=== PATIENT | female | born 1950 | race African-American/Black ===

== ENCOUNTER 2022-11-28 07:10 | Outpatient (REF) | payer OTHER, SELFPAY ==
--- NOTE | ~2022-11-28 | CT_ITS ---
EXAMINATION: CT HEAD WITHOUT CONTRAST CLINICAL INFORMATION: Headache. Tension-type headache. COMPARISON: None. TECHNIQUE: Contiguous axial imaging was performed from the skull base to vertex without intravenous contrast. This CT examination was performed using dose optimization techniques as appropriate, variously including the following: * Automated exposure control * Adjustment of mA and/or kV according to patient size (this includes techniques or standardized protocols for targeted exams where dose is matched to indication/reason for exam; i.e. extremities or head) Use of iterative reconstruction technique DLP: 756 mGy-cm. FINDINGS: There is no evidence of acute intracranial hemorrhage or territorial infarction. No abnormal mass effect or midline shift is seen. Maharaj to white matter differentiation is well preserved. No extra-axial fluid collections are identified. No hydrocephalus. No significant volume loss. There is no abnormal attenuation within the brain parenchyma. The osseous structures and soft tissues are normal. The mastoid air cells and visualized portions of the paranasal sinuses are well aerated. CT/CT head/brain wo IV con IMPRESSION: No acute intracranial pathology.
== END 2022-11-28 07:11 | disposition home or self-care (01) ==
LOC: HO.CT 07:10
PROVIDERS: PCP Hospitalist; Visit Provider Hospitalist
DX: G44.209 Tension-type headache, unspecified, not intractable (principal)
CPT/HCPCS: 70450

== ENCOUNTER 2022-11-30 10:36 | Outpatient (REF) | payer OTHER, SELFPAY ==
--- NOTE | ~2022-11-30 | XR_ITS ---
EXAMINATION: XR CHEST 2 VIEWS CLINICAL INFORMATION: Nonspecific reaction to tuberculosis skin test. COMPARISON: None. TECHNIQUE: Frontal and lateral views of the chest were obtained. FINDINGS: The heart, great vessels, pulmonary vasculature and mediastinum are normal. The lungs show no focal infiltrate, effusion or pneumothorax. No nodule, mass or thoracic adenopathy is seen. There is no acute osseous abnormality. XR/XR chest 2V IMPRESSION: No active cardiopulmonary disease.
--- NOTE | ~2022-11-30 | XR_ITS ---
EXAMINATION: XR PELVIS CLINICAL INFORMATION: Osteoarthritis COMPARISON: None TECHNIQUE: Single frontal view of the pelvis obtained. FINDINGS: There is no radiographic evidence of acute fracture or dislocation. No osteolytic or osteoblastic lesions. Mild degenerative osteoarthritis of both hip joints, and symphysis pubis.. Adjacent pubic rami are intact. Surrounding soft tissue is unremarkable. There is a small bone growth protruding from the cortex of the lesser trochanter toward the joint left femur measures 2 cm with well-defined sclerotic borders, most likely osteochondroma. XR/XR pelvis 1-2V IMPRESSION: * No radiographic evidence of acute fracture. * Mild degenerative osteoarthritis. * 2 cm bone growth protruding from the cortex of the lesser trochanter toward the left hip, most likely osteochondroma.
== END 2022-11-30 10:37 | disposition home or self-care (01) ==
LOC: HO.XRAY 10:36
PROVIDERS: PCP Hospitalist; Visit Provider Nurse Practitioner Adult Health
DX: M19.90 Unspecified osteoarthritis, unspecified site (principal); R76.11 Nonspecific reaction to tuberculin skin test without active tuberculosis
CPT/HCPCS: 71046; 72170

== ENCOUNTER 2022-12-20 10:51 | Outpatient (REF) | payer OTHER, SELFPAY ==
--- NOTE | ~2022-12-20 | MM_ITS ---
EXAMINATION: BONE DENSITOMETRY CLINICAL INDICATION: Screening. COMPARISON: None (current study represents initial baseline exam). TECHNIQUE: Using a [employer] DXA System (software version: 13.1) manufactured by [employer], dual-energy x-ray absorptiometry was performed of the lumbar spine and left hip. The images are of good technical quality. Summary results are attached. FINDINGS: AP SPINE L1-L4: BMD 1.132 g/cm2, Z-score 0.2, T-score -0.4, normal. LEFT FEMUR, NECK: BMD 0.825 g/cm2, Z-score -0.9, T-score -1.5, osteopenia. LEFT FEMUR, TOTAL: BMD 0.869 g/cm2, Z-score -0.8, T-score -1.1, osteopenia. IDENTIFIED RISK FACTORS: Menopause, height loss, history of fracture (adult), low calcium intake, rheumatoid arthritis, thiazide. HISTORY OF FRACTURE: Elbow. MEDICATIONS: Calcium, vitamin D. MM/XR DEXA axial skeleton IMPRESSION: 1. DIAGNOSIS: Osteopenia based on the lowest T-score value of -1.5 in the femoral neck applying World Health Organization criteria. 2. 10-YEAR FRACTURE RISK PREDICTION, FRAX: Major osteoporotic fracture (clinical spine, forearm, hip or shoulder) 9.5%. Hip fracture 1.6%. 3. Treatment Recommendations: NOF guidelines recommend consideration for treatment in postmenopausal women and men age 50 and older presenting with the following: -A hip or vertebral (clinical or morphometric) fracture. -T-score less than or equal to -2.5 at the femoral neck or spine after appropriate evaluation to exclude secondary causes. -Low bone mass at the hip or spine and a 10-year fracture probability by FRAX of greater than or equal to 3% for hip fracture or greater than or equal to 20% for major osteoporotic fracture based on the [place] adapted WHO algorithm. 4. Other Recommendations: All treatment decisions require clinical judgment and consideration of individual patient factors, including patient preferences, comorbidities, previous drug use, risk factors not captured in the FRAX model (e.g. frailty, falls, vitamin D deficiency, increased bone turnover, interval significant decline in bone density) and possible under or overestimation of fracture risk by FRAX. Additional medical evaluation for secondary cause of low bone mineral density may be appropriate. FUTURE SCAN RECOMMENDATION: People with diagnosed cases of osteoporosis or at high risk for fracture should have regular bone mineral density tests. For patients eligible for Medicare, routine testing is allowed once every 2 years. The testing frequency can be increased to one year for patients who have rapidly progressing disease, those who are receiving or discontinuing medical therapy to restore bone mass, or have additional risk factors.
--- NOTE | ~2022-12-20 | US_ITS ---
EXAMINATION: US ABDOMEN COMPLETE CLINICAL INFORMATION: Abdominal pain. COMPARISON: None TECHNIQUE: Real-time imaging of the abdominal viscera. FINDINGS: PANCREAS: Normal. ABDOMINAL AORTA: The proximal, mid, and distal segments are normal in caliber. INFERIOR VENA CAVA: Visualized portions are normal. LIVER: The liver is normal in size. The liver contour is normal. There is diffuse increased liver parenchymal echogenicity, consistent with infiltrative hepatocellular disease. No focal hepatic lesion. There is no intrahepatic biliary duct dilatation seen. GALLBLADDER: Normal. The gallbladder is physiologically distended without evidence of stones, sludge, polyps, wall thickening or pericholecystic fluid. COMMON BILE DUCT: Normal in caliber measuring 0.4 cm in diameter. RIGHT KIDNEY: A 0.8 cm benign-appearing renal cyst, no follow-up imaging recommended. No hydronephrosis or renal calculi. The kidney measures 10.8 cm in maximum dimension. LEFT KIDNEY: Normal. No hydronephrosis. No renal calculi or focal parenchymal lesions. The kidney measures 9.9 cm in maximum dimension. SPLEEN: Normal. The spleen measures 6.4 cm in maximum dimension. FREE FLUID: None. US/US abdomen complete IMPRESSION: Increased hepatic echogenicity which can be seen in the setting of hepatic steatosis or underlying liver disease.
--- NOTE | ~2022-12-20 | MM_ITS ---
EXAMINATION: MM SCREENING DIGITAL BREAST TOMOSYNTHESIS, BILATERAL CLINICAL INFORMATION: Screening. Asymptomatic. The lifetime risk of breast cancer based on the Tyrer-Cuzick Model is 8.8%. COMPARISON: Mammography: February 06, 2022 and studies dating back to November 25, 2019 TECHNIQUE: Digital breast tomosynthesis is performed in both the craniocaudal and mediolateral oblique views along with computer-aided detection (CAD). Synthesized 2D images are generated from the tomosynthesis. FINDINGS: The breasts are heterogeneously dense, which may obscure small masses (ACR BI-RADS breast composition Category c). There are no significant masses, abnormal calcifications, or other abnormalities. MM/MM tomosynthesis screening BI IMPRESSION: No significant changes from prior exam. ASSESSMENT: BI-RADS 1: Negative RECOMMENDATION: Routine annual mammography screening. This patient's information was entered into a reminder system with a target due date for their next mammogram.
== END 2022-12-20 10:52 | disposition home or self-care (01) ==
LOC: HO.US 10:51
PROVIDERS: Visit Provider Nurse Practitioner Adult Health
DX: Z12.31 Encounter for screening mammogram for malignant neoplasm of breast (principal); Z13.820 Encounter for screening for osteoporosis; R10.9 Unspecified abdominal pain; Z78.0 Asymptomatic menopausal state
CPT/HCPCS: 76700; 77063; 77067; 77080

== ENCOUNTER 2025-06-02 14:44 | Outpatient (AMB) | payer MEDICARE, SELFPAY ==
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
--- NOTE | 2025-06-02 14:46 | A.OFFVIS_ITS ---
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 State she has a cyst that has been there for about 6 moths and is causing pain, burning and limited ROM in small finger when making a fist. States no injury she can recall. Denies numbness, tingling or locking of any finger. Hx of left elbow fracture in 2002. Surgery was done at [facility]. STates last A1C was 7 and was done 2 moths ago. 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 She complains of a painful mass on her small finger for ~6 months-1 year now. This causes a burning sensation and limited ROM of her finger. She says this has been very tender for ~4 months. She denies any numbness or tingling. She denies any locking or catching [facility] Medical History (Updated 06/02/25 @ 15:02 by Ben Dominguez) Left elbow fracture Appendicitis Social History (Updated 06/02/25 @ 14:56 by Amisha Wills [facility]) Current occupational status: retired Current occupation: rt hand Review of Systems Const All systems reviewed & are unremarkable except as noted in HPI and below Physical Exam Vital Signs: BMI result Body Mass Index 29.5 Const General: cooperative, healthy appearing and no acute distress Orientation/consciousness: patient oriented x3 HEENT Head: Yes normocephalic and Yes atraumatic Eyes EOM: EOMs intact bilaterally Resp Effort & Inspection: normal respiratory effort and able to speak in complete sentences Cardio Jugular venous distension: no JVD Skin General skin exam: turgor normal Rashes: no rashes Neuro General: patient oriented x3 Extrem Other: Evaluation of Left Upper Extremity: The patient is alert, oriented, and in no acute distress Neuro: Median, Ulnar, Radial nerves motor and sensory intact and sensation is normal to the tips of all digits Vascular: Cap refill brisk ROM: She can make a fist and extend all her digits, with encouragement No locking or catching Skin: No lacerations or abrasions. General: No Ecchymosis. No Erythema or evidence of infection. There is a mass on the ulnar pad of the small finger. Measures ~5-6mm in diameter. Soft tissue mass, deep to the skin, rather TTP with a small amount of swelling around it. no erythema Psych Appearance: grossly normal Affect: normal affect Attitude: cooperative Assessment & Plan Assessment & Plan (1) Mass of finger of left hand: Code(s): R22.32 - Localized swelling, mass and lump, left upper limb Category: Medical (2) Diabetes mellitus: Code(s): E11.9 - Type 2 diabetes mellitus without complications Category: Medical Plan Assessment & Plan: 1. Left small finger painful mass Measures ~5-6 in diameter I educated her about this condition I discussed operative and non-operative treatment options The patient would like to proceed with surgery The risks and benefits of operative treatment were discussed with the patient and the patient wishes to proceed with surgery. These risks include, but are not limited to risk of damage to blood vessels, nerves, tendons, infection, recurrence, incomplete relief of preoperative symptoms, persistent pain, possible need for further surgery and the risks associated with regional blocks and anesthesia. The plan is to take the patient to the operating room sometime in the next few weeks for the following procedures: 1. Left small finger mass excisional biopsy, under local All of the preoperative paperwork including the consent was reviewed today. All the patient's questions were answered. The patient understands that they will be contacted by our supervisor belt and link assembly soon to schedule this procedure She denies blood thinners, asthma, heart, lung, kidney issues She is a Diabetic, her most recent HgA1c was ~7.1%. They will need an updated HgA1c that is <8.1% in order to proceed with surgery, and they expressed understanding Scribed for Alix Murphy MD by Ben Dominguez, manager medical device, on 06/02/25 at 3:00 PM, EST. Coding Level of Care Code New Pt Level 4 (15684) Diagnoses Mass of finger of left hand R22.32 Diabetes mellitus E11.9
[2025-06-02 14:47] VITALS: BMI 29.5
== END 2025-06-02 15:10 | disposition home or self-care (01) ==
PROVIDERS: PCP Hospitalist; Visit Provider Orthopaedic Surgery
DX: R22.32 Localized swelling, mass and lump, left upper limb (principal); E11.9 Type 2 diabetes mellitus without complications
CPT/HCPCS: 99204

== ENCOUNTER → 2025-06-02 14:44 | Outpatient (BNVA) | payer MEDICARE, SELFPAY | PROVIDERS: PCP Hospitalist; Visit Provider Orthopaedic Surgery | DX: R22.32 Localized swelling, mass and lump, left upper limb (principal); E11.9 Type 2 diabetes mellitus without complications | CPT/HCPCS: 99202 ==

== ENCOUNTER 2025-06-07 08:15 | Day surgery (SDC) | payer MEDICARE, SELFPAY ==
--- OUTSIDE RECORDS SUMMARY | 2025-06-03 10:03 | XMS_ITS | Patient Health Record ---
Author Organization [facility] Address [address] [place] [address] Care Team Providers Care Senior Visual Designer Name Role Phone ERICH REYES Primary Care Provider Vaughn Stiles Unavailable [phone] Allergies Allergen (clinical drug ingredient) Drug/Non Drug Allergy documented on EMR Reaction Allergy Type Onset Date Status lisinopril Lisinopril swelling of lips Drug Allergy Active Results Component Value Reference Range Notes Albumin/Creatinine Ratio,Uri ne-[id number] Reviewed date:01/14/2025 07:48:49 AM Interpretation: Performing Lab:[facility], [address] [facility], Phone - [phone], Director - MDJodry Notes/Report: Creatinine, Urine 90.9 Not Estab. mg/dL Albumin, Urine <3.0 Not Estab. ug/mL Alb/Creat Ratio <3 0-29 mg/g creat Normal: 0 - 29 Moderately increased: 30 - 300 Severely increased: >300 Lipid Panel-[id number] Reviewed date:01/14/2025 07:48:52 AM Interpretation: Performing Lab:[facility], [address] [facility], Phone - [phone], Director - MDJodry Notes/Report: Cholesterol, Total 183 100-199 mg/dL Triglycerides 135 0-149 mg/dL HDL Cholesterol 52 >39 mg/dL VLDL Cholesterol Lui 24 5-40 mg/dL LDL Chol Calc ([facility]) 107 0-99 mg/dL Comp. Metabolic Panel (14)-3 Reviewed date:01/14/2025 07:48:56 AM Interpretation: Performing Lab:[facility], [address] [facility], Phone - [phone], Director - MDJodry Notes/Report: Glucose 96 70-99 mg/dL BUN 12 8-27 mg/dL Creatinine 0.82 0.57-1.00 mg/dL eGFR 75 >59 mL/min/1.73 BUN/Creatinine Ratio 15 12-28 Sodium 144 134-144 mmol/L Potassium 4.4 3.5-5.2 mmol/L Chloride 103 96-106 mmol/L Carbon Dioxide, Total 27 20-29 mmol/L Calcium 9.8 8.7-10.3 mg/dL Protein, Total 6.9 6.0-8.5 g/dL Albumin 4.3 3.8-4.8 g/dL Globulin, Total 2.6 1.5-4.5 g/dL Bilirubin, Total 0.2 0.0-1.2 mg/dL Alkaline Phosphatase 98 44-121 IU/L AST (SGOT) 24 0-40 IU/L ALT (SGPT) 14 0-32 IU/L Hemoglobin [id number] Reviewed date:01/14/2025 07:48:59 AM Interpretation: Performing Lab:Alexis Obando, [address] [facility], Phone - [phone], Director - Chucho Notes/Report: Hemoglobin A1c 7.0 4.8-5.6 % . Prediabetes: 5.7 - 6.4 Diabetes: >6.4 Glycemic control for adults with diabetes: <7.0 Lipid Panel-[id number] Reviewed date:05/25/2025 12:04:40 PM Interpretation: Performing Lab:Alexis Obando, [address] [facility], Phone - [phone], Director - Chucho Notes/Report: Cholesterol, Total 158 100-199 mg/dL Triglycerides 208 0-149 mg/dL HDL Cholesterol 39 >39 mg/dL VLDL Cholesterol Lui 35 5-40 mg/dL LDL Chol Calc (NIH) 84 0-99 mg/dL Urine Culture, Routine-01000 7 Reviewed date:05/25/2025 10:57:28 AM Interpretation: Performing Lab:Neftaly Ornelas, [address], [place], Phone - [phone], Director - Rich Notes/Report: Clinical Information:SRC: URINE Clinical Information:SRC: URINE Urine Culture, Routine Final report Result 1 Culture shows less than 10,000 colony forming units of bacteria per milliliter of urine. This colony count is not generally considered to be clinically significant. Hemoglobin [id number] Reviewed date:05/25/2025 10:51:33 AM Interpretation: Performing Lab:[facility] [place], [address], [place], Phone - [phone], Director - Chucho Notes/Report: Hemoglobin A1c 7.7 4.8-5.6 % . Prediabetes: 5.7 - 6.4 Diabetes: >6.4 Glycemic control for adults with diabetes: <7.0 H. pylori Stool Ag, [id number] Reviewed date:12/22/2024 08:08:32 AM Interpretation: Performing Lab:[facility] [place], [address], [place], Phone - [phone], Director - Chucho Notes/Report: Clinical Information:SRC:ST H. pylori Stool Ag, EIA Negative Negative TISSUE EXAM Reviewed date:05/19/2025 05:47:31 PM Interpretation: Performing Lab: Notes/Report: Labeled random ga gastric bod . Received in formalin are five soft, guardado-pink to red tissue fragments ranging from 0.15 cm to 0.25 cm in greatest diameter, which are wrapped in paper and submitted in toto in one cassette, five pieces, multiple levels. B. Esophagus, ge junction biopsy: Unless otherwise specified, all tissue is 10% NB formalin fixed and paraffin embedded. Labeled GE Juncti esophagus . Received in formalin are two soft, red-white tissue fragments measuring approximately 0.25 cm in greatest diameter, which are wrapped in paper and submitted in toto in one cassette, two pieces, multiple levels. C. Gastric, Antrum, polyp: Labeled polyp gastric ant . Received in formalin is a soft, guardado, 0.35 cm in greatest diameter polypoid tissue which is inked green at the base, wrapped in paper and submitted in toto in one cassette, one piece, multiple levels. TS Final Diagnosis A. Stomach, random s ites, biopsy: - Gastric antral-type mucosa with patchy active inflammation and features of suggestive of chemical etiology (focal surface erosion, elongation and tortuosity of foveolar pits, and mucin depletion without a dense associated lymphoplasmacytic infiltrate). - No intestinal metaplasia identified. - No Helicobacter pylori identified on hematoxylin and eosin-stained sections. B. Gastroesophageal junction, biopsy: - Esophageal squamous mucosa with rare intraepithelial eosinophils (maximum of one intraepithelial eosinophil in a high-power field) and reactive changes including focal basilar hyperplasia and spongiosis. - Gastric cardiac type mucosa with chronic and patchy active inflammation and reactive epithelial changes. - No intestinal metaplasia and no dysplasia identified. - Although no Helicobacter pylori are seen on hematoxylin and eosin-stained sections, given the presence of chronic and active inflammation at this site, an immunohistochemical study for Helicobacter pylori was performed. The immunohistochemical study for Helicobacter pylori is negative (appropriate control reviewed). C. Polyp, antrum, polypectomy: - Gastric oxyntic type mucosa with patchy surface epithelial denudation, focal chronic inflammation and few mildly dilated fundic-type glands. (See note.) - Few fragments of refractile material that is birefringent on polarized light examination and a rare fragment of non-refractile material are noted, which raise the possibility of pill fragments (versus an artifact of specimen collection/processing). Note: Although the rare mildly dilated fundic glands raise the consideration of an incipient fundic gland polyp, the polypoid appearance to this tissue may be related to the chronic inflammation. The significance of the foreign material seen on H&E-stained sections is not entirely clear as there does not appear to be an associated tissue response. They could represent pill fragments or could be an artifact of specimen collection/processing. No intestinal metaplasia and no dysplasia are identified. Gross Description A. Gastric, Body, ra ndom biopsy: Disclaimer NOTE: The immunohistochemical tests and in situ hybridization tests were developed and their performance characteristics were determined by [facility]. They have not been cleared or approved by the U.S. Food and Drug Administration. The FDA has determined that such clearance or approval is not necessary. These tests are used for clinical purposes. They should not be regarded as investigational or for research. This laboratory is certified under the Clinical Laboratory Improvement Amendments of 1988 (CLIA) as qualified to perform high complexity clinical laboratory testing. (controls appropriate) CT CHEST WO CONTRAST Reviewed date:05/20/2025 10:44:02 AM Interpretation: Performing Lab: Notes/Report: Note See Note [facility], a member of [employer] Patient Name: LORIN HIGHTOWER Date of : 1950 Reason for Exam: cough Exam Date: 05/13/2025 [id number] EST Report Status: Final Ordering Provider: VAUGHN STILES PCP: ERICH REYES INDICATION: Cough TECHNIQUE: CT scan o f the chest obtained without contrast. Scanner: Viximo ed 64 slice VCT Dose reduction techn ique: ASIR (Adaptive statistical iterative reconstruction) and/or AEC (automated exposure control) Dose: total exam DLP 772 mGY per cm COMPARISON: No prior chest CT available for comparison. Chest x-ray from April 10, 2025 reviewed. FINDINGS: Lung mays are well aerated without infiltrates or effusions. Minimal atelectatic changes noted anterolaterally within the lung bases. 2 mm performed noncalcified nodule within the right lower lobe inferiorly on series 3 image 87 as well as series 3 image 80.. No thoracic lymphadenopathy. Trachea and esophagus are within normal limits. Heart normal in size and shape without pericardial effusion. Unopacified mediasti nal vascular structures are grossly normal in course and caliber for the patient's age. Bony structures of t he thorax demonstrate mild scoliotic changes. Visualized portion u pper abdomen are unremarkable. IMPRESSION: No infiltrates or effusions. 2 mm right lower lob e pulmonary nodules likely inflammatory. No thoracic lymphadenopathy. -------- FINAL REPOR T -------- Dictated By: Karely Grove Dictated Date: 05/13 15:00 ET Assigned Physician: Karely Grove Reviewed and Electronically Signed By: Karely Grove Signed Date: 025 15:05 ET Workstation ID: [id number] Transcribed By: Self Edit Transcribed Date: 05/13/2025 15:00 ET MR SHOULDER WO CONTRAST LEFT Reviewed date:11/16/2024 11:11:04 AM Interpretation: Performing Lab: Notes/Report: Note See Note [facility], a member of [employer] Patient Name: LORIN HIGHTOWER Date of : 1950 Reason for Exam: PAIN Exam Date: 11/09/2024 [id number] EST Report Status: Final Ordering Provider: MAYELA MCDONNELL PCP: ERICH REYES PROCEDURE: Left shou lder MRI INDICATION: Pain TECHNIQUE: Multiplan ar, multisequence MRI of the left shoulder Without contrast. COMPARISON: No prior s available. FINDINGS: There is severe rota tor cuff tendinosis. Diffuse high-grade partial-thickness articular surface tear of supraspinatus. Small focal full-thickness tear is seen along the anterior aspect of the supraspinatus at the footprint measuring 7 mm in AP dimension. No tendon retraction. Infraspinatus tendin osis without tear. Full-thickness tear of subscapularis with retraction of the torn fibers by approximately 2.4 cm of tendon retraction. Moderate, chronic mu scle atrophy at supraspinatus and subscapularis. Biceps tendon is sub luxed medially into the torn subscapularis fibers. Severe biceps tendinosis. No labral tear. No fracture or suspi cious marrow replacing lesion. Glenohumeral alignme nt is preserved. No focal cartilage defects. Moderate joint effus ion indicating with the subacromial/subdeltoid bursa. Small synovitis and debris noted within the joint. Glenohumeral and coracoclavicular ligaments are intact. Moderate degenerativ e changes are seen at the acromioclavicular joint with undersurface spurring. Small subacromial/subdeltoid bursal fluid. IMPRESSION: Severe rotator cuff tendinosis with full-thickness, retracted subscapularis tendon tear and chronic subscapularis muscle atrophy. Diffuse high-grade partial-thickness articular surface tear of supraspinatus with small focal full-thickness tear anteriorly at the footprint. No supraspinatus tendon retraction. Chronic supraspinatus muscle atrophy. Biceps tendon is sub luxed medially into the torn subscapularis fibers with severe biceps tendinosis. Moderate degenerativ e changes at the acromioclavicular joint with undersurface spurring. Small subacromial/subdeltoid bursitis. -------- FINAL REPOR T -------- Dictated By: RICARDO MATTA Dictated Date: 11/12 12:42 ET Assigned Physician: RICARDO MATTA Reviewed and Electronically Signed By: RICARDO MATTA Signed Date: 025 13:15 ET Workstation ID: [id number] Transcribed By: Self Edit Transcribed Date: 11/12/2024 12:59 ET Hgb A1c with eAG Estimation- [id number] Reviewed date:07/24/2024 04:36:33 PM Interpretation: Performing Lab:[facility] [place], [address] [facility], Phone - [phone], Director - Chucho Notes/Report: Hemoglobin A1c 7.0 4.8-5.6 % . Prediabetes: 5.7 - 6.4 Diabetes: >6.4 Glycemic control for adults with diabetes: <7.0 Estim. Avg Glu (eAG) 154 Ambig Abbrev CMP14 Default A hand-written panel/profile was received from your office. In accordance with the [facility] Ambiguous Test Code Policy dated May 2003, we have completed your order by using the closest currently or formerly recognized AMA panel. We have assigned Comprehensive Metabolic Panel (14), Test Code #114877 to this request. If this is not the testing you wished to receive on this specimen, please contact the [employer] Client Inquiry/Technical Services Department to clarify the test order. We appreciate your business. Lipid Panel-[id number] Reviewed date:07/24/2024 04:36:35 PM Interpretation: Performing Lab:[facility], [address] [facility], Phone - [phone], Director - Chucho Notes/Report: Cholesterol, Total 134 100-199 mg/dL Triglycerides 113 0-149 mg/dL HDL Cholesterol 48 >39 mg/dL VLDL Cholesterol Lui 20 5-40 mg/dL LDL Chol Calc (NIH) 66 0-99 mg/dL Comp. Metabolic Panel (14)-3 30166 Reviewed date:07/24/2024 04:36:37 PM Interpretation: Performing Lab:[facility] [place], [address] [facility], Phone - [phone], Director - Chucho Notes/Report: Glucose 99 70-99 mg/dL BUN 15 8-27 mg/dL Creatinine 0.79 0.57-1.00 mg/dL eGFR 79 >59 mL/min/1.73 BUN/Creatinine Ratio 19 12-28 Sodium 144 134-144 mmol/L Potassium 4.1 3.5-5.2 mmol/L Chloride 101 96-106 mmol/L Carbon Dioxide, Total 28 20-29 mmol/L Calcium 9.8 8.7-10.3 mg/dL Protein, Total 6.8 6.0-8.5 g/dL Albumin 4.4 3.8-4.8 g/dL Globulin, Total 2.4 1.5-4.5 g/dL Bilirubin, Total 0.3 0.0-1.2 mg/dL Alkaline Phosphatase 89 44-121 IU/L AST (SGOT) 29 0-40 IU/L ALT (SGPT) 17 0-32 IU/L Albumin/Creatinine Ratio,Uri [id number] Reviewed date:07/24/2024 04:36:43 PM Interpretation: Performing Lab:[facility] [place], [address], [place], Phone - [phone], Director - Chucho Notes/Report: Creatinine, Urine 123.4 Not Estab. mg/dL Albumin, Urine 14.2 Not Estab. ug/mL Alb/Creat Ratio 12 0-29 mg/g creat Normal: 0 - 29 Moderately increased: 30 - 300 Severely increased: >300 Reason For Referral Reason Evaluation and manag ement Diagnosis 1 Accident due to [facility] anical fall without injury, subsequent encounter (W19.XXXD) Referral Organization [facility] Referring Provider First Name Vaughn Referring Provider Last Name Linsey Referred Provider Specialty Physical The rapist General Notes Referral sent to [facility] [place] ([address] [place] [address] [phone]) - Office will call patient for scheduling. Debby Jersey 09/10/2024 04:32:39 PM > Referral Priority Routine Reason [facility], she w as seen by their department but need a referral Diagnosis 1 Other cyst of bone, left hand (M85.642) Referral Organization [facility] Referring Provider First Name Vaughn Referring Provider Last Name Linsey Referred Provider Specialty Hand Surgery General Notes Referral faxed to [facility]. Please call patient to schedule.Moris Christy 12/25/2024 04:55:22 PM > Referral Priority Routine Reason significant tear of 1 of the rotator cuff muscles and tendinitis along with osteoarthritis Diagnosis 1 Pain in left shoulde r (M25.512) Diagnosis 2 Unspecified osteoart hritis, unspecified site (M19.90) Referral Organization [facility] Referring Provider First Name ERICH Referring Provider Last Name AMY Referring Provider Speciality Internal M edicine Referred Provider Specialty Orthopedic S urgery General Notes Referral faxed to [facility]. Please call patient to schedule appointment.Jaison Crystal 11/16/2024 11:12:23 AM > Referral Priority Routine Reason [facility]-Please evaluate and treat Diagnosis 1 Other bursal cyst, u nspecified hand (M71.349) Referral Organization [facility] Referring Provider First Name Vaughn Referring Provider Last Name Linsey Referred Provider Specialty Hand Surgery General Notes Referral faxed to [facility]. Please call patient to schedule.Moris Christy 12/25/2024 04:46:39 PM > Referral Priority Routine Reason please evaluate and treat Diagnosis 1 Gastro-esophageal re flux disease without esophagitis (K21.9) Referral Organization [facility] Referring Provider First Name Vaughn Referring Provider Last Name Linsey Referred Provider Specialty Gastroentero logy General Notes Referral was [facility] t [facility]. Please contact patient for scheduling.Guzman Rashida 12/23/2024 07:59:14 AM > Referral Priority Routine Reason [facility] - Dr Jeniffer [facility] please evaluate and treat Diagnosis 1 Type 2 diabetes basilio itus with foot ulcer (E11.621) Referral Organization [facility] Referring Provider First Name ERICH Referring Provider Last Name AMY Referring Provider Speciality Internal edicine Referred Provider Specialty Podiatry General Notes Referral was faxed t o [facility]. Please contact patient for scheduling.Guzman Rashida 01/08/2025 01:13:21 PM > Referral Priority Routine Reason itching of scalp P lease evaluate and treat Diagnosis 1 Seborrhea capitis (L 21.0) Referral Organization [facility] Referring Provider First Name ERICH Referring Provider Last Name AMY Referring Provider Speciality Internal edicine Referred Provider Specialty Dermatology General Notes Please call the [facility] ent to schedule the appointment, [facility]. Please contact them at [phone], Rayna Pacheco 03/11/2025 04:21:53 PM > Referral Priority Routine Reason Cyst left 5 finger Please evaluate and treat Diagnosis 1 Sebaceous cyst (L72. 3) Referral Organization [facility] Referring Provider First Name ERICH Referring Provider Last Name JOHN Referring Provider Speciality Internal M edicine Referred Provider Specialty Surgery General Notes Please call the [facility]er ent to schedule the appointment, [facility]. Please contact them at [phone], Rayna Pacheco 03/18/2025 03:39:53 PM > Referral Priority Urgent Reason PLEASE EVALUATE AND TREAT Please evaluate and treat Diagnosis 1 Cough (R05.9) Referral Organization [facility] Referring Provider First Name Vaughn Referring Provider Last Name Linsey Referred Provider Specialty Pulmonology General Notes Please call the [facility] ent to schedule the appointment, Encounter created and SMS sent to the pt., Rayna Pacheco 04/26/2025 04:35:06 PM > Referral Priority Routine Medications Medication SIG (Take, Route, Frequency, Duration) Notes Start Date End Date Status hydrOXYzine HCl 25 MG 1 tablet as needed Orally Once a day; Duration: 30 days 12/31/2023 Not-Taking ZyrTEC 10 MG 1 tablet Orally Once a day; Duration: 30 day(s) Not-Taking Fluticasone Propionate 50 MCG/ACT SHAKE LIQUID AND USE 1 SPRAY in EACH NOSTRIL EVERY DAY Nasally Twice a day; Duration: 30 days Active tiZANidine HCl 2 MG TAKE 1 TABLET BY MOUTH THREE TIMES DAILY FOR 7 DAYS NEEDED; Duration: 7 Not-Taking Albuterol Sulfate HFA 108 (90 Base) MCG/ACT 1 puff as needed Inhalation every 4 hrs; Duration: 30 days Active Doxycycline Hyclate 50 MG 1 capsules Ora lly Twice a day; Duration: 7 days 02/19/2024 Not-Taking Esomeprazole Magnesium 40 MG 1 capsule 1 /2 to 1 hour before morning meal Orally Once a day; Duration: 30 days 05/20/2025 Active Hydrocortisone Anti-Itch 1 % 1 applicati on Externally Once a day; Duration: 30 days 11/01/2022 Active metFORMIN HCl 1000 MG 1 tablet with a me al Orally 2 TIMES A DAY; Duration: 30 day(s) Active Amitriptyline HCl 10 MG 1 tablet at bedt linnea Orally Once a day; Duration: 30 day(s) 11/29/2022 Not-Taking Mylanta Maximum Strength 400-400-40 MG/5ML 10 mL as needed Orally Twice a day; Duration: 30 days 05/20/2025 Active Ozempic (0.25 or 0.5 MG/DOSE) 2 MG/3ML once weekly Subcutaneous weekly 05/11/2024 Active Doxycycline Hyclate 100 MG 1 capsule Ora lly Twice a day; Duration: 7 days 12/15/2024 Not-Taking Fluconazole 150 MG 1 tablet Orally daily; Duration: 1 days 05/20/2025 Active Atorvastatin Calcium 10 MG TAKE 1 TABLET BY MOUTH EVERY DAY; Duration: 90 days Active Aspirin 81 MG 1 tablet Orally Once a day Active Ketoconazole 2 % as directed Externally 4 times a week; Duration: 30 days 03/11/2025 Active Ibuprofen 600 MG 1 tablet with food or milk as needed Orally Three times a day; Duration: 30 days Not-Taking Ampicillin 500 MG 1 capsule Orally 8 hours; Duration: 5 days 12/31/2023 Not-Taking FreeStyle [place] Lite w/Device as directed in vitro daily; Duration: 90 days Active Symbicort 80-4.5 MCG/ACT as directed Inhalation twice a day; Duration: 30 days 04/22/2025 Active FreeStyle Lancets - as directed for use with freestyle llite sc daily; Duration: 90 days Active hydroCHLOROthiazide 25 MG 1 tablet in morning Orally Once a day; Duration: 90 days Active Immunizations Vaccine Route Administration Date Status Comme nts COVID 19 Pfizer Unknown 02/21/2021 Administered COVID 19 Pfizer Unknown 03/14/2021 Administered COVID-19 Pfizer Unknown 09/15/2022 Administered Prevnar 20 Unknown 12/31/2022 Administered Shingrix Unknown 12/31/2022 Administered Shingrix Unknown 01/08/2024 Administered Td (adult) preservative free Unknown 03/25/2014 Adminis tered Social History Tobacco Use: Social History Observation Description Date Details (start date - stop date) Never Smoker NA - NA Tobacco Use/Smoking Question Answer Notes Are you a nonsmoker Alcohol Screen (Audit-C) Question Answer Notes Did you have a drink containing alcohol in the p ast year? No Points 0 Interpretation Negative Problems Problem Type SNOMED Code ICD Code Onset Dates Problem Status W/U Status Risk Notes Problem Foot ulcer due to type 2 diabetes mellitus (6138413493540) Type 2 diabetes mellitus with foot ulcer (E11.621) Active confirmed Problem Disorder due to type 2 diabetes mellitus (515605424) Type 2 diabetes mellitus with unspecified complications (E11.8) Active confirmed Problem Hyperlipidemia (98876048) Hyperlipidemia, unspecified (E78.5) Active confirmed Problem Tension-type headache (251039572) Tension-type headache, unspecified, not intractable (G44.209) Active confirmed Problem Essential hypertension (06042728) Essential (primary) hypertension (I10) Active confirmed Problem Seasonal allergic rhinitis (657976921) Other seasonal allergic rhinitis (J30.2) Active confirmed Problem Mild intermittent asthma (887385586) Mild intermittent asthma, uncomplicated (J45.20) Active confirmed Problem Gastro-esophageal reflux disease without esophagitis (512184497) Gastro-esophageal reflux disease without esophagitis (K21.9) Active confirmed Problem Osteoarthritis (647784204) Unspecified osteoarthritis, unspecified site (M19.90) Active confirmed Problem Pain of right knee region (finding) (048553947503305) Pain in right knee (M25.561) Active confirmed Problem Visual hallucinations (93667496) Visual hallucinations (R44.1) Active confirmed Problem Hallucinations (9654460) Hallucinations, unspecified (R44.3) Active confirmed Problem Age-related osteoporosis (109213469) Osteoporosis without current pathological fracture, unspecified osteoporosis type (M81.0) Active confirmed Problem Bilateral carpal tunnel syndrome (5171274030603144 1) Bilateral carpal tunnel syndrome (G56.03) Active confirmed Problem Type II diabetes mellitus without complication (980319089) Controlled type 2 diabetes mellitus without complication, without long-term current use of insulin (E11.9) Active confirmed Vital Signs Heart Rate 76 /min 05/20/2025 Temperature 97.1 degrees Fahrenheit 05/20/2025 Oximetry 97 % 05/20/2025 Blood pressure diastolic 80 mm Hg 05/20/2025 Height 60 in 05/20/2025 Blood pressure systolic 130 mm Hg 05/20/2025 Weight 180.2 lbs 05/20/2025 BMI 35.19 kg/m2 05/20/2025 Encounters Encounter Location Date Provider Diagnosis [facility] [address] [place] [address] 10/29/2024 Vaughn [facility] [address] [place] [address] 07/16/2024 ERICH REYES Type 2 diabetes mellitus with unspecified complications E11.8 ; Essential (primary) hypertension I10 ; Hyperlipidemia, unspecified E78.5 and Gastro-esophageal reflux disease without esophagitis K21.[address] [place] [address] 07/30/2024 Ghadeer Mazloum Essential (primary) hypertension I10 and Pruritus, unspecified L29.[address] [place] [address] 09/10/2024 Ghadeer Mazloum Accident due to mechanical fall without injury, subsequent encounter W19.XXXD ; Pain in left shoulder M25.512 ; Pain in left knee M25.562 and Essential (primary) hypertension I10 [address] [address] 10/30/2024 Ghadeer Mazloum Other cyst of bone, left hand M85.[address] [address] 12/15/2024 Ghadeer Mazloum Abdominal bloating R14.0 ; Folliculitis L73.9 ; Mild intermittent asthma, uncomplicated J45.20 and Gastro-esophageal reflux disease without esophagitis K21.[address] [address] 12/22/2024 Ghadeer Mazloum Other bursal cyst, unspecified hand M71.[address] [address] 01/08/2025 ERICH REYES Type 2 diabetes mellitus with unspecified complications E11.8 ; Encounter for general adult medical examination without abnormal findings Z00.00 ; Essential (primary) hypertension I10 ; Hyperlipidemia, unspecified E78.5 and Mild intermittent asthma, uncomplicated J45.[address] [address] 03/11/2025 ERICH REYES Type 2 diabetes mellitus with unspecified complications E11.8 ; Seborrhea capitis L21.0 ; Essential (primary) hypertension I10 ; Hyperlipidemia, unspecified E78.5 and Mild intermittent asthma, uncomplicated J45.[address] [place] [address] 03/18/2025 [facility] Seborrhea capitis L2 1.0 ; Sebaceous cyst L72.3 ; Type 2 diabetes mellitus with unspecified complications E11.8 ; Essential (primary) hypertension I10 ; Hyperlipidemia, unspecified E78.5 and Mild intermittent asthma, uncomplicated J45.20 [facility] [address] [place] [address] 04/22/2025 Ghadeer Mazloum Cough R05.9 and Essential (primary) hypertension I10 [facility] [address] [place] [address] 05/20/2025 Ghadeer Mazloum Acute gastritis with out bleeding K29.00 ; Bilateral carpal tunnel syndrome G56.03 ; Dysuria R30.0 and Type 2 diabetes mellitus with unspecified complications E11.8 [facility] [address] [place] [address] 07/21/2024 [facility] [address] [place] [address] 07/30/2024 [facility] [address] [place] [address] 09/09/2024 [facility] [address] [place] [address] 09/10/2024 [facility] [address] [place] [address] 09/16/2024 [facility] [address] [place] [address] 10/14/2024 [facility] [address] [place] [address] 10/23/2024 [facility] [address] [place] [address] 10/29/2024 [facility] [address] [place] [address] 11/16/2024 [facility] [address] [place] [address] 12/23/2024 [facility] [address] [place] [address] 12/23/2024 [facility] [address] [place] [address] 12/25/2024 [facility] [address] [place] [address] 12/25/2024 [facility] [address] [place] [address] 01/08/2025 [facility] [address] [place] [address] 04/08/2025 [facility] [address] [place] [address] 04/12/2025 [facility] [address] [place] [address] 04/22/2025 [facility] [address] [place] [address] 04/26/2025 [facility] [address] [place] [address] 05/10/2025 [facility] [address] [place] [address] 05/25/2025 [facility] Assessments Encounter Date Diagnosis (ICD Code) Assessment Notes Treatment Notes Treatment Clinical Notes Section Notes 07/16/2024 Type 2 diabetes mellitus with unspecified complications (ICD-10 - E11.8) Mrs. Hightower is 73 years old female with hypertension, asthma, seasonal allergies, hyperlipidemia, type 2 diabetes mellitus here for follow up. Plan is as follows: Type II diabetes mellitus. She checks her blood sugar at home and denies hypoglycemic and hyperglycemic episodes. She is on right medications. She has seen an level vial sealer for the past year. Foot care discussed. check A1c. Hypertension. Her blood pressure is running high in the office today. She did not take her blood pressure pill this morning. Cut back on sodium intake. Advised appropriate hydration, cardio exercises and weight loss. Continue current regimen. Hyperlipidemia. Continue Atorvastatin 10 MG once a day. GERD. Stable on Pantoprazole 20 MG once a day. Blood work reviewed with patient and questions answered. Screening blood work before next appointment. General health concerns discussed with patient. Scribe services used to formulate this note under HIPAA compliance and under [place] law mandated for scribe services. Patient aware of service. Verbal consent and written consent taken from the patient. Patient understands and verbalizes understanding of the scribes services and all questions answered regarding scribes services. Patient agrees to use of scribes services. 07/16/2024 Essential (primary) hypertension (ICD-10 - I10) Mrs. Hightower is 73 years old female with hypertension, asthma, seasonal allergies, hyperlipidemia, type 2 diabetes mellitus here for follow up. Plan is as follows: Type II diabetes mellitus. She checks her blood sugar at home and denies hypoglycemic and hyperglycemic episodes. She is on right medications. She has seen an level vial sealer for the past year. Foot care discussed. check A1c. Hypertension. Her blood pressure is running high in the office today. She did not take her blood pressure pill this morning. Cut back on sodium intake. Advised appropriate hydration, cardio exercises and weight loss. Continue current regimen. Hyperlipidemia. Continue Atorvastatin 10 MG once a day. GERD. Stable on Pantoprazole 20 MG once a day. Blood work reviewed with patient and questions answered. Screening blood work before next appointment. General health concerns discussed with patient. Scribe services used to formulate this note under HIPAA compliance and under [place] law mandated for scribe services. Patient aware of service. Verbal consent and written consent taken from the patient. Patient understands and verbalizes understanding of the scribes services and all questions answered regarding scribes services. Patient agrees to use of scribes services. 09/10/2024 Accident due to mechanical fall without injury, subsequent encounter (ICD-10 - W19.XXXD) Mrs. Hightower is 73 years old female with hypertension, asthma, seasonal allergies, hyperlipidemia, type 2 diabetes mellitus here for follow-up after she had a mechanical fall that happened two day ago as she was going down the busbut there was a malfunction in the stairs. ER workup is negative for abnormalities. Plan as follows: Mechanical fall Pain in the left shoulder/pain in the left knee - I will start patient on oxycodone for pain until she sees Physical therapy. Referred patient to PT. Advised on taking Tylenol as needed she can also use compressions. HTN: - Blood pressure is elevated. She did not take her medication today. We will check BP in one week.Advised on reducing salt intake, hydration and medication compliance.We will check BP. I have rendered the services for this patient under direct supervision of Dr. Reyes, who did not see the patient but was available upon request 10/30/2024 Other cyst of bone, left hand (ICD-10 - M85.642) Mrs. Hightower is 74 years old female with hypertension, asthma, seasonal allergies, hyperlipidemia, type 2 diabetes mellitus here for possible cyst on the left fiifth digit. Plan as follows: Cyst on the fifith digit - She was evaluated by [facility]. Xray was performed and per patient it was non-concerning. She states that she needs a referral for cyst drainage. Referral is placed, I have rendered the services for this patient under direct supervision of Dr. Reyes, who did not see the patient but was available phone 01/08/2025 Type 2 diabetes mellitus with unspecified complications (ICD-10 - E11.8) Lorin is 74 years old pleasant lady with DM type II, hyperlipidemia, hypertension, acid reflux, mild intermittent asthma is here for annual physical. Plan is as follows DM type II. Her last A1c was 7 which is within recommended range. She is on Ozempic 0.25 mg along with metformin 1000 mg twice a day. She is on statins. She is seeing level vial sealer earlier this year. Foot care discussed and referral to podiatry. Hypertension/hyper lipidemia. Blood pressure well controlled on HCTZ 25 mg daily along with atorvastatin 10 mg daily and last lipid panel was within reasonable limits Acid reflux. Continue on Protonix 20 mg daily and she is on sucralfate 1 g twice a day Mild intermittent asthma. Well controlled on the controlled inhaler as needed. EKG is normal sinus rhythm at 63 bpm with no acute ST or T wave changes, no bundle branch blocks, normal intervals She is up to date on a specific screening. She is full code and her daughter Mayela Watson is her healthcare proxy.MOLST form discussed with the patient 09/10/2024 Pain in left shoulder (ICD-10 - M25.512) Mrs. Hightower is 73 years old female with hypertension, asthma, seasonal allergies, hyperlipidemia, type 2 diabetes mellitus here for follow-up after she had a mechanical fall that happened two day ago as she was going down the busbut there was a malfunction in the stairs. ER workup is negative for abnormalities. Plan as follows: Mechanical fall Pain in the left shoulder/pain in the left knee - I will start patient on oxycodone for pain until she sees Physical therapy. Referred patient to PT. Advised on taking Tylenol as needed she can also use compressions. HTN: - Blood pressure is elevated. She did not take her medication today. We will check BP in one week.Advised on reducing salt intake, hydration and medication compliance.We will check BP. I have rendered the services for this patient under direct supervision of Dr. eRyes, who did not see the patient but was available upon request 01/08/2025 Encounter for general adult medical examination without abnormal findings (ICD-10 - Z00.00) Lorin is 74 years old pleasant lady with DM type II, hyperlipidemia, hypertension, acid reflux, mild intermittent asthma is here for annual physical. Plan is as follows DM type II. Her last A1c was 7 which is within recommended range. She is on Ozempic 0.25 mg along with metformin 1000 mg twice a day. She is on statins. She is seeing level vial sealer earlier this year. Foot care discussed and referral to podiatry. Hypertension/hyper lipidemia. Blood pressure well controlled on HCTZ 25 mg daily along with atorvastatin 10 mg daily and last lipid panel was within reasonable limits Acid reflux. Continue on Protonix 20 mg daily and she is on sucralfate 1 g twice a day Mild intermittent asthma. Well controlled on the controlled inhaler as needed. EKG is normal sinus rhythm at 63 bpm with no acute ST or T wave changes, no bundle branch blocks, normal intervals She is up to date on a specific screening. She is full code and her daughter Mayela Watson is her healthcare proxy.MOLST form discussed with the patient 03/11/2025 Type 2 diabetes mellitus with unspecified complications (ICD-10 - E11.8) Lorin is 74 years old pleasant lady with DM type II, hyperlipidemia, hypertension, acid reflux, mild intermittent asthma is here for follow-up. Plan is as follows. Seborrheic capitis. She will use ketoconazole shampoo 2-4 times a week and she is also given referral to dermatology DM type II. Her last A1c was 7 which is within recommended range. She is on Ozempic 0.25 mg along with metformin 1000 mg twice a day. She is on statins. She is seeing level vial sealer earlier this year. Foot care discussed and referral to podiatry. Hypertension/hyper lipidemia. Blood pressure well controlled on HCTZ 25 mg daily along with atorvastatin 10 mg daily and last lipid panel was within reasonable limits Acid reflux. Continue on Protonix 20 mg daily and she is on sucralfate 1 g twice a day Mild intermittent asthma. Well controlled on the controlled inhaler as needed. EKG is normal sinus rhythm at 63 bpm with no acute ST or T wave changes, no bundle branch blocks, normal intervals She is up to date on a specific screening. She is full code and her daughter Mayela Watson is her healthcare proxy.MOLST form discussed with the patient 03/11/2025 Seborrhea capitis (ICD-10 - L21.0) Lorin is 74 years old pleasant lady with DM type II, hyperlipidemia, hypertension, acid reflux, mild intermittent asthma is here for follow-up. Plan is as follows. Seborrheic capitis. She will use ketoconazole shampoo 2-4 times a week and she is also given referral to dermatology DM type II. Her last A1c was 7 which is within recommended range. She is on Ozempic 0.25 mg along with metformin 1000 mg twice a day. She is on statins. She is seeing level vial sealer earlier this year. Foot care discussed and referral to podiatry. Hypertension/hyper lipidemia. Blood pressure well controlled on HCTZ 25 mg daily along with atorvastatin 10 mg daily and last lipid panel was within reasonable limits Acid reflux. Continue on Protonix 20 mg daily and she is on sucralfate 1 g twice a day Mild intermittent asthma. Well controlled on the controlled inhaler as needed. EKG is normal sinus rhythm at 63 bpm with no acute ST or T wave changes, no bundle branch blocks, normal intervals She is up to date on a specific screening. She is full code and her daughter Mayela Watson is her healthcare proxy.MOLST form discussed with the patient 03/18/2025 Seborrhea capitis (ICD-10 - L21.0) Lorin is 74 years old pleasant lady with DM type II, hyperlipidemia, hypertension, acid reflux, mild intermittent asthma, seborrheic capitis and complained of pain and a small cyst palmar surface left fifth finger. Plan is as follows. Synovial/mucoid cyst. Take ibuprofen/Tylenol, ice to assist and referral to surgery for incision and drainage because it is painful. Seborrheic capitis. She will use ketoconazole shampoo 2-4 times a week and she is also given referral to dermatology DM type II. Her last A1c was 7 which is within recommended range. She is on Ozempic 0.25 mg along with metformin 1000 mg twice a day. She is on statins. She is seeing level vial sealer earlier this year. Foot care discussed and referral to podiatry. Hypertension/hyper lipidemia. Blood pressure well controlled on HCTZ 25 mg daily along with atorvastatin 10 mg daily and last lipid panel was within reasonable limits Acid reflux. Continue on Protonix 20 mg daily and she is on sucralfate 1 g twice a day Mild intermittent asthma. Well controlled on the controlled inhaler as needed. EKG is normal sinus rhythm at 63 bpm with no acute ST or T wave changes, no bundle branch blocks, normal intervals She is up to date on a specific screening. She is full code and her daughter Mayela Watson is her healthcare proxy.MOLST form discussed with the patient 03/18/2025 Sebaceous cyst (ICD-10 - L72.3) Lorin is 74 years old pleasant lady with DM type II, hyperlipidemia, hypertension, acid reflux, mild intermittent asthma, seborrheic capitis and complained of pain and a small cyst palmar surface left fifth finger. Plan is as follows. Synovial/mucoid cyst. Take ibuprofen/Tylenol, ice to assist and referral to surgery for incision and drainage because it is painful. Seborrheic capitis. She will use ketoconazole shampoo 2-4 times a week and she is also given referral to dermatology DM type II. Her last A1c was 7 which is within recommended range. She is on Ozempic 0.25 mg along with metformin 1000 mg twice a day. She is on statins. She is seeing level vial sealer earlier this year. Foot care discussed and referral to podiatry. Hypertension/hyper lipidemia. Blood pressure well controlled on HCTZ 25 mg daily along with atorvastatin 10 mg daily and last lipid panel was within reasonable limits Acid reflux. Continue on Protonix 20 mg daily and she is on sucralfate 1 g twice a day Mild intermittent asthma. Well controlled on the controlled inhaler as needed. EKG is normal sinus rhythm at 63 bpm with no acute ST or T wave changes, no bundle branch blocks, normal intervals She is up to date on a specific screening. She is full code and her daughter Mayela Watson is her healthcare proxy.MOLST form discussed with the patient 04/22/2025 Cough (ICD-10 - R05.9) Ms. Hightower is a 74-year-old lady with DM type II, hypertension, hyperlipidemia, acid reflux and history of hallucinations, Sickle cell trait and alpha thalassemia trait, seborrheic capitis Is here today for recent ER discharge from [facility]. Patient was seen consecutivelyAt the ER for symptoms of coughing. Plan as follows Cough. She was recently seen at [facility] and [facility] with x-ray negative for cardiopulmonary process. She was treated with 2 rounds of antibiotic and steroid and she is currently on a steroid taper without significant improvement she has also been taken albuterol as needed every 4-6 hours. I will start patient on inhaled corticosteroid for maintenance, a sample is given in the office today. Proper usage has been discussed and discussed possible side effects and with patient to gargle with water after using an inhaler to avoid candidiasis. I will also get a CAT scan of the chest. We will also obtain the PFTs as there has been a conflicted history between asthma and COPD but has never been confirmed. We will also refer patient to pulmonary. Will follow up in 4 weeks to ensure improvements. Hypertension. It is noted that even at the ER her blood pressure was elevated and today in office systolic is elevated could be secondary to the 2 rounds of prednisone and currently she is still on the prednisone with taper. As for now continue oon the same medication. Advised reducing salt intake and weight loss and will follow up in 4 weeks if blood pressure is still elevated at that time then we can consider adding another medication into the regimen. General concerns have been discussed I have rendered the services for this patient under direct supervision of Dr. Reyes, who did not see the patient but was available upon request Content of this note has been dictated using voice recognition software. Despite multiple revisions, Errors may persist 05/20/2025 Acute gastritis without bleeding (ICD-10 - K29.00) Ms. Hightower is a 74-year-old lady with DM type II, hypertension, hyperlipidemia, acid reflux and history of hallucinations, Sickle cell trait and alpha thalassemia trait, seborrheic capitis Is here today for Multiple chief complaints. Plan as follows Acute gastritis without bleeding of the stomach and esophagus. I have discontinued prior regimen and we started patient on Esomperazole and Mylanta per GI recommendation and patient is to follow up with her specialist. Advised on avoiding triggers and NSAIDs. Bilateral carpal tunnel syndrome. Negative Tinel's test on positive Phalen test. Most likely carpal tunnel syndrome given the presentation of the symptoms along with the findings on exam. However we will still proceed with the nerve conduction study in the meantime I have advised patient on considering a wrist brace for support and elevate the hands and the wrist with pillows to reduce swelling and pressure. Dysuria. Ongoing symptoms for the past month. Denies fever, chills, blood in the urine. Physical examination is unremarkable for CVA tenderness. UA in office does show mild leukocytes however otherwise it is normal. We will send the urine for confirmation however given white discharge, vaginal pruritis and dysuria could be possibly yeast infection especially with a history of type 2 diabetes which increase the risk, will start patient on fluconazole 1 tablet. Advised on increasing hydration, avoid douching and using harsh products, start wearing breathable clothing and she can also consider taking probiotics as well. Type 2 diabetes. Previous A1c 7.0. She is currently on metformin. She does follow with level vial sealer on a regular basis. Foot care discussed. We will recheck A1c given her symptoms of increased urination as well. It is also noted that her previous LDL is 104, we will recheck it again as a goal to be below 70 based on the results we will further adjust her medications. Diet modifications recommended Screening blood work before next appointment Content of this note has been dictated using voice recognition software. Despite multiple revisions, Errors may persist General concerns have been discussed I have rendered the services for this patient under direct supervision of Dr. Reyes, who did not see the patient but was available upon request 05/20/2025 Bilateral carpal tunnel syndrome (ICD-10 - G56.03) Ms. Hightower is a 74-year-old lady with DM type II, hypertension, hyperlipidemia, acid reflux and history of hallucinations, Sickle cell trait and alpha thalassemia trait, seborrheic capitis Is here today for Multiple chief complaints. Plan as follows Acute gastritis without bleeding of the stomach and esophagus. I have discontinued prior regimen and we started patient on Esomperazole and Mylanta per GI recommendation and patient is to follow up with her specialist. Advised on avoiding triggers and NSAIDs. Bilateral carpal tunnel syndrome. Negative Tinel's test on positive Phalen test. Most likely carpal tunnel syndrome given the presentation of the symptoms along with the findings on exam. However we will still proceed with the nerve conduction study in the meantime I have advised patient on considering a wrist brace for support and elevate the hands and the wrist with pillows to reduce swelling and pressure. Dysuria. Ongoing symptoms for the past month. Denies fever, chills, blood in the urine. Physical examination is unremarkable for CVA tenderness. UA in office does show mild leukocytes however otherwise it is normal. We will send the urine for confirmation however given white discharge, vaginal pruritis and dysuria could be possibly yeast infection especially with a history of type 2 diabetes which increase the risk, will start patient on fluconazole 1 tablet. Advised on increasing hydration, avoid douching and using harsh products, start wearing breathable clothing and she can also consider taking probiotics as well. Type 2 diabetes. Previous A1c 7.0. She is currently on metformin. She does follow with level vial sealer on a regular basis. Foot care discussed. We will recheck A1c given her symptoms of increased urination as well. It is also noted that her previous LDL is 104, we will recheck it again as a goal to be below 70 based on the results we will further adjust her medications. Diet modifications recommended Screening blood work before next appointment Content of this note has been dictated using voice recognition software. Despite multiple revisions, Errors may persist General concerns have been discussed I have rendered the services for this patient under direct supervision of Dr. Reyes, who did not see the patient but was available upon request 07/30/2024 Essential (primary) hypertension (ICD-10 - I10) Mrs. Hightower is 73 years old female with hypertension, asthma, seasonal allergies, hyperlipidemia, type 2 diabetes mellitus here for BP follow up. Plan is as follows: Hypertension. -Her blood pressure is running is well controlled today. Cut back on sodium intake. Advised appropriate hydration, cardio exercises and weight loss. Continue current regimen. Pruritus: - On going scalp pruritus for the past 2 months. PE is unremarkable for scabies/lice infestations. No signs of dermatitis. Some dandruff is noted. Advised patient on changing her shampoo. I have rendered the services for this patient under direct supervision of Dr. Reyes, who did not see the patient but was available upon request 12/22/2024 Other bursal cyst, unspecified hand (ICD-10 - M71.349) Mrs. Hightower is 74 years old female with hypertension, asthma, seasonal allergies, hyperlipidemia, type 2 diabetes mellitus here for melasma, she states that she would like a referral to dermatology she also endorses myxoid cyst on the left 5th digit. Plan as follows: Myxoid cyst: - Referred patient to Hand surgeon Melasma: - She has been referred to Dermatology before, she did not recieve a call yet. Department information has been given as referral has been made sent to [facility] dermatology. I have rendered the services for this patient under direct supervision of Dr. Reyes, who did not see the patient but was available upon request 12/15/2024 Folliculitis (ICD-10 - L73.9) Mrs. Hightower is 74 years old female with hypertension, asthma, seasonal allergies, hyperlipidemia, type 2 diabetes mellitus here for burning sensation that started 4 days ago.She has been out of refills. She also states that she has noticed a cyst in the pelvic area. Plan as follows: Abdominal pain: - Admits to GERD with bloating, gnawing sensation right after meal. She only takes Ibuprofen as needed for shoulder pain. PE is remarkable for tenderness to palpate epigastric area. Resumed patient back on pantoprazole 20mg also added sucralfate as her sxs are persistent with gastritis/ulcer. Check for Hpylori and referred to GI. If no improvement then we will consider increasing PPI in 4 weeks. Folliculitis: - infected small folliculitis is noted in the pelvic area. Started patient on doxycycline. She can also use Neosporin warm compresses. Refilled meds General concerns have been discussed I have rendered the services for this patient under direct supervision of Dr. Reyes, who did not see the patient but was available upon request 12/15/2024 Abdominal bloating (ICD-10 - R14.0) Mrs. Hightower is 74 years old female with hypertension, asthma, seasonal allergies, hyperlipidemia, type 2 diabetes mellitus here for burning sensation that started 4 days ago.She has been out of refills. She also states that she has noticed a cyst in the pelvic area. Plan as follows: Abdominal pain: - Admits to GERD with bloating, gnawing sensation right after meal. She only takes Ibuprofen as needed for shoulder pain. PE is remarkable for tenderness to palpate epigastric area. Resumed patient back on pantoprazole 20mg also added sucralfate as her sxs are persistent with gastritis/ulcer. Check for Hpylori and referred to GI. If no improvement then we will consider increasing PPI in 4 weeks. Folliculitis: - infected small folliculitis is noted in the pelvic area. Started patient on doxycycline. She can also use Neosporin warm compresses. Refilled meds General concerns have been discussed I have rendered the services for this patient under direct supervision of Dr. Reyes, who did not see the patient but was available upon request 12/15/2024 Mild intermittent asthma, uncomplicated (ICD-10 - J45.20) Mrs. Hightower is 74 years old female with hypertension, asthma, seasonal allergies, hyperlipidemia, type 2 diabetes mellitus here for burning sensation that started 4 days ago.She has been out of refills. She also states that she has noticed a cyst in the pelvic area. Plan as follows: Abdominal pain: - Admits to GERD with bloating, gnawing sensation right after meal. She only takes Ibuprofen as needed for shoulder pain. PE is remarkable for tenderness to palpate epigastric area. Resumed patient back on pantoprazole 20mg also added sucralfate as her sxs are persistent with gastritis/ulcer. Check for Hpylori and referred to GI. If no improvement then we will consider increasing PPI in 4 weeks. Folliculitis: - infected small folliculitis is noted in the pelvic area. Started patient on doxycycline. She can also use Neosporin warm compresses. Refilled meds General concerns have been discussed I have rendered the services for this patient under direct supervision of Dr. Reyes, who did not see the patient but was available upon request 07/30/2024 Pruritus, unspecified (ICD-10 - L29.9) Mrs. Hightower is 73 years old female with hypertension, asthma, seasonal allergies, hyperlipidemia, type 2 diabetes mellitus here for BP follow up. Plan is as follows: Hypertension. -Her blood pressure is running is well controlled today. Cut back on sodium intake. Advised appropriate hydration, cardio exercises and weight loss. Continue current regimen. Pruritus: - On going scalp pruritus for the past 2 months. PE is unremarkable for scabies/lice infestations. No signs of dermatitis. Some dandruff is noted. Advised patient on changing her shampoo. I have rendered the services for this patient under direct supervision of Dr. Reyes, who did not see the patient but was available upon request 05/20/2025 Dysuria (ICD-10 - R30.0) Ms. Hightower is a 74-year-old lady with DM type II, hypertension, hyperlipidemia, acid reflux and history of hallucinations, Sickle cell trait and alpha thalassemia trait, seborrheic capitis Is here today for Multiple chief complaints. Plan as follows Acute gastritis without bleeding of the stomach and esophagus. I have discontinued prior regimen and we started patient on Esomperazole and Mylanta per GI recommendation and patient is to follow up with her specialist. Advised on avoiding triggers and NSAIDs. Bilateral carpal tunnel syndrome. Negative Tinel's test on positive Phalen test. Most likely carpal tunnel syndrome given the presentation of the symptoms along with the findings on exam. However we will still proceed with the nerve conduction study in the meantime I have advised patient on considering a wrist brace for support and elevate the hands and the wrist with pillows to reduce swelling and pressure. Dysuria. Ongoing symptoms for the past month. Denies fever, chills, blood in the urine. Physical examination is unremarkable for CVA tenderness. UA in office does show mild leukocytes however otherwise it is normal. We will send the urine for confirmation however given white discharge, vaginal pruritis and dysuria could be possibly yeast infection especially with a history of type 2 diabetes which increase the risk, will start patient on fluconazole 1 tablet. Advised on increasing hydration, avoid douching and using harsh products, start wearing breathable clothing and she can also consider taking probiotics as well. Type 2 diabetes. Previous A1c 7.0. She is currently on metformin. She does follow with level vial sealer on a regular basis. Foot care discussed. We will recheck A1c given her symptoms of increased urination as well. It is also noted that her previous LDL is 104, we will recheck it again as a goal to be below 70 based on the results we will further adjust her medications. Diet modifications recommended Screening blood work before next appointment Content of this note has been dictated using voice recognition software. Despite multiple revisions, Errors may persist General concerns have been discussed I have rendered the services for this patient under direct supervision of Dr. Reyes, who did not see the patient but was available upon request 04/22/2025 Essential (primary) hypertension (ICD-10 - I10) Ms. Hightower is a 74-year-old lady with DM type II, hypertension, hyperlipidemia, acid reflux and history of hallucinations, Sickle cell trait and alpha thalassemia trait, seborrheic capitis Is here today for recent ER discharge from [facility]. Patient was seen consecutivelyAt the ER for symptoms of coughing. Plan as follows Cough. She was recently seen at [facility] with x-ray negative for cardiopulmonary process. She was treated with 2 rounds of antibiotic and steroid and she is currently on a steroid taper without significant improvement she has also been taken albuterol as needed every 4-6 hours. I will start patient on inhaled corticosteroid for maintenance, a sample is given in the office today. Proper usage has been discussed and discussed possible side effects and with patient to gargle with water after using an inhaler to avoid candidiasis. I will also get a CAT scan of the chest. We will also obtain the PFTs as there has been a conflicted history between asthma and COPD but has never been confirmed. We will also refer patient to pulmonary. Will follow up in 4 weeks to ensure improvements. Hypertension. It is noted that even at the ER her blood pressure was elevated and today in office systolic is elevated could be secondary to the 2 rounds of prednisone and currently she is still on the prednisone with taper. As for now continue oon the same medication. Advised reducing salt intake and weight loss and will follow up in 4 weeks if blood pressure is still elevated at that time then we can consider adding another medication into the regimen. General concerns have been discussed I have rendered the services for this patient under direct supervision of Dr. Reyes, who did not see the patient but was available upon request Content of this note has been dictated using voice recognition software. Despite multiple revisions, Errors may persist 03/18/2025 Type 2 diabetes mellitus with unspecified complications (ICD-10 - E11.8) Lorin is 74 years old pleasant lady with DM type II, hyperlipidemia, hypertension, acid reflux, mild intermittent asthma, seborrheic capitis and complained of pain and a small cyst palmar surface left fifth finger. Plan is as follows. Synovial/mucoid cyst. Take ibuprofen/Tylenol, ice to assist and referral to surgery for incision and drainage because it is painful. Seborrheic capitis. She will use ketoconazole shampoo 2-4 times a week and she is also given referral to dermatology DM type II. Her last A1c was 7 which is within recommended range. She is on Ozempic 0.25 mg along with metformin 1000 mg twice a day. She is on statins. She is seeing level vial sealer earlier this year. Foot care discussed and referral to podiatry. Hypertension/hyper lipidemia. Blood pressure well controlled on HCTZ 25 mg daily along with atorvastatin 10 mg daily and last lipid panel was within reasonable limits Acid reflux. Continue on Protonix 20 mg daily and she is on sucralfate 1 g twice a day Mild intermittent asthma. Well controlled on the controlled inhaler as needed. EKG is normal sinus rhythm at 63 bpm with no acute ST or T wave changes, no bundle branch blocks, normal intervals She is up to date on a specific screening. She is full code and her daughter Mayela Watson is her healthcare proxy.MOLST form discussed with the patient 03/11/2025 Essential (primary) hypertension (ICD-10 - I10) Lorin is 74 years old pleasant lady with DM type II, hyperlipidemia, hypertension, acid reflux, mild intermittent asthma is here for follow-up. Plan is as follows. Seborrheic capitis. She will use ketoconazole shampoo 2-4 times a week and she is also given referral to dermatology DM type II. Her last A1c was 7 which is within recommended range. She is on Ozempic 0.25 mg along with metformin 1000 mg twice a day. She is on statins. She is seeing level vial sealer earlier this year. Foot care discussed and referral to podiatry. Hypertension/hyper lipidemia. Blood pressure well controlled on HCTZ 25 mg daily along with atorvastatin 10 mg daily and last lipid panel was within reasonable limits Acid reflux. Continue on Protonix 20 mg daily and she is on sucralfate 1 g twice a day Mild intermittent asthma. Well controlled on the controlled inhaler as needed. EKG is normal sinus rhythm at 63 bpm with no acute ST or T wave changes, no bundle branch blocks, normal intervals She is up to date on a specific screening. She is full code and her daughter Mayela Watson is her healthcare proxy.MOLST form discussed with the patient 09/10/2024 Pain in left knee (ICD-10 - M25.562) Mrs. Hightower is 73 years old female with hypertension, asthma, seasonal allergies, hyperlipidemia, type 2 diabetes mellitus here for follow-up after she had a mechanical fall that happened two day ago as she was going down the busbut there was a malfunction in the stairs. ER workup is negative for abnormalities. Plan as follows: Mechanical fall Pain in the left shoulder/pain in the left knee - I will start patient on oxycodone for pain until she sees Physical therapy. Referred patient to PT. Advised on taking Tylenol as needed she can also use compressions. HTN: - Blood pressure is elevated. She did not take her medication today. We will check BP in one week.Advised on reducing salt intake, hydration and medication compliance.We will check BP. I have rendered the services for this patient under direct supervision of Dr. Reyes, who did not see the patient but was available upon request 01/08/2025 Essential (primary) hypertension (ICD-10 - I10) Lorin is 74 years old pleasant lady with DM type II, hyperlipidemia, hypertension, acid reflux, mild intermittent asthma is here for annual physical. Plan is as follows DM type II. Her last A1c was 7 which is within recommended range. She is on Ozempic 0.25 mg along with metformin 1000 mg twice a day. She is on statins. She is seeing level vial sealer earlier this year. Foot care discussed and referral to podiatry. Hypertension/hyper lipidemia. Blood pressure well controlled on HCTZ 25 mg daily along with atorvastatin 10 mg daily and last lipid panel was within reasonable limits Acid reflux. Continue on Protonix 20 mg daily and she is on sucralfate 1 g twice a day Mild intermittent asthma. Well controlled on the controlled inhaler as needed. EKG is normal sinus rhythm at 63 bpm with no acute [address] or T wave changes, no bundle branch blocks, normal intervals She is up to date on a specific screening. She is full code and her daughter Mayela Watson is her healthcare proxy.MOLST form discussed with the patient 07/16/2024 Hyperlipidemia, unspecified (ICD-10 - E78.5) Mrs. Hightower is 73 years old female with hypertension, asthma, seasonal allergies, hyperlipidemia, type 2 diabetes mellitus here for follow up. Plan is as follows: Type II diabetes mellitus. She checks her blood sugar at home and denies hypoglycemic and hyperglycemic episodes. She is on right medications. She has seen an level vial sealer for the past year. Foot care discussed. check A1c. Hypertension. Her blood pressure is running high in the office today. She did not take her blood pressure pill this morning. Cut back on sodium intake. Advised appropriate hydration, cardio exercises and weight loss. Continue current regimen. Hyperlipidemia. Continue Atorvastatin 10 MG once a day. GERD. Stable on Pantoprazole 20 MG once a day. Blood work reviewed with patient and questions answered. Screening blood work before next appointment. General health concerns discussed with patient. Scribe services used to formulate this note under HIPAA compliance and under [place] law mandated for scribe services. Patient aware of service. Verbal consent and written consent taken from the patient. Patient understands and verbalizes understanding of the scribes services and all questions answered regarding scribes services. Patient agrees to use of scribes services. 01/08/2025 Hyperlipidemia, unspecified (ICD-10 - E78.5) Lorin is 74 years old pleasant lady with DM type II, hyperlipidemia, hypertension, acid reflux, mild intermittent asthma is here for annual physical. Plan is as follows DM type II. Her last A1c was 7 which is within recommended range. She is on Ozempic 0.25 mg along with metformin 1000 mg twice a day. She is on statins. She is seeing level vial sealer earlier this year. Foot care discussed and referral to podiatry. Hypertension/hyper lipidemia. Blood pressure well controlled on HCTZ 25 mg daily along with atorvastatin 10 mg daily and last lipid panel was within reasonable limits Acid reflux. Continue on Protonix 20 mg daily and she is on sucralfate 1 g twice a day Mild intermittent asthma. Well controlled on the controlled inhaler as needed. EKG is normal sinus rhythm at [address] bpm with no acute [address] or T wave changes, no bundle branch blocks, normal intervals She is up to date on a specific screening. She is full code and her daughter Mayela Watson is her healthcare proxy.MOLST form discussed with the patient 07/16/2024 Gastro-esophageal reflux disease without esophagitis (ICD-10 - K21.9) Mrs. Hightower is 73 years old female with hypertension, asthma, seasonal allergies, hyperlipidemia, type 2 diabetes mellitus here for follow up. Plan is as follows: Type II diabetes mellitus. She checks her blood sugar at home and denies hypoglycemic and hyperglycemic episodes. She is on right medications. She has seen an level vial sealer for the past year. Foot care discussed. check A1c. Hypertension. Her blood pressure is running high in the office today. She did not take her blood pressure pill this morning. Cut back on sodium intake. Advised appropriate hydration, cardio exercises and weight loss. Continue current regimen. Hyperlipidemia. Continue Atorvastatin 10 MG once a day. GERD. Stable on Pantoprazole 20 MG once a day. Blood work reviewed with patient and questions answered. Screening blood work before next appointment. General health concerns discussed with patient. Scribe services used to formulate this note under HIPAA compliance and under [place] law mandated for scribe services. Patient aware of service. Verbal consent and written consent taken from the patient. Patient understands and verbalizes understanding of the scribes services and all questions answered regarding scribes services. Patient agrees to use of scribes services. 09/10/2024 Essential (primary) hypertension (ICD-10 - I10) Mrs. Hightower is 73 years old female with hypertension, asthma, seasonal allergies, hyperlipidemia, type 2 diabetes mellitus here for follow-up after she had a mechanical fall that happened two day ago as she was going down the busbut there was a malfunction in the stairs. ER workup is negative for abnormalities. Plan as follows: Mechanical fall Pain in the left shoulder/pain in the left knee - I will start patient on oxycodone for pain until she sees Physical therapy. Referred patient to PT. Advised on taking Tylenol as needed she can also use compressions. HTN: - Blood pressure is elevated. She did not take her medication today. We will check BP in one week.Advised on reducing salt intake, hydration and medication compliance.We will check BP. I have rendered the services for this patient under direct supervision of Dr. Reyes, who did not see the patient but was available upon request 03/11/2025 Hyperlipidemia, unspecified (ICD-10 - E78.5) Lorin is 74 years old pleasant lady with DM type II, hyperlipidemia, hypertension, acid reflux, mild intermittent asthma is here for follow-up. Plan is as follows. Seborrheic capitis. She will use ketoconazole shampoo 2-4 times a week and she is also given referral to dermatology DM type II. Her last A1c was 7 which is within recommended range. She is on Ozempic 0.25 mg along with metformin 1000 mg twice a day. She is on statins. She is seeing level vial sealer earlier this year. Foot care discussed and referral to podiatry. Hypertension/hyper lipidemia. Blood pressure well controlled on HCTZ 25 mg daily along with atorvastatin 10 mg daily and last lipid panel was within reasonable limits Acid reflux. Continue on Protonix 20 mg daily and she is on sucralfate 1 g twice a day Mild intermittent asthma. Well controlled on the controlled inhaler as needed. EKG is normal sinus rhythm at [address] bpm with no acute [address] or T wave changes, no bundle branch blocks, normal intervals She is up to date on a specific screening. She is full code and her daughter Mayela Watson is her healthcare proxy.MOLST form discussed with the patient 03/18/2025 Essential (primary) hypertension (ICD-10 - I10) Lorin is 74 years old pleasant lady with DM type II, hyperlipidemia, hypertension, acid reflux, mild intermittent asthma, seborrheic capitis and complained of pain and a small cyst palmar surface left fifth finger. Plan is as follows. Synovial/mucoid cyst. Take ibuprofen/Tylenol, ice to assist and referral to surgery for incision and drainage because it is painful. Seborrheic capitis. She will use ketoconazole shampoo 2-4 times a week and she is also given referral to dermatology DM type II. Her last A1c was 7 which is within recommended range. She is on Ozempic 0.25 mg along with metformin 1000 mg twice a day. She is on statins. She is seeing level vial sealer earlier this year. Foot care discussed and referral to podiatry. Hypertension/hyper lipidemia. Blood pressure well controlled on HCTZ 25 mg daily along with atorvastatin 10 mg daily and last lipid panel was within reasonable limits Acid reflux. Continue on Protonix 20 mg daily and she is on sucralfate 1 g twice a day Mild intermittent asthma. Well controlled on the controlled inhaler as needed. EKG is normal sinus rhythm at [address] bpm with no acute [address] or T wave changes, no bundle branch blocks, normal intervals She is up to date on a specific screening. She is full code and her daughter Mayela Watson is her healthcare proxy.MOLST form discussed with the patient 05/20/2025 Type 2 diabetes mellitus with unspecified complications (ICD-10 - E11.8) Ms. Hightower is a 74-year-old lady with DM type II, hypertension, hyperlipidemia, acid reflux and history of hallucinations, Sickle cell trait and alpha thalassemia trait, seborrheic capitis Is here today for Multiple chief complaints. Plan as follows Acute gastritis without bleeding of the stomach and esophagus. I have discontinued prior regimen and we started patient on Esomperazole and Mylanta per GI recommendation and patient is to follow up with her specialist. Advised on avoiding triggers and NSAIDs. Bilateral carpal tunnel syndrome. Negative Tinel's test on positive Phalen test. Most likely carpal tunnel syndrome given the presentation of the symptoms along with the findings on exam. However we will still proceed with the nerve conduction study in the meantime I have advised patient on considering a wrist brace for support and elevate the hands and the wrist with pillows to reduce swelling and pressure. Dysuria. Ongoing symptoms for the past month. Denies fever, chills, blood in the urine. Physical examination is unremarkable for CVA tenderness. UA in office does show mild leukocytes however otherwise it is normal. We will send the urine for confirmation however given white discharge, vaginal pruritis and dysuria could be possibly yeast infection especially with a history of type 2 diabetes which increase the risk, will start patient on fluconazole 1 tablet. Advised on increasing hydration, avoid douching and using harsh products, start wearing breathable clothing and she can also consider taking probiotics as well. Type 2 diabetes. Previous A1c 7.0. She is currently on metformin. She does follow with level vial sealer on a regular basis. Foot care discussed. We will recheck A1c given her symptoms of increased urination as well. It is also noted that her previous LDL is 104, we will recheck it again as a goal to be below 70 based on the results we will further adjust her medications. Diet modifications recommended Screening blood work before next appointment Content of this note has been dictated using voice recognition software. Despite multiple revisions, Errors may persist General concerns have been discussed I have rendered the services for this patient under direct supervision of Dr. Reyes, who did not see the patient but was available upon request 12/15/2024 Gastro-esophageal reflux disease without esophagitis (ICD-10 - K21.9) Mrs. Hightower is 74 years old female with hypertension, asthma, seasonal allergies, hyperlipidemia, type 2 diabetes mellitus here for burning sensation that started 4 days ago.She has been out of refills. She also states that she has noticed a cyst in the pelvic area. Plan as follows: Abdominal pain: - Admits to GERD with bloating, gnawing sensation right after meal. She only takes Ibuprofen as needed for shoulder pain. PE is remarkable for tenderness to palpate epigastric area. Resumed patient back on pantoprazole 20mg also added sucralfate as her sxs are persistent with gastritis/ulcer. Check for Hpylori and referred to GI. If no improvement then we will consider increasing PPI in 4 weeks. Folliculitis: - infected small folliculitis is noted in the pelvic area. Started patient on doxycycline. She can also use Neosporin warm compresses. Refilled meds General concerns have been discussed I have rendered the services for this patient under direct supervision of Dr. Reyes, who did not see the patient but was available upon request 03/18/2025 Hyperlipidemia, unspecified (ICD-10 - E78.5) Lorin is 74 years old pleasant lady with DM type II, hyperlipidemia, hypertension, acid reflux, mild intermittent asthma, seborrheic capitis and complained of pain and a small cyst palmar surface left fifth finger. Plan is as follows. Synovial/mucoid cyst. Take ibuprofen/Tylenol, ice to assist and referral to surgery for incision and drainage because it is painful. Seborrheic capitis. She will use ketoconazole shampoo 2-4 times a week and she is also given referral to dermatology DM type II. Her last A1c was 7 which is within recommended range. She is on Ozempic 0.25 mg along with metformin 1000 mg twice a day. She is on statins. She is seeing level vial sealer earlier this year. Foot care discussed and referral to podiatry. Hypertension/hyper lipidemia. Blood pressure well controlled on HCTZ 25 mg daily along with atorvastatin 10 mg daily and last lipid panel was within reasonable limits Acid reflux. Continue on Protonix 20 mg daily and she is on sucralfate 1 g twice a day Mild intermittent asthma. Well controlled on the controlled inhaler as needed. EKG is normal sinus rhythm at 63 bpm with no acute ST or T wave changes, no bundle branch blocks, normal intervals She is up to date on a specific screening. She is full code and her daughter Mayela Watson is her healthcare proxy.MOLST form discussed with the patient 03/11/2025 Mild intermittent asthma, uncomplicated (ICD-10 - J45.20) Lorin is 74 years old pleasant lady with DM type II, hyperlipidemia, hypertension, acid reflux, mild intermittent asthma is here for follow-up. Plan is as follows. Seborrheic capitis. She will use ketoconazole shampoo 2-4 times a week and she is also given referral to dermatology DM type II. Her last A1c was 7 which is within recommended range. She is on Ozempic 0.25 mg along with metformin 1000 mg twice a day. She is on statins. She is seeing level vial sealer earlier this year. Foot care discussed and referral to podiatry. Hypertension/hyper lipidemia. Blood pressure well controlled on HCTZ 25 mg daily along with atorvastatin 10 mg daily and last lipid panel was within reasonable limits Acid reflux. Continue on Protonix 20 mg daily and she is on sucralfate 1 g twice a day Mild intermittent asthma. Well controlled on the controlled inhaler as needed. EKG is normal sinus rhythm at 63 bpm with no acute [address] or T wave changes, no bundle branch blocks, normal intervals She is up to date on a specific screening. She is full code and her daughter Mayela Watson is her healthcare proxy.MOLST form discussed with the patient 01/08/2025 Mild intermittent asthma, uncomplicated (ICD-10 - J45.20) Lorin is 74 years old pleasant lady with DM type II, hyperlipidemia, hypertension, acid reflux, mild intermittent asthma is here for annual physical. Plan is as follows DM type II. Her last A1c was 7 which is within recommended range. She is on Ozempic 0.25 mg along with metformin 1000 mg twice a day. She is on statins. She is seeing level vial sealer earlier this year. Foot care discussed and referral to podiatry. Hypertension/hyper lipidemia. Blood pressure well controlled on HCTZ 25 mg daily along with atorvastatin 10 mg daily and last lipid panel was within reasonable limits Acid reflux. Continue on Protonix 20 mg daily and she is on sucralfate 1 g twice a day Mild intermittent asthma. Well controlled on the controlled inhaler as needed. EKG is normal sinus rhythm at [address] bpm with no acute ST or T wave changes, no bundle branch blocks, normal intervals She is up to date on a specific screening. She is full code and her daughter Mayela Watson is her healthcare proxy.MOLST form discussed with the patient 03/18/2025 Mild intermittent asthma, uncomplicated (ICD-10 - J45.20) Lorin is 74 years old pleasant lady with DM type II, hyperlipidemia, hypertension, acid reflux, mild intermittent asthma, seborrheic capitis and complained of pain and a small cyst palmar surface left fifth finger. Plan is as follows. Synovial/mucoid cyst. Take ibuprofen/Tylenol, ice to assist and referral to surgery for incision and drainage because it is painful. Seborrheic capitis. She will use ketoconazole shampoo 2-4 times a week and she is also given referral to dermatology DM type II. Her last A1c was 7 which is within recommended range. She is on Ozempic 0.25 mg along with metformin 1000 mg twice a day. She is on statins. She is seeing level vial sealer earlier this year. Foot care discussed and referral to podiatry. Hypertension/hyper lipidemia. Blood pressure well controlled on HCTZ 25 mg daily along with atorvastatin 10 mg daily and last lipid panel was within reasonable limits Acid reflux. Continue on Protonix 20 mg daily and she is on sucralfate 1 g twice a day Mild intermittent asthma. Well controlled on the controlled inhaler as needed. EKG is normal sinus rhythm at [address] bpm with no acute ST or T wave changes, no bundle branch blocks, normal intervals She is up to date on a specific screening. She is full code and her daughter Mayela Watson is her healthcare proxy.MOLST form discussed with the patient Plan Of Treatment Pending Test Test Name Order Date Ultrasound : Abdomen 12/31/2023 EMG/NCV ARMS 05/20/2025 PFT with DLCO 04/22/2025 MAMMOGRAM, SCREENING 01/08/2025 MAMMOGRAM, SCREENING 01/08/2024 Bone Density 01/08/2025 25OH VITAMIN D 08/21/2022 COMPREHENSIVE METABOLIC PANEL 08/10/2022 COMPREHENSIVE METABOLIC PANEL 08/21/2022 COMPREHENSIVE METABOLIC PANEL 11/01/2022 HEMOGLOBIN A1C WITH EST GLUCOSE 08/21/20 LIPID PANEL 08/21/2022 LIPID PANEL 08/10/2022 MICROALBUMIN, URINE 08/10/2022 MICROALBUMIN, URINE 08/21/2022 CT Chest WO 04/22/2025 Hgb A1c with eAG Estimation-[id number] 05/11 Next Appt Details Provider Name:ERICH REYES , 08/19/2025 10:30:00 AM, [address] [facility] [address] [facility] [address], [place], [address], Provider Name:JUNG A GUL , 01/14/2026 10:00:00 AM, [address] [facility] [facility] [address], [place], [address], Insurance Providers Payer Name Payer Address Payer Phone Subscriber Number Group Number Insured Name Patient Relationship to Insured Coverage Start Date Coverage End Date [employer] [address] [address] [place] [phone] [id number] Lorin Hightower Self - patient is the insured [employer] of [place] [address] [place] [phone] [id number] Lorin Hightower Self - patient is the insured Medical (General) History Medical History History ICD Code hypertension DM T 2 Diet control Asthma Seasonal Allergies headaches colon polyps 2021 Surgical History Surgery Date(Month/Year) appendectomy Left elbow fx
--- OUTSIDE RECORDS SUMMARY | 2025-06-03 10:03 | XMS_ITS | Clinical Summary ---
Author Organization [facility] Address [address] [place] [phone] Phone Care Team Providers Care Director Epidemiology Name Role Phone Leonardo Jennifer Fung MD Primary Care Provider [phone] Allergies Active Allergy Reactions Criticality Noted Date Comments Lisinopril Headache,Pain,Palpit ati ons,Other 09/08/2024 uncertaint o me if htis was [facility] bander hand as of [phone] ER note 01-03-2016 Naproxen Itching 09/08/2024 Medications sucralfate (CARAFATE) 1 gram tablet TAKE 1 TABLET BY MOUTH TWICE DAILY ON AN EMPTY STOMACH 5 Active Ozempic 0.25 mg or 0.5 mg (2 mg/3 mL) injection pen INJECT INTO THE SKIN ONCE WEEKLY 4 Active rosuvastatin (Crestor) 5 mg tablet Take 1 tablet (5 mg total) by mouth. 1 Active prednisoLONE acetate (PRED FORTE) 1 % ophthalmic suspension SHAKE LIQUID AND INSTILL 1 DROP IN BOTH EYES TWICE DAILY FOR 2 WEEKS THEN STOP 4 Active pantoprazole (PROTONIX) 20 mg EC tablet Take 1 tablet (20 mg total) by mouth 1 (one) time each day. 5 Active metFORMIN (GLUCOPHAGE) 1,000 mg tablet Take 1 tablet (1,000 mg total) by mouth 2 (two) times a day with meals. 4 Active losartan (COZAAR) 25 mg tablet Take 1 tablet (25 mg total) by mouth. 1 Active lancets (OneTouch Delica Plus Lancet) 33 gauge DIRECTED FOR BLOOD SUGAR DAILY 4 Active ibuprofen (ADVIL,MOTRIN) 600 mg tablet Take 1 tablet (600 mg total) by mouth every 6 (six) hours if needed. for pain 5 Active hydrOXYzine HCL (ATARAX) 25 mg tablet Take 1 tablet (25 mg total) by mouth 1 (one) time each day if needed. 4 Active hydroCHLOROthiaz humphrey (HYDRODIURIL) 25 mg tablet Take 1 tablet (25 mg total) by mouth 1 (one) time each day in the morning. Active fluticasone propionate (FLONASE) 50 mcg/actuation nasal spray SHAKE LIQUID AND USE 1 SPRAY IN EACH NOSTRIL TWICE DAILY EVERY DAY Active OneTouch Ultra2 Meter misc DIRECTED DAILY 4 Active Yorumla.comTouch Ultra Test test strip USE DIRECTED TO CHECK BLOOD SUGAR DAILY 4 Active atorvastatin (LIPITOR) 10 mg tablet Take 1 tablet (10 mg total) by mouth 1 (one) time each day. 4 Active albuterol HFA (PROAIR HFA ; PROVENTIL HFA ; VENTOLIN HFA) 90 mcg/actuation inhaler 1 puff every 4 (four) hours if needed. 5 Active aspirin 81 mg EC tablet Take 1 tablet (81 mg total) by mouth 1 (one) time each day. Active pantoprazole (PROTONIX) 40 mg EC tabletIndication s:Gastroesophage al reflux disease, unspecified whether esophagitis present Take 1 tablet (40 mg total) by mouth 2 (two) times a day. Do not crush, chew, or split. 180 each 3 5 01/22/20 26 Active Active Problems No known active problems Encounters Date Type Department Care Team Description 05/17/2025 12:03 PM EDT Anesthesia Event [facility] Endoscopy [address] [place] [phone] Roman Reardon DO 05/17/2025 11:05 AM EDT - 05/17/2025 11:59 PM EDT Hospital Encounter [facility] Endoscopy [address] [place] [phone] Delroy Poe DO Hard, Shannon, CRNA Walsh, Michael, DO Gastroesophageal reflux disease, unspecified whether esophagitis present Discharge Disposition: Home or Self Care 05/13/2025 11:30 AM EDT - 05/13/2025 11:59 PM EDT Hospital Encounter [facility] CT Scan [address] [place] [address] Cough, unspecified type Discharge Disposition: Home or Self Care 04/28/2025 Telephone Gastroenterology - [place] [address] [facility] 175 [facility] [address] [place] [phone] Delroy Poe DO special procedure 04/10/2025 1:28 PM EDT - 04/10/2025 6:[address] [facility] Emergency [address] [place] [phone] Cierra Sow MD Viral URI (Primary Dx) Discharge Disposition: Home or Self Care 04/09/2025 8:16 AM EDT Anesthesia Event [facility] Endoscopy [address] [place] [phone] Juanjo Monroe MD 04/08/2025 Telephone Gastroenterology - [place] [address] [facility] 175 [facility] [address] [place] [phone] Delroy Poe DO Special Procedure 03/26/2025 8:21 AM EDT Anesthesia Event [facility] Endoscopy [address] [place] [phone] Sunshine Harris MD 03/26/2025 7:39 AM EDT - 03/26/2025 11:59 PM EDT Hospital Encounter [facility] Endoscopy [address] [place] [phone] Delroy Poe DO Spencer, Mark A, MD Gastroesophageal reflux disease, unspecified whether esophagitis present Discharge Disposition: Home or Self Care from Last 3 Months Surgical History Surgery Date Site/Laterality Comments APPENDECTOMY ELBOW SURGERY Left Medical History Medical History Date Comments Diabetes ([facility] V24, [facility] V28) Hypertension Asthma Arthritis Hyperlipidemia GERD (gastroesophageal reflux disease) Social History Tobacco Use Types Packs/Day Years Used Date Smoking Tobacco: Former Cigarettes Smokeless Tobacco: Never Tobacco Cessation:Counseling Given: Not Answered Alcohol Use Standard Drinks/Week Comments Yes 0 (1 standard drink = 0.6 oz pur e alcohol) occ Interpersonal Safety Answer Date Record ed Physical Abuse 05/17/2025 Verbal Abuse 05/17/2025 Comments Unknown Sex and Gender Information Value Date Recorded Sex Assigned at Female 11/09/2024 11:46 AM EST Legal Sex Female 8:18 PM EST Gender Identity Female 11/09/2024 11:46 AM EST Sexual Orientation Straight 11/09/2024 11 :46 AM EST Obstetrics History Last Filed Vital Signs Vital Sign Reading Time Taken Comments Blood Pressure 133/72 05/17/2025 12:40 PM EDT Pulse 64 05/17/2025 12:40 PM EDT Temperature 37.2 C (98.9 F) 05/17/2025 12:20 PM EDT Respiratory Rate 15 05/17/2025 12:40 PM EDT Oxygen Saturation 98% 05/17/2025 12:40 PM EDT Inhaled Oxygen Concentration - - Weight 78.5 kg (173 lb) 05/17/2025 11:25 AM EDT Height 162.6 cm (5' 4 ) 05/17/2025 11:25 AM EDT Body Mass Index 29.7 05/17/2025 11:25 AM EDT Plan of Treatment Upcoming Encounters Date Type Department Care Team (Late st Contact Info) Description 07/28/2025 9:30 AM EDT Consult Orthopedic Surgery - [place] [address] [phone] Scooter Ashton, DPM 175 [facility] [place] [address] [place] [address] 07/30/2025 10:50 AM EDT Office Visit Gastroenterology - [address] [facility] [address] [phone] Renetta David PA [address] [phone] Health Maintenance Due Date Last Done Comments Breast Cancer Screening 1950 Diabetes: Annual Foot Exam 1960 Diabetes: Annual Retina Eye Exam 1960 RSV Immunization Adult Patients (1 - Risk 60-74 years 1-dose series) 2010 Zoster Vaccines (2 of 3) 04/16/2016 02/20/2016 Cholesterol Screening (Lipid Panel) 11/28/2023 Colorectal Cancer Screening: Colonoscopy 11/28/2023 Hepatitis C Screening 11/28/2023 Medicare Annual Wellness Visit 11/28/2023 Osteoporosis Screening (Bone Density Screening) 11/28/2023 Social Influencers of Health Screening 11/28/2023 COVID-19 Vaccine (3 - 2023-2 5 season) 2024 03/14/2021, 02/21/2021 Diabetes: Annual Urine Albumin-Creatinine Ratio (uACR) 09/09/2024 Diabetes: Blood Sugar Contro l Test (HGBA1C) 09/09/2024 Depression Screening 11/04/2024 Influenza Vaccine (#1) 2025 7, 08/05/2009 Diabetes: Annual GFR (Glomerular Filtration Rate) 04/10/2026 04/10/2025 Hypertension/CHF/CAD Annual BMP Blood Test 04/10/2026 04/10/2025 Falls Risk Assessment 05/17/2026 05/17/2025 DTaP,Tdap,and Td Vaccines (3 - Td or Tdap) 01/28/2027 01/28/2017, 04/16/2005 Pneumococcal Vaccine: 50+ Years Completed 02/05/2018, 01/28/2017 HIB Vaccines Aged Out No longer eligi ble based on patient's age to complete this topic HPV Vaccines Aged Out No longer eligi ble based on patient's age to complete this topic Hepatitis A Vaccines Aged Out No long er eligible based on patient's age to complete this topic Hepatitis B Vaccines Aged Out No long er eligible based on patient's age to complete this topic IPV Vaccines Aged Out No longer eligi ble based on patient's age to complete this topic MMR Vaccines Aged Out No longer eligi ble based on patient's age to complete this topic Meningococcal ACWY Vaccine Aged Out N o longer eligible based on patient's age to complete this topic Meningococcal B Vaccine Aged Out No l onger eligible based on patient's age to complete this topic RSV Immunization Patients Under 20 months Aged Out No longer eligible b ased on patient's age to complete this topic Varicella Vaccines Aged Out No longer eligible based on patient's age to complete this topic Procedures Procedure Name Priority Date/Time Associated Diagnosis Comments EGD Routine 05/17/2025 12:19 PM EDT Gastroesophageal reflux disease, unspecified whether esophagitis present TISSUE EXAM Routine 05/17/2025 12:13 PM EDT Gastroesophageal reflux disease, unspecified whether esophagitis present CT CHEST WO CONTRAST Routine 05/13/2025 12:20 PM EDT Cough, unspecified type ECG ANNOTATED 04/14/2025 TROPONIN I HIGH SENSITIVITY STAT 04/10/2025 2:46 PM EDT ECG 12-LEAD STAT 04/10/2025 2:33 PM EDT XR CHEST 2 VIEWS STAT 04/10/2025 1:54 PM EDT PROTHROMBIN TIME WITH INR STAT 04/10/2025 1:36 PM EDT [id number], RSV, FLU A AND B QUALITATIVE RT-PCR, INTERNAL LAB STAT 04/10/2025 1:25 PM EDT CBC WITH AUTO DIFFERENTIAL STAT 04/10/2025 1:21 PM EDT B-TYPE NATRIURETIC PEPTIDE STAT 04/10/2025 1:21 PM EDT MAGNESIUM STAT 04/10/2025 1:21 PM EDT LIPASE STAT 04/10/2025 1:21 PM EDT COMPREHENSIVE METABOLIC PANEL STAT 04/10/2025 1:21 PM EDT CBC AND DIFFERENTIAL STAT 04/10/2025 1:21 PM EDT TROPONIN I HIGH SENSITIVITY STAT 04/10/2025 1:21 PM EDT ECG 12-LEAD STAT 04/10/2025 1:15 PM EDT EGD Routine 03/26/2025 8:28 AM EDT Gastroesophageal reflux disease, unspecified whether esophagitis present from Last 3 Months Results * EGD Anesthesia - MAC; [facility] ENDOSCOPY (05/17/2025 12:19 PM EDT) Only the most recent of2 resultswithin the time period is included. Anatomical Region Laterality Modality Endoscopy 05/17/2025 12:0 0 PM EDT Impressions 05/17/2025 12:20 PM EDT - Z-line irregular, 36 cm from the incisors. Biopsied. WATS-3D brush biopsy specimens obtained. - Erosive gastropathy with stigmata of recent bleeding. Biopsied. - One gastric polyp. Resected and retrieved. - Normal examined duodenum. Recommendation: - Discharge patient to home. - Resume previous diet. - Continue present medications. - Await pathology results. - Increase PPI to BID. Narrative 05/17/2025 12:[address] [facility] GI Patient Name: Lorin Chin Procedure Date: 05/17/2025 12:00 PM Date of : 1950 Age: 74 Gender: Female Note Status: Finalized Attending MD: Delroy Poe DO, [id number] Procedure Date No Time: 05/17/2025 Procedure: Upper GI endoscopy Indications: Heartburn Providers: Delroy Poe DO Referring MD: Jennifer Patterson MD Medicines: Monitored Anesthesia Care Complications: No immediate complications. Estimated blood loss: Minimal. Estimated Blood Loss: Estimated blood loss was minimal. Procedure: Pre-Anesthesia Assessment: - - Prior to the procedure, a History and Physical was performed, and patient medications and allergies were reviewed. The patient is competent. The risks and benefits of the procedure and the sedation options and risks were discussed with the patient. All questions were answered and informed consent was obtained. Patient identification and proposed procedure were verified by the physician, the nurse, the anesthesiologist, the supply and distribution manager and the repair technician in the pre-procedure area in the endoscopy suite. Mental Status Examination: alert and oriented. Airway Examination: normal oropharyngeal airway and neck mobility. Respiratory Examination: clear to auscultation. CV Examination: normal. Prophylactic Antibiotics: The patient does not require prophylactic antibiotics. Prior Anticoagulants: The patient has taken no anticoagulant or antiplatelet agents. ASA Grade Assessment: II - A patient with mild systemic disease. After reviewing the risks and benefits, the patient was deemed in satisfactory condition to undergo the procedure. The anesthesia plan was to use monitored anesthesia care (MAC). Immediately prior to administration of medications, the patient was re-assessed for adequacy to receive sedatives. The heart rate, respiratory rate, oxygen saturations, blood pressure, adequacy of pulmonary ventilation, and response to care were monitored throughout the procedure. The physical status of the patient was re-assessed after the procedure. After obtaining informed consent, the endoscope was passed under direct vision. Throughout the procedure, the patient's blood pressure, pulse, and oxygen saturations were monitored continuously. The Olympus Gastroscope was introduced through the mouth, and advanced to the third part of duodenum. The upper GI endoscopy was accomplished with ease. The patient tolerated the procedure well. Findings: The Z-line was irregular and was found 36 cm from the incisors. Biopsies were taken with a cold forceps for histology. Wide Area Transepithelial Sampling (WATS-3D [place] Biopsy) was performed for histology and samples sent for Computer-Assisted 3-Dimensional analysis. Estimated blood loss was minimal. Multiple localized erosions with stigmata of recent bleeding were found in the entire examined stomach. Biopsies were taken with a cold forceps for histology. Estimated blood loss was minimal. One 9 mm sessile polyp with no stigmata of recent bleeding was found in the gastric antrum. The polyp was removed with a cold snare. Resection and retrieval were complete. Verification of patient identification for the specimen was done. Estimated blood loss was minimal. The examined duodenum was normal. Procedure Code(s): --- Professional --- 72192, Esophagogastroduodenoscopy, flexible, transoral; with removal of tumor(s), polyp(s), or other lesion(s) by snare technique 12581, 59, Esophagogastroduodenoscopy, flexible, transoral; with biopsy, single or multiple Diagnosis Code(s): --- Professional --- K22.89, Other specified disease of esophagus K92.2, Gastrointestinal hemorrhage, unspecified K31.7, Polyp of stomach and duodenum R12, Heartburn CPT copyright 2020 [employer]. All rights reserved. The codes documented in this report are preliminary and upon web press jogger review may be revised to meet current compliance requirements. DELROY Poe DO 05/17/2025 12:20:41 PM This report has been signed electronically.Delroy Poe DO Number of Addenda: 0 Note Initiated On: 05/17/2025 12:00 PM Scope In: Scope Out: Endoscopy Department at [facility] - [address] [place] [phone] Procedure Note Delroy Poe DO - 05/17/2025 [facility] GI Patient Name: Lorin Chin Procedure Date: 05/17/2025 12:00 PM Date of : 1950 Age: 74 Gender: Female Note Status: Finalized Attending MD: Delroy Poe DO, [id number] Procedure Date No Time: 05/17/2025 Procedure: Upper GI endoscopy Indications: Heartburn Providers: Delroy Poe DO Referring MD: Jennifer Patterson MD Medicines: Monitored Anesthesia Care Complications: No immediate complications. Estimated blood loss: Minimal. Estimated Blood Loss: Estimated blood loss was minimal. Procedure: Pre-Anesthesia Assessment: - - Prior to the procedure, a History and Physicalwas performed, and patient medications and allergieswere reviewed. The patient is competent. The risks and benefits of the procedure and the sedation optionsand risks were discussed with the patient. Allquestions were answered and informed consent was obtained. Patient identification and proposed procedure were verified by the physician, the nurse, the anesthesiologist, the supply and distribution manager and thetechnician in the pre-procedure area in the endoscopy suite. Mental Status Examination: alert and oriented.Airway Examination: normal oropharyngeal airway and neck mobility. Respiratory Examination: clear to auscultation. CV Examination: normal. Prophylactic Antibiotics: The patient does not requireprophylactic antibiotics. Prior Anticoagulants: The patient has taken no anticoagulant or antiplatelet agents. ASA Grade Assessment: II - A patient with mild systemic disease. After reviewing the risks and benefits,the patient was deemed in satisfactory condition to undergo the procedure. The anesthesia plan was touse monitored anesthesia care (MAC). Immediately priorto administration of medications, the patient was re-assessed for adequacy to receive sedatives. The heart rate, respiratory rate, oxygen saturations, blood pressure, adequacy of pulmonary ventilation,and response to care were monitored throughout the procedure. The physical status of the patient was re-assessed after the procedure. After obtaining informed consent, the endoscope was passed under direct vision. Throughout theprocedure, the patient's blood pressure, pulse, and oxygen saturations were monitored continuously. TheOlympus Gastroscope was introduced through the mouth, and advanced to the third part of duodenum. The upperGI endoscopy was accomplished with ease. The patient tolerated the procedure well. Findings: The Z-line was irregular and was found 36 cm fromthe incisors. Biopsies were taken with a cold forcepsfor histology. Wide Area Transepithelial Sampling(WATS-3D [place] Biopsy) was performed for histology andsamples sent for Computer-Assisted 3-Dimensional analysis. Estimated blood loss was minimal. Multiple localized erosions with stigmata of recent bleeding were found in the entire examined stomach. Biopsies were taken with a cold forceps forhistology. Estimated blood loss was minimal. One 9 mm sessile polyp with no stigmata of recent bleeding was found in the gastric antrum. The polyp was removed with a cold snare. Resection andretrieval were complete. Verification of patientidentification for the specimen was done. Estimated blood loss was minimal. The examined duodenum was normal. Procedure Code(s): --- Professional --- 36290, Esophagogastroduodenoscopy, flexible, transoral; with removal of tumor(s), polyp(s), or other lesion(s) by snare technique 25698, 59, Esophagogastroduodenoscopy, flexible, transoral; with biopsy, single or multiple Diagnosis Code(s): --- Professional --- K22.89, Other specified disease of esophagus K92.2, Gastrointestinal hemorrhage, unspecified K31.7, Polyp of stomach and duodenum R12, Heartburn CPT copyright 2020 [employer]. All rights reserved. The codes documented in this report are preliminary and upon web press jogger reviewmay be revised to meet current compliance requirements. DELROY Poe DO 05/17/2025 12:20:41 PM This report has been signed electronically.Delroy Poe DO Number of Addenda: 0 Note Initiated On: 05/17/2025 12:00 PM Scope In: Scope Out: Endoscopy Department at [facility] - [address] [place] [phone] IMPRESSION: - Z-line irregular, 36 cm from the incisors. Biopsied. WATS-3D brush biopsy specimens obtained. - Erosive gastropathy with stigmata of recent bleeding. Biopsied. - One gastric polyp. Resected and retrieved. - Normal examined duodenum. Recommendation: - Discharge patient to home. - Resume previous diet. - Continue present medications. - Await pathology results. - Increase PPI to BID. Delroy Poe DO GI~PROCEDURE ORDERABLES Final Re sult * Tissue exam (05/17/2025 12:13 PM EDT) Final Diagnosis A. Stomach, random sites, biopsy: - Gastric antral-type mucosa with patchy [...] pill fragments (versus an artifact of specimen collection/processing ). Note: Although the rare mildly dilated fundic [...] or could be an artifact of specimen collection/processing . No intestinal metaplasia and no dysplasia are identified. 9:23 AM T [facility] Gross Description A. Gastric, Body, random biopsy: Labeled random ga gastric bod . Received in formalin are five soft, guardado-pink to red tissue fragments ranging from 0.15 cm to 0.25 cm in greatest diameter, which are wrapped in paper and submitted in toto in one cassette, five pieces, multiple levels. B. Esophagus, ge junction biopsy: Labeled GE Juncti esophagus . Received in [...] one cassette, one piece, multiple levels. TS 9:23 AM EDT [facility] Disclaimer NOTE: The immunohistochemical tests and in situ hybridization tests were developed and their performance characteristics were determined by [facility]. They have not been cleared [...] high complexity clinical laboratory testing. (controls appropriate) Unless otherwise specified, all tissue is 10% NB formalin fixed and paraffin embedded. 9:23 AM EDT [facility] Tissue Gastric corpus structure / Unknown 05/17/2025 12:13 PM EDT 05/17/2025 1:46 PM EDT Tissue specimen (specimen) Esophageal structure / Unknown 05/17/2025 12:14 PM EDT 05/17/2025 1:46 PM EDT Tissue specimen (specimen) Pyloric antrum structure / Unknown 05/17/2025 12:15 PM EDT 05/17/2025 1:46 PM EDT us Delroy Lui DO LAB PATHOLOGY ORDERABLES Final R esult [facility] [address] [place] [address], [place] [phone] * CT Chest wo Contrast (05/13/2025 12:20 PM EDT) Anatomical Region Laterality Modality Body Computed Tomogra phy 05/13/2025 3:00 PM EDT Impressions 05/13/2025 3:05 PM EDT No infiltrates or effusions. 2 mm right lower lobe pulmonary nodules likely inflammatory. No thoracic lymphadenopathy. -------- FINAL REPORT -------- Dictated By: Karely Grove Dictated Date: 05/13/2025 15:00 ET Assigned Physician: Karely Grove Reviewed and Electronically Signed By: Karely Grove Signed Date: 05/13/2025 15:05 ET Workstation ID: [id number] Transcribed By: Self Edit Transcribed Date: 05/13/2025 15:00 ET Narrative 05/13/2025 3:05 PM EDT INDICATION: Cough TECHNIQUE: CT scan of the chest obtained without contrast. Scanner: [email or web address] 64 slice VCT Dose reduction technique: ASIR (Adaptive statistical iterative reconstruction) and/or AEC [...] size and shape without pericardial effusion. Unopacified mediastinal vascular structures are grossly normal in course and caliber for the patient's age. Bony structures of the thorax demonstrate mild scoliotic changes. Visualized portion upper abdomen are unremarkable. Procedure Note Karely Grove MD - 05/13/2025 INDICATION: Cough TECHNIQUE: CT scan of the chest obtained without contrast. Scanner: [employer] 64 slice VCT Dose reduction technique: ASIR (Adaptive statistical iterativereconstruction) and/or AEC (automated exposure control) Dose: total exam DLP 772 mGY per cm COMPARISON: No prior chest CT available for comparison. Chest x-ray fromApril 10, 2025 reviewed. FINDINGS: Lung mays are well aerated without infiltrates or effusions. Minimalatelectatic changes noted anterolaterally within the lung bases. 2 mmperformed noncalcified nodule within the right lower lobe inferiorly onseries 3 image 87 as well as series 3 image 80.. No thoracic lymphadenopathy. Trachea and esophagus are within normallimits. Heart normal in size and shape without pericardial effusion. Unopacified mediastinal vascular structures are grossly normal in courseand caliber for the patient's age. Bony structures of the thorax demonstrate mild scoliotic changes. Visualized portion upper abdomen are unremarkable. IMPRESSION: No infiltrates or effusions. 2 mm right lower lobe pulmonary nodules likely inflammatory. No thoracic lymphadenopathy. -------- FINAL REPORT -------- Dictated By: Karely Grove Dictated Date: 05/13/2025 15:00 ET Assigned Physician: Karely Grove Reviewed and Electronically Signed By: Karely Grove Signed Date: 05/13/2025 15:05 ET Workstation ID: [id number] Transcribed By: Self Edit Transcribed Date: 05/13/2025 15:00 ET us Vaughn MADERA IMG CT PROCEDURES Final Res ult * ECG-Annotated (04/14/2025) us Provider Onbase ECG ORDERABLES Final Result * Troponin I high sensitivity (04/10/2025 2:46 PM EDT) Only the most recent of2 resultswithin the time period is included. [facility] High Sensitivity Troponin I 26 <=54 ng/L LAB CHEMISTRY METHOD 04/10/2025 4:09 PM EDT [facility] Blood Venous blood specimen / Unknown Venipuncture / Unknown 04/10/2025 2:46 PM EDT 04/10/2025 3:38 PM EDT Narrative [facility] - 04/10/2025 4:09 PM EDT High levels of biotin in samples may falsely decrease hsTroponin values. Use caution when interpreting hsTroponin results in patients taking biotin who exhibit renal impairment (eGFR <60) or in patients taking more than 20 mg/day of biotin. us Cierra Sow MD LAB BLOOD ORDERABLES Final Resul t [facility] [address] [place] [address], * ECG 12 lead (04/10/2025 2:33 PM EDT) Only the most recent of2 resultswithin the time period is included. [facility] Ventricular Rate ECG 63 BPM GEMUSE Atrial Rate 63 BPM GEMUSE P-R Interval 186 ms GEMUSE QRS Duration 100 ms GEMUSE Q-T Interval 404 ms GEMUSE QTc 413 ms GEMUSE P Wave [place] 15 degrees GEMUSE R [place] -23 degrees GEMUSE T [place] 71 degrees GEMUSE ECG Interpretation Normal sinus rhythm Moderate voltage criteria for LVH, may be normal variant When compared with ECG of 10-APR-2025 13:15, (unconfirmed) No significant change was found Confirmed by LATOYA SIMON ([id number]) on 04/11/2025 1:48:21 PM GEMUSE 04/10/2025 2:33 PM EDT 04/11/2025 1:48 PM EDT us Fátima Bennett DO ECG ORDERABLES Final Res ult GEMUSE * XR Chest 2 Views (04/10/2025 1:54 PM EDT) Anatomical Region Laterality Modality Body Radiographic Sayra ging 04/10/2025 2:33 PM EDT Impressions 04/10/2025 2:33 PM EDT FINDINGS/IMPRESSION: No pneumonia or pulmonary edema. No pleural effusion or pneumothorax. Cardiac silhouette is normal in size. Mild degenerative changes seen throughout the bones. -------- FINAL REPORT -------- Dictated By: DONOVAN RODRIGUEZ Dictated Date: 04/10/2025 14:33 ET Assigned Physician: DONOVAN RODRIGUEZ Reviewed and Electronically Signed By: DONOVAN RODRIGUEZ Signed Date: 04/10/2025 14:33 ET Workstation ID: [id number] Transcribed By: Self Edit Transcribed Date: 04/10/2025 14:33 ET Narrative 04/10/2025 2:33 PM EDT XR CHEST 2 VIEWS INDICATION: Pain TECHNIQUE: XR CHEST 2 VIEWS COMPARISON: 06/21/2011 Procedure Note Donovan Rodriguez MD - 04/10/2025 XR CHEST 2 VIEWS INDICATION: Pain TECHNIQUE: XR CHEST 2 VIEWS COMPARISON: 06/21/2011 IMPRESSION: FINDINGS/IMPRESSION: No pneumonia or pulmonary edema. No pleural effusionor pneumothorax. Cardiac silhouette is normal in size. Mild degenerativechanges seen throughout the bones. -------- FINAL REPORT -------- Dictated By: DONOVAN RODRIGUEZ Dictated Date: 04/10/2025 14:33 ET Assigned Physician: DONOVAN RODRIGUEZ Reviewed and Electronically Signed By: DONOVAN RODRIGUEZ Signed Date: 04/10/2025 14:33 ET Workstation ID: [id number] Transcribed By: Self Edit Transcribed Date: 04/10/2025 14:33 ET Cierra Sow MD IMG XR PROCEDURES Final Result * Prothrombin time with INR (04/10/2025 1:36 PM EDT) [facility] Protime 12.3 10.6 - 13.9 sec LAB COAGULATION METHOD 04/10/2025 2:48 PM EDT [facility] INR 1.0 LAB COAGULATION METHOD 04/10/2025 2:48 PM EDT [facility] Blood Venous blood specimen / Unknown Venipuncture / Unknown 04/10/2025 1:36 PM EDT 04/10/2025 2:33 PM EDT us Ezequiel Dennis DO LAB BLOOD ORDERABLES Final Res ult [facility] [address] [place] [address], [place] [phone] * [id number], RSV, Influenza A and B qualitative RT-PCR (04/10/2025 1:25 PM EDT) [facility] Influenza A PCR Not Detected Not Detected LAB MICROBIOLOGY METHOD 04/10/2025 3:31 PM EDT [facility] Influenza B PCR Not Detected Not Detected LAB MICROBIOLOGY METHOD 04/10/2025 3:31 PM EDT [facility] RSV PCR Not Detected Not Detected LAB MICROBIOLOGY METHOD 04/10/2025 3:31 PM EDT [facility] SARS COV-2 Not Detected Not Detected LAB MICROBIOLOGY METHOD 04/10/2025 3:31 PM EDT [facility] Swab Both anterior nares / Unknown Non-blood Collection / Unknown 04/10/2025 1:25 PM EDT 04/10/2025 2:35 PM EDT Narrative [facility] - 04/10/2025 3:31 PM EDT Disclaimer: Testing was performed using the [employer] GeneXpert Xpress SARS-CoV-2 _Flu_RSV PLUS PCR assay. The manner in which this information is used to guide patient care is the responsibility of the healthcare provider. Results should be correlated with the clinical history, epidemiological data, and other data available to the clinician evaluating the patient. Negative results do not preclude infection. This test has been authorized by the FDA under an Emergency Use Authorization (EUA). This test is only authorized for the duration of time the declaration that circumstances exist justifying the authorization of the emergency use of in vitro diagnostic tests for detection of SARS-CoV-2 virus and/or diagnosis of COVID-19 infection under section 564 (b) (1) of the Act, 21 U.S.C 360bbb-3 (b) (1), unless the authorization is terminated or revoked sooner. Reference Range: Not Detected Fact sheet for Healthcare providers can be found at https://www.fda.gov/media/358894/download. Fact sheet for Healthcare patients can be found at https://www.fda.gov/media/537121/download. Ezequiel Dennis DO LAB MICROBIOLOGY - GENERAL ORD ERABLES Final Result [facility] [address] [place] [address], * (ABNORMAL) CBC auto differential (04/10/2025 1:21 PM EDT) [facility] WBC 7.2 4.8 - 10.8 K/mcL LAB HEMETOLOGY METHOD 04/10/2025 2:49 PM EDT [facility] RBC 5.20(H) 3.80 - 4.80 M/mcL LAB HEMETOLOGY METHOD 04/10/2025 2:49 PM EDT [facility] Hemoglobin 11.2(L) 11.5 - 16.0 g/dL LAB HEMETOLOGY METHOD 04/10/2025 2:49 PM EDT [facility] Hematocrit 36.6 35.0 - 47.0 % LAB HEMETOLOGY METHOD 04/10/2025 2:49 PM EDT [facility] MCV 70.7(L) 79.0 - 98.0 FL LAB HEMETOLOGY METHOD 04/10/2025 2:49 PM EDT [facility] MCH 21.6(L) 27.0 - 32.0 pcg LAB HEMETOLOGY METHOD 04/10/2025 2:49 PM EDT [facility] MCHC 30.6(L) 32.0 - 37.0 g/dL LAB HEMETOLOGY METHOD 04/10/2025 2:49 PM EDT [facility] RDW 17.3(H) 11.0 - 15.0 % LAB HEMETOLOGY METHOD 04/10/2025 2:49 PM EDT [facility] Platelets 250 130 - 400 K/mcL LAB [facility]OLOGY [facility] MPV 11.5(H) 7.0 - 11.0 FL LAB HEMETOLOGY METHOD 04/10/2025 2:49 PM EDT [facility] NRBC 0.0 <1.0 % LAB [facility]ETOLOGY [facility] NRBC Absolute 0.00 <0.10 K/mcL LAB HEMETOLOGY METHOD 04/10/2025 2:49 PM [facility] Neutrophils Relative 62.8 % LAB HEMETOLOGY METHOD 04/10/2025 2:[facility] Lymphocytes Relative 17.3 % LAB HEMETOLOGY METHOD 04/10/2025 2:49 PM EDT [facility] Monocytes Relative 11.5 % LAB HEMETOLOGY METHOD 04/10/2025 2:[facility] Eosinophils Relative 7.3 % LAB HEMETOLOGY METHOD 04/10/2025 2:[facility] Basophils Relative 0.7 % LAB HEMETOLOGY METHOD 04/10/2025 2:49 [facility] Immature Granulocytes Relative 0.4 % LAB HEMETOLOGY METHOD 04/10/2025 2:49 PM EDT [facility] Neutrophils Absolute 4.50 1.50 - 7.00 K/[facility] LAB HEMETOLOGY METHOD 04/10/2025 2:49 PM EDT [facility] Lymphocytes Absolute 1.24 1.00 - 5.00 K/[facility] LAB HEMETOLOGY METHOD 04/10/2025 2:49 PM EDT [facility] Monocytes Absolute 0.82 0.20 - 1.00 K/[facility] LAB HEMETOLOGY METHOD 04/10/2025 2:49 PM EDT [facility] Eosinophils Absolute 0.52(H) 0.00 - 0.50 K/[facility] LAB HEMETOLOGY METHOD 04/10/2025 2:49 PM EDT [facility] Basophils Absolute 0.05 0.00 - 0.20 K/[facility] LAB HEMETOLOGY METHOD 04/10/2025 2:49 PM EDT [facility] Immature Granulocytes Absolute 0.03 0.00 - 0.03 K/[facility] LAB HEMETOLOGY METHOD 04/10/2025 2:49 PM EDT [facility] Blood Venous blood specimen / Unknown Venipuncture / Unknown 04/10/2025 1:21 PM EDT 04/10/2025 2:34 PM EDT us Cierra Sow MD LAB BLOOD ORDERABLES Final Resul t [facility] [address] [place] [address], * B-type natriuretic peptide (04/10/2025 1:21 PM EDT) BNP 70 <=100 pcg/mL LAB CHEMISTRY METHOD 04/10/2025 3:27 PM EDT [facility] Blood Venous blood specimen / Unknown Venipuncture / Unknown 04/10/2025 1:21 PM EDT 04/10/2025 2:34 PM EDT us Cierra Sow MD LAB BLOOD ORDERABLES Final Resul t Performing Organization Address [facility]/ZIP Co de Phone Number [facility] [address] [place] [address], [place] [phone] * Magnesium (04/10/2025 1:21 PM EDT) Pathologist [facility] [place] Magnesium 2.2 1.9 - 2.6 mg/dL LAB CHEMISTRY METHOD 04/10/2025 3:01 PM EDT [facility] Blood Venous blood specimen / Unknown Venipuncture / Unknown 04/10/2025 1:21 PM EDT 04/10/2025 2:34 PM EDT us Cierra Sow MD LAB BLOOD ORDERABLES Final Resul t Performing Organization Address [facility] Co de Phone Number [facility] [address] [place] [address], [place] [phone] * Lipase (04/10/2025 1:21 PM EDT) [facility] Lipase 44 13 - 75 unit/L LAB CHEMISTRY METHOD 04/10/2025 3:01 PM EDT [facility] Blood Venous blood specimen / Unknown Venipuncture / Unknown 04/10/2025 1:21 PM EDT 04/10/2025 2:34 PM EDT us Cierra Sow MD LAB BLOOD ORDERABLES Final Resul t Performing Organization Address City/[facility]/ZIP Co de Phone Number [facility] [address] [place] [address], [place] [phone] * (ABNORMAL) Comprehensive metabolic panel (04/10/2025 1:21 PM EDT) Pathologist [facility] [place] Sodium 143 133 - 145 mmol/L LAB CHEMISTRY METHOD 04/10/2025 3:01 PM [facility] Potassium 4.0 3.5 - 5.5 mmol/L LAB CHEMISTRY METHOD 04/10/2025 3:01 PM [facility] Chloride 111(H) 96 - 110 mmol/L LAB CHEMISTRY METHOD 04/10/2025 3:01 PM [facility] CO2 28 21 - 32 mmol/L LAB CHEMISTRY METHOD 04/10/2025 3:01 PM [facility] Anion Gap 4 3 - 11 LAB CHEMISTRY METHOD 04/10/2025 3:01 PM [facility] Glucose 101(H) 70 - 100 mg/dL LAB CHEMISTRY METHOD 04/10/2025 3:01 PM [facility] BUN 12 5 - 25 mg/dL LAB CHEMISTRY METHOD 04/10/2025 3:01 PM [facility] Creatinine 0.72 0.50 - 1.10 mg/dL LAB CHEMISTRY METHOD 04/10/2025 3:01 PM [facility] eGFR 88 >=60 mL/min/1. 73m2 LAB CHEMISTRY METHOD 04/10/2025 3:01 PM [facility] Comment:Calculation based on the Chronic Kidney Disease Epidemiology Collaboration (CKD-EPI) equation refit without adjustment for race. BUN/Creatinine Ratio 16.7 LAB CHEMISTRY METHOD 04/10/2025 3:01 PM [facility] Calcium 9.0 8.5 - 10.5 mg/dL LAB CHEMISTRY METHOD 04/10/2025 3:01 PM [facility] AST (SGOT) 32 10 - 42 unit/L LAB CHEMISTRY METHOD 04/10/2025 3:01 PM [facility] ALT (SGPT) 28 10 - 60 unit/L LAB CHEMISTRY METHOD 04/10/2025 3:01 PM [facility] Alkaline Phosphatase 92 42 - 121 unit/L LAB CHEMISTRY METHOD 04/10/2025 3:01 PM EDT [facility] Total Protein 6.5 6.0 - 8.0 g/dL LAB CHEMISTRY METHOD 04/10/2025 3:01 PM EDT [facility] Albumin 3.4 3.2 - 5.0 g/dL LAB CHEMISTRY METHOD 04/10/2025 3:01 PM EDT [facility] Total Bilirubin 0.2 0.0 - 1.4 mg/dL LAB CHEMISTRY METHOD 04/10/2025 3:01 PM EDT [facility] Blood Venous blood specimen / Unknown Venipuncture / Unknown 04/10/2025 1:21 PM EDT 04/10/2025 2:34 PM EDT us Cierra Sow MD LAB BLOOD ORDERABLES Final Resul t [facility] [address] [place] [address], [place] [phone] from Last 3 Months Insurance [employer] MED[employer]ARE [place]ICAID - [place] Care Teams Director Epidemiology Relationship Specialty Start Date End Date Jennifer Patterson MD [address] [place] [address] PCP - General Internal Medicine 12/23/24
[2025-06-07 08:50] VITALS: BP 136/65; PULSE 69; RESP 16; TEMP 36.2; O2SAT 97
--- NOTE | 2025-06-07 09:21 | MHC.SHP ---
Pre-Procedural Eval Section A - 24 Hr Update-Section A only Date of Service: 06/07/25 The patient is an INPATIENT: No Changes since office visit: No Cold of Flu in the past 2 weeks, No New Medical Problems, No Changes in Medication and No Patient answered all questions The patient has been examined within 24 hours of the surgical procedure. The History & Physical has been completed within 30 days and I have reviewed it.: Yes Section B - Complete if H&P > 30 days Chief Complaint: Localized swelling, mass and lump, left upper limb Allergies: Allergies Allergy/AdvReac Type Severity Reaction Status Date / Time Unable to Assess Allergy Unverified 06/04/25 16:18 Plan I have reviewed the history and physical and performed a pertinent physical examination on my patient. No changes have occurred unless specified. Time Spent With Patient Time: Total time managing care of this patient today ____ minutes.
--- NOTE | 2025-06-07 09:21 | W.PM.OPN ---
Operative Note Operative Note Date of Service: 06/07/25 Narrative: Operative Note Preop diagnosis: 1. Left small finger pad, soft tissue mass Postop diagnosis: same Procedure: 1. Left small finger pad, excisional soft tissue mass Surgeon: Alix Murphy MD Rural Service Engineer: None Anesthesia: digital block using 1% lidocaine with epinephrine Findings: A solid spherical white soft tissue mass measuring approximately 5-6 mm in diameter was removed from the pad of the patient's left small finger. EBL: Less than 5 mL Tourniquet time: None Specimens: Left small finger soft tissue mass sent for histopathology Complications: None Disposition: Brought to recovery room in stable condition Plan: Follow-up for 7-10 days for wound check and suture removal and to check pathology Indications: The patient is 74 years old, with left small finger painful soft tissue mass within the ulnar aspect of the pad . The risks and benefits of operative treatment including but not limited to risk of damage to blood vessels, nerves, tendons, infection, persistent pain, persistent symptoms, recurrence or possible need for additional surgery were discussed with the patient and the patient wishes to proceed with surgery. Procedure: Once consent was obtained a digital block was performed in the preop area using a combination of 1% lidocaine with epinephrine. The patient was then brought back to the operating suite and placed on the operative table in supine position. The left upper extremity was prepped and draped in a standard surgical fashion. Once assured that we had a good block, I made a 1 cm longitudinal incision centered over the mass in the ulnar pad of the left small finger. The incision was made through the skin to the subcutaneous tissues using a 15. Blade. I then dissected down to the mass which was within the pad of the left small finger. We quickly encountered a spherical white solid soft tissue mass measuring about 5-6 mm in diameter. I dissected it free from the surrounding small neurovascular structures removed it and placed it on the back table to be sent for histopathology. I did make a small incision in the mass to see whether it was cystic or solid and it is a solid white soft tissue mass. Once satisfied with left soft tissue mass excisional biopsy the wound was copiously irrigated with normal saline and hemostasis was obtained with a brief period of local pressure. The skin edges were reapproximated with some 5.0 nylon suture material and a sterile dressing was applied. The patient appears to have tolerated the procedure well and with no complications. All digits were well vascularized at the conclusion of the case.
[2025-06-07 10:35] VITALS: BP 154/68; PULSE 61; RESP 15; O2SAT 95
== END 2025-06-07 10:36 | disposition home or self-care (01) ==
PROVIDERS: PCP Hospitalist; Visit Provider Orthopaedic Surgery
PROC: (CPT 64788; principal; 2025-06-07 09:30)
DX: D36.12 Benign neoplasm of peripheral nerves and autonomic nervous system, upper limb, including shoulder (principal)
CPT/HCPCS: 64788; 88304; 88305; J0165; J2003

== ENCOUNTER → 2025-06-07 08:15 | Outpatient (BNV) | payer MEDICARE, SELFPAY | PROVIDERS: PCP Hospitalist; Visit Provider Orthopaedic Surgery | DX: R22.32 Localized swelling, mass and lump, left upper limb (principal); Q85.00 Neurofibromatosis, unspecified | CPT/HCPCS: 26115 ==

== ENCOUNTER 2025-06-16 09:34 | Outpatient (REF) | payer MEDICARE, SELFPAY ==
--- OUTSIDE RECORDS SUMMARY | 2025-06-15 09:45 | XMS_ITS ---
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 Name Role Phone AMYHAIDERD Primary Care Provider Vaughn Stiles Unavailable [phone] Allergies Allergen (clinical drug ingredient) Drug/Non Drug Allergy documented on EMR Reaction Allergy Type Onset Date Status lisinopril Lisinopril swelling of lips Drug Allergy Active REASON FOR VISIT 1 [place] [facility] [place] Medications Medication SIG (Take, Route, Frequency, Duration) Notes Start Date End Date Status Atorvastatin Calcium 10 MG TAKE 1 TABLET BY MOUTH EVERY DAY; Duration: 90 days Active FreeStyle Kimball Lite w/Device as directed in vitro daily; Duration: 90 days Active metFORMIN HCl 1000 MG 1 tablet with a me al Orally 2 TIMES A DAY; Duration: 30 day(s) Active Ozempic (0.25 or 0.5 MG/DOSE) 2 MG/3ML once weekly Subcutaneous weekly 05/11/2024 Not-Taking FreeStyle Lancets - as directed for use with freestyle llite sc daily; Duration: 90 days Active Mounjaro 2.5 MG/0.5ML as directed Subcutaneous weekly; Duration: 30 days 06/15/2025 Active tiZANidine HCl 2 MG TAKE 1 TABLET BY MOUTH THREE TIMES DAILY FOR 7 DAYS NEEDED; Duration: 7 Not-Taking amLODIPine Besylate 2.5 MG 1 tablet Oral ly Once a day; Duration: 30 days 06/15/2025 Active Aspirin 81 MG 1 tablet Orally Once a day Active Ampicillin 500 MG 1 capsule Orally 8 hours; Duration: 5 days 12/31/2023 Not-Taking Fluconazole 150 MG 1 tablet Orally daily; Duration: 7 days 05/20/2025 Active Amitriptyline HCl 10 MG 1 tablet at bedt linnea Orally Once a day; Duration: 30 day(s) 11/29/2022 Not-Taking hydrOXYzine HCl 25 MG 1 tablet as needed Orally Once a day; Duration: 30 days 12/31/2023 Not-Taking ZyrTEC 10 MG 1 tablet Orally Once a day; Duration: 30 day(s) Not-Taking Doxycycline Hyclate 50 MG 1 capsules Ora lly Twice a day; Duration: 7 days 02/19/2024 Not-Taking Mylanta Maximum Strength 400-400-40 MG/5ML 10 mL as needed Orally Twice a day; Duration: 30 days 05/20/2025 Active Ibuprofen 600 MG 1 tablet with food or milk as needed Orally Three times a day; Duration: 30 days Not-Taking Doxycycline Hyclate 100 MG 1 capsule Ora lly Twice a day; Duration: 7 days 12/15/2024 Not-Taking Esomeprazole Magnesium 40 MG 1 capsule 1 /2 to 1 hour before morning meal Orally Once a day; Duration: 30 days 05/20/2025 Active Hydrocortisone Anti-Itch 1 % 1 applicati on Externally Once a day; Duration: 30 days 11/01/2022 Active Albuterol Sulfate HFA 108 (90 Base) MCG/ACT 1 puff as needed Inhalation every 4 hrs; Duration: 30 days Active Ketoconazole 2 % as directed Externally 4 times a week; Duration: 30 days 03/11/2025 Active Fluticasone Propionate 50 MCG/ACT SHAKE LIQUID AND USE 1 SPRAY in EACH NOSTRIL EVERY DAY Nasally Twice a day; Duration: 30 days Active Symbicort 80-4.5 MCG/ACT as directed Inhalation twice a day; Duration: 30 days 04/22/2025 Active hydroCHLOROthiazide 25 MG 1 tablet in morning Orally Once a day; Duration: 90 days Active Social History Tobacco Use: Social History Observation Description Date Details (start date - stop date) Never Smoker NA - NA Tobacco Use/Smoking Question Answer Notes Are you a nonsmoker Vital Signs Temperature 96.8 degrees Fahrenheit 06/15/20 25 Oximetry 97 % 06/15/2025 Heart Rate 75 /min 06/15/2025 Blood pressure systolic 150 mm Hg 06/15/20 25 Blood pressure diastolic 80 mm Hg 025 Weight 179.3 lbs 06/15/2025 BMI 35.01 kg/m2 06/15/2025 Height 60 in 06/15/2025 Encounters Encounter Location Date Provider Diagnosis [facility] [address] [place] [address] 06/15/2025 Vaughn Stiles Essential (primary) hypertension I10 ; Type 2 diabetes mellitus with unspecified complications E11.8 and Dysuria R30.0 Assessments Encounter Date Diagnosis (ICD Code) Assessment Notes Treatment Notes Treatment Clinical Notes Section Notes 06/15/2025 Essential (primary) hypertension (ICD-10 - I10) Ms. Hightower is a 74-year-old lady with DM type II, hypertension, hyperlipidemia, acid reflux and history of hallucinations, Sickle cell trait and alpha thalassemia trait, seborrheic capitis Is here Follow-up and a recent cyst removal. Plan as follows Cyst removal. Her incision is intact. It was done at [place] and she has a follow-up tomorrow for this removal. Hypertension. Her blood pressure is elevated in the office today compared to previously has been fluctuating. I will start patient on amlodipine 2.5 mg and continue chlorthalidone. Her recent comp shows normal kidney and electrolytes. We will follow up in 3 weeks Type 2 diabetes. Recent A1c of 7.7. She is currently on metformin thousand milligrams twice a day. I have discussed Mounjaro 2.5mg. No history of pancreatitis, cholecystitis, family history personal history of medullary thyroid cancer. Possible side effects have been discussed. A sample of the medication is given in the office today with instructions on how to use the medication has been provided as well. We will recheck A1c and 3 months Dysuria: she continues to experience white discharge, she was given Diflucan 1 tablet last time without much improvement. I will extend the treatment course. We have done you and your culture and the result came back negative. Genital exam is done office today without any signs of irritation or skin changes. Recent blood work has been discussed with the patient I have spent over 20 minutes in the room with the patient, formulating a plan, discussing her recent cyst removal and her current chief complaints General concerns have been discussed I have rendered the services for this patient under direct supervision of Dr. Reyes, who did not see the patient but was available upon requestContent of this note has been dictated using voice recognition software. Despite multiple revisions, Errors may persist 06/15/2025 Type 2 diabetes mellitus with unspecified complications (ICD-10 - E11.8) Ms. Hightower is a 74-year-old lady with DM type II, hypertension, hyperlipidemia, acid reflux and history of hallucinations, Sickle cell trait and alpha thalassemia trait, seborrheic capitis Is here Follow-up and a recent cyst removal. Plan as follows Cyst removal. Her incision is intact. It was done at [place] and she has a follow-up tomorrow for this removal. Hypertension. Her blood pressure is elevated in the office today compared to previously has been fluctuating. I will start patient on amlodipine 2.5 mg and continue chlorthalidone. Her recent comp shows normal kidney and electrolytes. We will follow up in 3 weeks Type 2 diabetes. Recent A1c of 7.7. She is currently on metformin thousand milligrams twice a day. I have discussed Mounjaro 2.5mg. No history of pancreatitis, cholecystitis, family history personal history of medullary thyroid cancer. Possible side effects have been discussed. A sample of the medication is given in the office today with instructions on how to use the medication has been provided as well. We will recheck A1c and 3 months Dysuria: she continues to experience white discharge, she was given Diflucan 1 tablet last time without much improvement. I will extend the treatment course. We have done you and your culture and the result came back negative. Genital exam is done office today without any signs of irritation or skin changes. Recent blood work has been discussed with the patient I have spent over 20 minutes in the room with the patient, formulating a plan, discussing her recent cyst removal and her current chief complaints General concerns have been discussed I have rendered the services for this patient under direct supervision of Dr. Reyes, who did not see the patient but was available upon requestContent of this note has been dictated using voice recognition software. Despite multiple revisions, Errors may persist 06/15/2025 Dysuria (ICD-10 - R30.0) Ms. Hightower is a 74-year-old lady with DM type II, hypertension, hyperlipidemia, acid reflux and history of hallucinations, Sickle cell trait and alpha thalassemia trait, seborrheic capitis Is here Follow-up and a recent cyst removal. Plan as follows Cyst removal. Her incision is intact. It was done at [place] and she has a follow-up tomorrow for this removal. Hypertension. Her blood pressure is elevated in the office today compared to previously has been fluctuating. I will start patient on amlodipine 2.5 mg and continue chlorthalidone. Her recent comp shows normal kidney and electrolytes. We will follow up in 3 weeks Type 2 diabetes. Recent A1c of 7.7. She is currently on metformin thousand milligrams twice a day. I have discussed Mounjaro 2.5mg. No history of pancreatitis, cholecystitis, family history personal history of medullary thyroid cancer. Possible side effects have been discussed. A sample of the medication is given in the office today with instructions on how to use the medication has been provided as well. We will recheck A1c and 3 months Dysuria: she continues to experience white discharge, she was given Diflucan 1 tablet last time without much improvement. I will extend the treatment course. We have done you and your culture and the result came back negative. Genital exam is done office today without any signs of irritation or skin changes. Recent blood work has been discussed with the patient I have spent over 20 minutes in the room with the patient, formulating a plan, discussing her recent cyst removal and her current chief complaints General concerns have been discussed I have rendered the services for this patient under direct supervision of Dr. Reyes, who did not see the patient but was available upon requestContent of this note has been dictated using voice recognition software. Despite multiple revisions, Errors may persist Plan Of Treatment Medication Medication Name Sig Start Date Stop Date Notes Mounjaro 2.5 MG/0.5ML as directed Subcut aneous weekly; Duration: 30 days 06/15/2025 amLODIPine Besylate 2.5 MG 1 tablet Oral ly Once a day; Duration: 30 days 06/15/2025 Fluconazole 150 MG 1 tablet Orally andrew y; Duration: 7 days 05/20/2025 Pending Test Test Name Order Date Hemoglobin [id number] 06/15/2025 Comp. Metabolic Panel [id number] 2024 Next Appt Details Follow Up: 3 Weeks-bp, Reaso n: Provider Name:Vaughn steward, 07/06/2025 10:15:00 AM, [address] [place] [address], [place], [address], Provider Name:JUNG Antonieta REYES , 08/19/2025 10:30:00 AM, [address] [address], [place], [address], Provider Name:JUNG A AMY , 01/14/2026 10:00:00 AM, [address] [address], [place], [address], Progress Notes * Robel HIGHTOWERB:1950 (74 yo F)Acc No.[id number]:06/15/2025 Progress Notes Patient: Lorin HERNANDEZ Appointment Provider: Laura Stiles :1950 A ge:74 Y S ex:Female Supervising Provider:ERICH REYES MD Date:06/15/2025 Address:[address] [place] [address], [id number] Pcp:ERICH REYES Subjective: * Chief Complaints: * 1 [place] f[place] [facility] [place] * HPI: I nternal Medicine: Ms. Hightower is a 74-year-old lady with DM type II, hypertension, hyperlipidemia, acid reflux and history of hallucinations, Sickle cell trait and alpha thalassemia trait, seborrheic capitis Is here Follow-up and a recent cyst removal. Incision is intact, she has an appointment tomorrow for stitch removal. She continues to experience Urinary white discharge. During previous visit we have done UA and urine culture was negative for any bacterial growth. We have done a trial of fluconazole 1 tablet without movement. She admits to the vaginal pruritus. She denies any other active issues. * ROS: G eneral/Constitutional: Overall health G ood. C hange in appetite d enies.?Chills d enies. F ever d enies. N ight sweats d enies. S leep disturbance d enies. W eight gain d enies. W eight loss d enies. N eurologic: Difficulty speaking d enies. D izziness d enies.?Gait abnormality d enies. H eadache d enies. L oss of strength d enies. M valeria loss d enies. S eizures d enies. T ingling/Numbness d enies . D enies T ransient loss of vision. O phthalmologic: Blurred vision d enies. D ischarge d enies. D ry eye d enies. R ed eye d enies. E NT: Change in Voice D enies. C old Symptoms D enies.?Cough D enies. D izziness D enies. N tl Congestion D enies. O talgia?Denies. p ostnasal drip D enies. B locked ear d enies. N osebleed d enies. S noring d enies. C ardiovascular: Diaphoresis D enies. P edal Edema D enies. P ND (Paroxsymal nocturnal dyspnea) D enies. C hest pain d enies. D ifficulty laying flat d enies. D yspnea on exertion d enies. H eart murmur d enies. O rthopnea?denies. R espiratory: Snoring d enies. A sthma d enies. C ough d enies. S hortness of breath with exertion d enies. S putum production d enies. W heezing d enies. G astrointestinal: Change in bowel habits d enies. C onstipation d enies. D ecreased appetite d enies. D iarrhea d enies. H eartburn d enies. N ausea d enies. V omiting d enies. M usculoskeletal: tingling/numbness D enies. m yalgias D enies. J oint Swelling D enies. e xtremeties n ormal. P atient complaining of T ingling sensation in bilateral hands. A rthritis , admits. B ack problems d enies. C arpal tunnel d enies. J oint stiffness d enies. Muscle aches d enies. E ndocrine: Bowel Changes D enies. B reast Discharge D enies.?poor libido D enies. C old intolerance d enies. E xcessive sweating d enies.?Excessive thirst d enies. F requent urination d enies. T hyroid problems d enies. S kin: Bruising D enies. P atient complaining of c yst on the left fifth digit. E czema d enies. H air changes d enies. S kin lesion(s)?denies. P sychiatric: Anxiety d enies. D epressed mood d enies. D ifficulty sleeping d enies. N ervous breakdown d enies. S ubstance abuse d enies.? U rology: abnormal menstrual bleeding d enies. b lood in urine?denies. b urning on urination d enies. d ifficulty urinating d enies. d ischarge , admits, White discharge. d ysuria , admits. * Medical History: * Surgical History: a ppendectomy Left elbow fx * Hospitalization/Major Diagno stic Procedure: * Social History: T obacco Use: T obacco Use/Smoking A re you a n onsmoker * Medications: T akingAspirin 81 MG Tablet Delayed Release 1 tablet Orally Once a day FreeStyle Lancets - Miscellaneous as directed for use with [employer] sc daily FreeStyle Kimball Lite w/Device Kit as directed in vitro daily Atorvastatin Calcium 10 MG Tablet TAKE 1 TABLET BY MOUTH EVERY DAY metFORMIN HCl 1000 MG Tablet 1 tablet with a meal Orally 2 TIMES A DAY Albuterol Sulfate HFA 108 (90 Base) MCG/ACT Aerosol Solution 1 puff as needed Inhalation every 4 hrs Fluticasone Propionate 50 MCG/ACT Suspension SHAKE LIQUID AND USE 1 SPRAY in EACH NOSTRIL EVERY DAY Nasally Twice a day Ketoconazole 2 % Shampoo as directed Externally 4 times a week hydroCHLOROthiazide 25 MG Tablet 1 tablet in the morning Orally Once a day Symbicort 80-4.5 MCG/ACT Aerosol as directed Inhalation twice a day Hydrocortisone Anti-Itch 1 % Cream 1 application Externally Once a day Esomeprazole Magnesium 40 MG Capsule Delayed Release 1 capsule 1/2 to 1 hour before morning meal Orally Once a day Mylanta Maximum Strength 400-400-40 MG/5ML Suspension 10 mL as needed Orally Twice a day Taking Aspirin 81 MG Tablet Delayed Release 1 tablet Orally Once a day Taking FreeStyle Lancets - Miscellaneous as directed for use with freestyle llite sc daily Taking FreeStyle Kimball Lite w/Device Kit as directed in vitro daily Taking Atorvastatin Calcium 10 MG Tablet TAKE 1 TABLET BY MOUTH EVERY DAY Taking metFORMIN HCl 1000 MG Tablet 1 tablet with a meal Orally 2 TIMES A DAY Taking Albuterol Sulfate HFA 108 (90 Base) MCG/ACT Aerosol Solution 1 puff as needed Inhalation every 4 hrs Taking Fluticasone Propionate 50 MCG/ACT Suspension SHAKE LIQUID AND USE 1 SPRAY in EACH NOSTRIL EVERY DAY Nasally Twice a day Taking Ketoconazole 2 % Shampoo as directed Externally 4 times a week Taking hydroCHLOROthiazide 25 MG Tablet 1 tablet in the morning Orally Once a day Taking Symbicort 80-4.5 MCG/ACT Aerosol as directed Inhalation twice a day Taking Hydrocortisone Anti-Itch 1 % Cream 1 application Externally Once a day Taking Esomeprazole Magnesium 40 MG Capsule Delayed Release 1 capsule 1/2 to 1 hour before morning meal Orally Once a day Taking Mylanta Maximum Strength 400-400-40 MG/5ML Suspension 10 mL as needed Orally Twice a day Not-TakingOzempic (0.25 or 0.5 MG/DOSE) 2 MG/3ML Solution Pen-injector once weekly Subcutaneous weekly Fluconazole 150 MG Tablet 1 tablet Orally daily Ibuprofen 600 MG Tablet 1 tablet with food or milk as needed Orally Three times a day Doxycycline Hyclate 100 MG Capsule 1 capsule Orally Twice a day Amitriptyline HCl 10 MG Tablet 1 tablet at bedtime Orally Once a day ZyrTEC 10 MG Tablet Chewable 1 tablet Orally Once a day hydrOXYzine HCl 25 MG Tablet 1 tablet as needed Orally Once a day Doxycycline Hyclate 50 MG Capsule 1 capsules Orally Twice a day tiZANidine HCl 2 MG Tablet TAKE 1 TABLET BY MOUTH THREE TIMES DAILY FOR 7 DAYS NEEDED Ampicillin 500 MG Capsule 1 capsule Orally 8 hours Not-Taking Ozempic (0.25 or 0.5 MG/DOSE) 2 MG/3ML Solution Pen-injector once weekly Subcutaneous weekly Not-Taking Fluconazole 150 MG Tablet 1 tablet Orally daily Not-Taking Ibuprofen 600 MG Tablet 1 tablet with food or milk as needed Orally Three times a day Not-Taking Doxycycline Hyclate 100 MG Capsule 1 capsule Orally Twice a day Not-Taking Amitriptyline HCl 10 MG Tablet 1 tablet at bedtime Orally Once a day Not-Taking ZyrTEC 10 MG Tablet Chewable 1 tablet Orally Once a day Not-Taking hydrOXYzine HCl 25 MG Tablet 1 tablet as needed Orally Once a day Not-Taking Doxycycline Hyclate 50 MG Capsule 1 capsules Orally Twice a day Not-Taking tiZANidine HCl 2 MG Tablet TAKE 1 TABLET BY MOUTH THREE TIMES DAILY FOR 7 DAYS NEEDED Not-Taking Ampicillin 500 MG Capsule 1 capsule Orally 8 hours * Allergies: L isinopril: swelling of lips - Side Effectsno[Allergies Verified] Objective: * Vitals: T emp:96.8F, Oxygen sat %:97%, HR:75/min, BP: 140/78 mm Hg,150/80mm Hg, Wt:179.3lbs, BMI:35.01Index, Ht: 60 in. * P ast Orders: L ab:Hemoglobin [id number] (Order Date - 05/20/2025) (Collection Date & Time - 05/20/2025 01:22 PM) Value Reference Range Hemoglobin A1c/ Hemoglobin total 7.7 H 4.8-5.6 - % L ab:Lipid [id number] (Order Date - 05/20/2025) (Collection Date & Time - 05/20/2025 01:22 PM) Value Reference Range Cholesterol, Total 158 100-199 - mg/dL Triglycerides 208 H 0-149 - mg/dL HDL Cholesterol 39 L >39 - mg/dL VLDL Cholesterol Lui 35 5-40 - mg/dL LDL Chol Calc ([facility]) 84 0-99 - mg/dL L ab:Comp. Metabolic Panel [id number] (Order Date - 01/08/2025) (Collection Date & Time - 01/11/2025 11:40 AM) Value Reference Range Glucose 96 70-99 - mg/dL BUN 12 8-27 - mg/dL Creatinine 0.82 0.57-1.00 - mg/dL BUN/Creatinine Ratio 15 12-28 - Sodium 144 134-144 - mmol/L Potassium 4.4 3.5-5.2 - mmol/L Chloride 103 96-106 - mmol/L Carbon Dioxide, Total 27 20-29 - mmol/L Calcium 9.8 8.7-10.3 - mg/dL Protein, Total 6.9 6.0-8.5 - g/dL Albumin 4.3 3.8-4.8 - g/dL Globulin, Total 2.6 1.5-4.5 - g/dL Bilirubin, Total 0.2 0.0-1.2 - mg/dL Alkaline Phosphatase 98 44-121 - IU/L AST (SGOT) 24 0-40 - IU/L ALT (SGPT) 14 0-32 - IU/L eGFR 75 >59 - mL/min/1.73 * Examination: G eneral Examination: GENERAL APPEARANCE: W ell developed, well nourished, in no acute distress. MUSCULOSKELETAL: n ormal. HEAD: N ormocephalic, atraumatic. EYES: P upils equal, round, reactive to light and accommodation, sclera non-icteric. EARS: N ormal. ORAL CAVITY: N ormal. THROAT: C lear. OROPHARYNX N ormal. SINUSES N ormal. NECK/THYROID: N dick supple, full range of motion, no cervical lymphadenopathy. SKIN: m elasma is noted on the face.incision is intact. HEART: r egular rate and rhythm grade 1/6 systolic murmur at right upper sternal border. LUNGS: , clear to auscultation bilaterally. BREASTS: _ _. ABDOMEN: S oft, nontender, nondistended, bowel sounds present, normal Negative CVA. EXTREMITIES: N ormal. PERIPHERAL PULSES: N ormal. NEUROLOGIC: N onfocal, appropriate motor strength normal upper and lower extremities, sensory exam intact. Psychiatry N ormal. FEMALE GENITOURINARY: c jim in room, [facility] No vaginal discharge, no erythema, or skin changes. MALE GENITOURINARY: _ _. Senior Oracle Database Developer _ ____. Assessment: * Assessment: 1. E ssential (primary) hypertension - I10 (Primary) 2 . T ype 2 diabetes mellitus with unspecified complications - E11.8 3 . D ysuria - R30.0 ? Ms. Hightower is a 74-year-old lady with DM type II, hypertension, hyperlipidemia, acid reflux and history of hallucinations, Sickle cell trait and alpha thalassemia trait, seborrheic capitis Is here Follow-up and a recent cyst removal. Plan as follows Cyst removal. Her incision is intact. It was done at [place] and she has a follow-up tomorrow for this removal. Hypertension. Her blood pressure is elevated in the office today compared to previously has been fluctuating. I will start patient on amlodipine 2.5 mg and continue chlorthalidone. Her recent comp shows normal kidney and electrolytes. We will follow up in 3 weeks Type 2 diabetes. Recent A1c of 7.7. She is currently on metformin thousand milligrams twice a day. I have discussed Mounjaro 2.5mg. No history of pancreatitis, cholecystitis, family history personal history of medullary thyroid cancer. Possible side effects have been discussed. A sample of the medication is given in the office today with instructions on how to use the medication has been provided as well. We will recheck A1c and 3 months Dysuria: she continues to experience white discharge, she was given Diflucan 1 tablet last time without much improvement. I will extend the treatment course. We have done you and your culture and the result came back negative. Genital exam is done office today without any signs of irritation or skin changes. Recent blood work has been discussed with the patient I have spent over 20 minutes in the room with the patient, formulating a plan, discussing her recent cyst removal and her current chief complaints General concerns have been discussed I have rendered the services for this patient under direct supervision of Dr. Reyes, who did not see the patient but was available upon requestContent of this note has been dictated using voice recognition software. Despite multiple revisions, Errors may persist Plan: * Treatment: 2. T ype 2 diabetes mellitus with unspecified complications Start Mounjaro Solution Auto-injector, 2.5 MG/0.5ML, as directed, Subcutaneous, weekly, 30 days, 4, Refills 3. L AB: Hemoglobin [id number] 3. D ysuria Refill Fluconazole Tablet, 150 MG, 1 tablet, Orally, daily, 7 days, 7 Tablet, Refills 0. * Procedure Codes: * Follow Up: 3 Weeks-bp * Images: * Sign off status: Completed true * Appointment Provider: Laura Stiles Date: 0 06/15/2025 Generated for Ramya bradford/Rosamaria/Lewisitting on: 0 06/16/2025 10:02 AM EDT History and Physical Notes * HPI (History of Present Illness) Category Sub-Category Detail Notes Category Not es Internal Medicine Ms. Hightower is a 74-year-old lady with DM type II, hypertension, hyperlipidemia, acid reflux and history of hallucinations, Sickle cell trait and alpha thalassemia trait, seborrheic capitis Is here Follow-up and a recent cyst removal. Incision is intact, she has an appointment tomorrow for stitch removal. She continues to experience Urinary white discharge. During previous visit we have done UA and urine culture was negative for any bacterial growth. We have done a trial of fluconazole 1 tablet without movement. She admits to the vaginal pruritus. She denies any other active issues Examination Category Sub-Category Detail Notes Category Not es General Examination GENERAL APPEARANCE: Well dev eloped, well nourished, in no acute distress HEAD: Normocephalic, atrau matic EYES: Pupils equal, round, reactive to light and accommodation, sclera non-icteric EARS: Normal THROAT: Clear NECK/THYROID: Neck supple, full ra nge of motion, no cervical lymphadenopathy HEART: regular rate and rhy thm grade 1/6 systolic murmur at right upper sternal border LUNGS: , clear to auscultat ion bilaterally ABDOMEN: Soft, nontender, non distended, bowel sounds present, normal Negative CVA NEUROLOGIC: Nonfocal, appropriat e motor strength normal upper and lower extremities, sensory exam intact SKIN: melasma is noted on the face. incision is intact EXTREMITIES: Normal PERIPHERAL PULSES: Normal BREASTS: __ MUSCULOSKELETAL: normal MALE GENITOURINARY: __ FEMALE GENITOURINARY: heel cutter in room, [facility] No vaginal discharge, no erythema, or skin changes ORAL CAVITY: Normal Psychiatry Normal OROPHARYNX Normal SINUSES Normal Senior Oracle Database Developer
--- NOTE | 2025-06-16 | EMG_ITS ---
Bilateral median and ulnar motor and sensory studies were performed bilateral radial sensory and median and lateral antecubital brachial sensory studies were performed and paraspinal muscles were tested with a needle. 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
--- OUTSIDE RECORDS SUMMARY | 2025-06-16 10:03 | XMS_ITS | Clinical Summary ---
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 [phone] ER note 01-03-2016 Naproxen Itching 09/08/2024 Medications [...] Ultra2 Meter misc DIRECTED DAILY 4 Active [employer]Touch Ultra Test test strip USE DIRECTED TO [...] Description 05/17/2025 12:03 PM EDT Anesthesia Event [facility] Endoscopy [address] [place] [address] Roman Reardon DO 05/17/2025 11:05 AM EDT - 05/17/2025 11:59 PM EDT Hospital Encounter [facility] Endoscopy [address] [place] [phone] Delroy Poe DO Hard, Shannon, CRNA Walsh, Michael, DO Gastroesophageal reflux disease, unspecified whether esophagitis present Discharge Disposition: Home or Self Care 05/13/2025 11:30 AM EDT - 05/13/2025 11:59 PM EDT Hospital Encounter [facility] CT Scan [address] [place] [address] Cough, unspecified type Discharge Disposition: Home or Self Care 04/28/2025 Telephone Gastroenterology - [place] [address] [facility] 175 [facility] [address] [place] [phone] Delroy Poe DO special procedure 04/10/2025 1:28 PM EDT - 04/10/2025 6:14 PM EDT Emergency [facility] Emergency [address] [place] [phone] Cierra Sow MD Viral URI (Primary Dx) Discharge Disposition: Home or Self Care 04/09/2025 8:16 AM EDT Anesthesia Event [facility] Endoscopy [address] [place] [address] Juanjo Monroe MD 04/08/2025 Telephone Gastroenterology - [place] [address] [facility] 175 [facility] [address] [place] [phone] Delroy Poe DO Special Procedure 03/26/2025 8:21 AM EDT Anesthesia Event [facility] Endoscopy [address] [place] [address] Sunshine Harris MD 03/26/2025 7:39 AM EDT - 03/26/2025 11:59 PM EDT Hospital Encounter [facility] Endoscopy [address] [place] [phone] Delroy Poe DO Spencer, Mark A, MD Gastroesophageal reflux disease, unspecified whether esophagitis present Discharge Disposition: Home or Self Care from Last 3 Months Surgical History Surgery Date Site/Laterality Comments APPENDECTOMY ELBOW SURGERY Left Medical History Medical History Date Comments Diabetes ([facility] V24, [facility] V28) Hypertension Asthma Arthritis Hyperlipidemia [...] 9:30 AM EDT Consult Orthopedic Surgery - [place] [address] [phone] Scooter Ashton, DPM 175 [facility] [address] [place] [address] 07/30/2025 10:50 AM EDT Office Visit Gastroenterology - [address] [facility] [address] [phone] Renetta David PA [address] [address] Health Maintenance Due Date Last Done Comments [...] WITH INR STAT 04/10/2025 1:36 PM EDT [id number], RSV, FLU A AND B QUALITATIVE RT-PCR, [...] Months Results * EGD Anesthesia - MAC; [facility] ENDOSCOPY (05/17/2025 12:19 PM EDT) [...] to BID. Narrative 05/17/2025 12:20 PM EDT [facility] GI Patient Name: Lorin Chin Procedure Date: 05/17/2025 12:00 PM Date of : 1950 Age: 74 Gender: Female Note Status: Finalized Attending MD: Delroy Poe DO, [id number] Procedure Date No Time: 05/17/2025 Procedure: Upper [...] the physician, the nurse, the anesthesiologist, the business account executive and the appliance technician in the pre-procedure area in the [...] for histology. Wide Area Transepithelial Sampling (WATS-3D Roby Biopsy) was performed for histology and samples [...] was normal. Procedure Code(s): --- Professional --- 50808, Esophagogastroduodenoscopy, flexible, transoral; with removal of tumor(s), polyp(s), or other lesion(s) by snare technique 51311, 59, Esophagogastroduodenoscopy, flexible, transoral; with biopsy, single or multiple Diagnosis Code(s): --- Professional --- K22.89, Other specified disease of esophagus K92.2, Gastrointestinal hemorrhage, unspecified K31.7, Polyp of stomach and duodenum R12, Heartburn CPT copyright 2020 [employer]. All rights reserved. The codes documented in this report are preliminary and upon clin nurse review may be revised to meet current compliance requirements. DELROY Poe DO 05/17/2025 12:20:41 PM This report has been signed electronically.Delroy Poe DO Number of Addenda: 0 Note Initiated On: 05/17/2025 12:00 PM Scope In: Scope Out: Endoscopy Department at [facility] - [address] [place] [phone] Procedure Note Delroy Poe DO - 05/17/2025 [facility] GI Patient Name: Lorin Chin Procedure Date: 05/17/2025 12:00 PM Date of : 1950 Age: 74 Gender: Female Note Status: Finalized Attending MD: Delroy Poe DO, [id number] Procedure Date No Time: 05/17/2025 Procedure: Upper [...] the physician, the nurse, the anesthesiologist, the business account executive and thetechnician in the pre-procedure area in [...] cold forcepsfor histology. Wide Area Transepithelial Sampling(WATS-3D Roby Biopsy) was performed for histology andsamples sent [...] was normal. Procedure Code(s): --- Professional --- 71782, Esophagogastroduodenoscopy, flexible, transoral; with removal of tumor(s), polyp(s), or other lesion(s) by snare technique 45512, 59, Esophagogastroduodenoscopy, flexible, transoral; with biopsy, single or multiple Diagnosis Code(s): --- Professional --- K22.89, Other specified disease of esophagus K92.2, Gastrointestinal hemorrhage, unspecified K31.7, Polyp of stomach and duodenum R12, Heartburn CPT copyright 2020 [employer]. All rights reserved. The codes documented in this report are preliminary and upon clin nurse reviewmay be revised to meet current compliance requirements. DELROY Poe DO 05/17/2025 12:20:41 PM This report has been signed electronically.Delroy Poe DO Number of Addenda: 0 Note Initiated On: 05/17/2025 12:00 PM Scope In: Scope Out: Endoscopy Department at [facility] - [address] [place] [phone] IMPRESSION: - Z-line irregular, 36 cm from [...] no dysplasia are identified. 9:23 AM T [facility] Gross Description A. Gastric, Body, [...] piece, multiple levels. TS 9:23 AM EDT [facility] Disclaimer NOTE: The immunohistochemical tests and in situ hybridization tests were developed and their performance characteristics were determined by [facility]ology [facility]. They have not been [...] fixed and paraffin embedded. 9:23 AM EDT [facility] Tissue Gastric corpus structure / Unknown 05/17/2025 12:13 PM EDT 05/17/2025 1:46 PM EDT Tissue specimen (specimen) Esophageal structure / Unknown 05/17/2025 12:14 PM EDT 05/17/2025 1:46 PM EDT Tissue specimen (specimen) Pyloric antrum structure / Unknown 05/17/2025 12:15 PM EDT 05/17/2025 1:46 PM EDT us Delroy Poe DO LAB PATHOLOGY ORDERABLES Final R esult [facility] [address] [place] [address], * CT Chest wo Contrast (05/13/2025 12:20 [...] Signed Date: 05/13/2025 15:05 ET Workstation ID: [id number] Transcribed By: Self Edit Transcribed Date: 05/13/2025 15:00 ET Narrative 05/13/2025 3:05 PM EDT INDICATION: Cough TECHNIQUE: CT scan of the chest obtained without contrast. Scanner: [employer] 64 slice VCT Dose reduction technique: ASIR [...] of the chest obtained without contrast. Scanner: [employer] 64 slice VCT Dose reduction technique: ASIR [...] Signed Date: 05/13/2025 15:05 ET Workstation ID: [id number] Transcribed By: Self Edit Transcribed Date: 05/13/2025 15:00 ET us Vaughn MADERA IM CT PROCEDURES Final Res ult * ECG-Annotated (04/14/2025) Provider Onbase ECG ORDERABLES Final Result * Troponin I high sensitivity (04/10/2025 2:46 PM EDT) Only the most recent of2 resultswithin the time period is included. [facility] High Sensitivity Troponin I 26 <=54 ng/L LAB CHEMISTRY METHOD 04/10/2025 4:09 PM EDT [facility] Blood Venous blood specimen / Unknown Venipuncture / Unknown 04/10/2025 2:46 PM EDT 04/10/2025 3:38 PM EDT Narrative [facility] - 04/10/2025 4:09 PM EDT High levels of biotin in samples may falsely decrease hsTroponin values. Use caution when interpreting hsTroponin results in patients taking biotin who exhibit renal impairment (eGFR <60) or in patients taking more than 20 mg/day of biotin. us Cierra Sow MD LAB BLOOD ORDERABLES Final Resul t [facility] [address] [place] [address], * ECG 12 lead (04/10/2025 2:33 PM EDT) Only the most recent of2 resultswithin the time period is included. [facility] Ventricular Rate ECG 63 BPM GEMUSE Atrial Rate 63 BPM GEMUSE P-R Interval 186 ms GEMUSE QRS Duration 100 ms GEMUSE Q-T Interval 404 ms GEMUSE QTc 413 ms GEMUSE P Wave [place] 15 degrees GEMUSE R [place] -23 degrees GEMUSE T [place] 71 degrees GEMUSE ECG Interpretation Normal sinus [...] Signed Date: 04/10/2025 14:33 ET Workstation ID: [id number] Transcribed By: Self Edit Transcribed Date: 04/10/2025 [...] Signed Date: 04/10/2025 14:33 ET Workstation ID: [id number] Transcribed By: Self Edit Transcribed Date: 04/10/2025 14:33 ET us Cierra Sow MD IMG XR PROCEDURES Final Result * Prothrombin time with INR (04/10/2025 1:36 PM EDT) [facility] Protime 12.3 10.6 - 13.9 sec LAB COAGULATION METHOD 04/10/2025 2:48 PM EDT [facility] INR 1.0 LAB COAGULATION METHOD 04/10/2025 2:48 PM EDT [facility] Blood Venous blood specimen / Unknown Venipuncture / Unknown 04/10/2025 1:36 PM EDT 04/10/2025 2:33 PM EDT us Ezequiel Dennis DO LAB BLOOD ORDERABLES Final Res ult [facility] [address] [place] [address], [place] [phone] * [id number], RSV, Influenza A and B qualitative RT-PCR (04/10/2025 1:25 PM EDT) [facility] Influenza A PCR Not Detected Not Detected LAB MICROBIOLOGY METHOD 04/10/2025 3:31 PM EDT [facility] Influenza B PCR Not Detected Not Detected LAB MICROBIOLOGY METHOD 04/10/2025 3:31 PM EDT [facility] RSV PCR Not Detected Not Detected LAB MICROBIOLOGY METHOD 04/10/2025 3:31 PM EDT [facility] SARS COV-2 Not Detected Not Detected LAB MICROBIOLOGY METHOD 04/10/2025 3:31 PM EDT [facility] Swab Both anterior nares / Unknown Non-blood Collection / Unknown 04/10/2025 1:25 PM EDT 04/10/2025 2:35 PM EDT Narrative [facility] - 04/10/2025 3:31 PM EDT Disclaimer: Testing was performed using the [employer] GeneXpert Xpress SARS-CoV-2 _Flu_RSV PLUS PCR assay. [...] for Healthcare providers can be found at https://www.fda.gov/media/107058/download. Fact sheet for Healthcare patients can be found at https://www.fda.gov/media/326348/download. Ezequiel Dennis DO LAB MICROBIOLOGY - GENERAL ORD ERABLES Final Result [facility] [address] [place] [address], * (ABNORMAL) CBC auto differential (04/10/2025 1:21 PM EDT) WBC 7.2 4.8 - 10.8 K/mcL LAB HEMETOLOGY METHOD 04/10/2025 2:49 PM EDT [facility] RBC 5.20(H) 3.80 - 4.80 M/mcL LAB HEMETOLOGY METHOD 04/10/2025 2:49 PM EDT [facility] Hemoglobin 11.2(L) 11.5 - 16.0 g/dL LAB HEMETOLOGY METHOD 04/10/2025 2:49 PM EDT [facility] Hematocrit 36.6 35.0 - 47.0 % LAB HEMETOLOGY METHOD 04/10/2025 2:49 PM EDT [facility] MCV 70.7(L) 79.0 - 98.0 FL LAB HEMETOLOGY METHOD 04/10/2025 2:49 PM EDT [facility] MCH 21.6(L) 27.0 - 32.0 pcg LAB [facility]OLOGY [facility] M[facility]C 30.6(L) 32.0 - 37.0 g/dL LAB HEMETOLOGY METHOD 04/10/2025 2:49 PM EDT [facility] RDW 17.3(H) 11.0 - 15.0 % LAB HEMETOLOGY METHOD 04/10/2025 2:49 PM EDT [facility] Platelets 250 130 - 400 K/mcL LAB HEMETOLOGY METHOD 04/10/2025 2:49 PM [facility] MPV 11.5(H) 7.0 - 11.0 FL LAB HEMETOLOGY METHOD 04/10/2025 2:[facility] PM [facility] NRBC 0.0 <1.0 % LAB HEMETOLOGY METHOD 04/10/2025 2:49 PM [facility] NRBC Absolute 0.00 <0.10 K/mcL LAB HEMETOLOGY METHOD 04/10/2025 2:49 PM [facility] Neutrophils Relative 62.8 % LAB HEMETOLOGY METHOD 04/10/2025 2:49 PM [facility] Lymphocytes Relative 17.3 % LAB HEMETOLOGY METHOD 04/10/2025 2:49 PM [facility] Monocytes Relative 11.5 % LAB [facility]EMETOLOGY METHOD 04/10/2025 2:49 PM [facility] Eosinophils Relative 7.3 % LAB HEMETOLOGY METHOD 04/10/2025 2:49 PM [facility] Basophils Relative 0.7 % LAB HEMETOLOGY METHOD 04/10/2025 2:49 PM EDT [facility] Immature Granulocytes Relative 0.4 % LAB HEMETOLOGY METHOD 04/10/2025 2:49 PM EDT [facility] Neutrophils Absolute 4.50 1.50 - 7.00 K/mcL LAB HEMETOLOGY METHOD 04/10/2025 2:49 PM EDT [facility] Lymphocytes Absolute 1.24 1.00 - 5.00 K/mcL LAB HEMETOLOGY METHOD 04/10/2025 2:49 PM EDT [facility] Monocytes Absolute 0.82 0.20 - 1.00 K/mcL LAB HEMETOLOGY METHOD 04/10/2025 2:49 PM EDT [facility] Eosinophils Absolute 0.52(H) 0.00 - 0.50 K/mcL LAB HEMETOLOGY METHOD 04/10/2025 2:49 PM EDT [facility] Basophils Absolute 0.05 0.00 - 0.20 K/mcL LAB HEMETOLOGY METHOD 04/10/2025 2:49 PM EDT [facility] Immature Granulocytes Absolute 0.03 0.00 - 0.03 K/mcL LAB HEMETOLOGY METHOD 04/10/2025 2:49 PM EDT [facility] Blood Venous blood specimen / Unknown Venipuncture / Unknown 04/10/2025 1:21 PM EDT 04/10/2025 2:34 PM EDT us Cierra Sow MD LAB BLOOD ORDERABLES Final Resul t [facility] [address] [place] [address], * B-type natriuretic peptide (04/10/2025 1:21 PM EDT) BNP 70 <=100 pcg/mL LAB CHEMISTRY METHOD 04/10/2025 3:27 PM EDT [facility] Blood Venous blood specimen / Unknown Venipuncture / Unknown 04/10/2025 1:21 PM EDT 04/10/2025 2:34 PM EDT us Cierra Sow MD LAB BLOOD ORDERABLES Final Resul t Performing Organization Address [facility]/ZIP Co de Phone Number [facility] [address] [place] [address], [place] [phone] * Magnesium (04/10/2025 1:21 PM EDT) Pathologist [facility] Magnesium 2.2 1.9 - 2.6 mg/dL LAB CHEMISTRY METHOD 04/10/2025 3:01 PM EDT [facility] Blood Venous blood specimen / Unknown Venipuncture / Unknown 04/10/2025 1:21 PM EDT 04/10/2025 2:34 PM EDT us Cierra Sow MD LAB BLOOD ORDERABLES Final Resul t Performing Organization Address [facility] Co de Phone Number [facility] [address] [place] [address], [place] [phone] * Lipase (04/10/2025 1:21 PM EDT) Pathologist [facility] Lipase 44 13 - 75 unit/L LAB CHEMISTRY METHOD 04/10/2025 3:01 PM EDT [facility] Blood Venous blood specimen / Unknown Venipuncture / Unknown 04/10/2025 1:21 PM EDT 04/10/2025 2:34 PM EDT us Cierra Sow MD LAB BLOOD ORDERABLES Final Resul t Performing Organization Address City/[facility]/ZIP Co de Phone Number [facility] [address] [place] [address], [place] [phone] * (ABNORMAL) Comprehensive metabolic panel (04/10/2025 1:21 PM EDT) [facility] Sodium 143 133 - 145 mmol/L LAB CHEMISTRY METHOD 04/10/2025 3:01 PM [facility] Potassium 4.0 3.5 - 5.5 mmol/L LAB CHEMISTRY METHOD 04/10/2025 3:01 PM [facility] Chloride 111(H) 96 - 110 mmol/L LAB CHEMISTRY METHOD 04/10/2025 3:01 PM [facility] CO2 28 21 - 32 mmol/L LAB CHEMISTRY METHOD 04/10/2025 3:01 PM [facility] Anion Gap 4 3 - 11 LAB CHEMISTRY METHOD 04/10/2025 3:01 PM [facility] Glucose 101(H) 70 - 100 mg/dL LAB CHEMISTRY METHOD 04/10/2025 3:01 PM [facility] BUN 12 5 - 25 mg/dL LAB CHEMISTRY METHOD 04/10/2025 3:01 PM [facility] Creatinine 0.72 0.50 - 1.10 mg/dL LAB CHEMISTRY METHOD 04/10/2025 3:01 PM [facility] eGFR 88 >=60 mL/min/1. 73m2 LAB CHEMISTRY METHOD 04/10/2025 3:01 PM [facility] Comment:Calculation based on the Chronic Kidney Disease Epidemiology Collaboration (CKD-EPI) equation refit without adjustment for race. BUN/Creatinine Ratio 16.7 LAB CHEMISTRY METHOD 04/10/2025 3:01 PM [facility] Calcium 9.0 8.5 - 10.5 mg/dL LAB CHEMISTRY METHOD 04/10/2025 3:01 PM [facility] AST (SGOT) 32 10 - 42 unit/L LAB CHEMISTRY METHOD 04/10/2025 3:01 PM [facility] ALT (SGPT) 28 10 - 60 unit/L LAB CHEMISTRY METHOD 04/10/2025 3:01 PM EDT [facility] Alkaline Phosphatase 92 42 - 121 unit/L LAB CHEMISTRY METHOD 04/10/2025 3:01 PM EDT [facility] Total Protein 6.5 6.0 - 8.0 g/dL LAB CHEMISTRY METHOD 04/10/2025 3:01 PM EDT [facility] Albumin 3.4 3.2 - 5.0 g/dL LAB CHEMISTRY METHOD 04/10/2025 3:01 PM EDT [facility] Total Bilirubin 0.2 0.0 - 1.4 mg/dL LAB CHEMISTRY METHOD 04/10/2025 3:01 PM EDT [facility] Blood Venous blood specimen / Unknown Venipuncture / Unknown 04/10/2025 1:21 PM EDT 04/10/2025 2:34 PM EDT Cierra Sow MD LAB BLOOD ORDERABLES Final Resul t [facility] [address] [place] [address], from Last 3 Months Insurance [employer] MEDICARE MEDICAID - [place] Care Teams Wood Lather Relationship Specialty Start Date End Date Jennifer Patterson MD [address] [place] [address] PCP - General Internal Medicine 12/23/24
== END 2025-06-16 09:35 | disposition home or self-care (01) ==
LOC: HO.NEURO 09:34
PROVIDERS: PCP Hospitalist; Visit Provider Psychiatry & Neurology Neurology
DX: G56.03 Carpal tunnel syndrome, bilateral upper limbs (principal)
CPT/HCPCS: 95886; 95913

== ENCOUNTER → 2025-06-16 09:45 | Outpatient (BNV) | payer MEDICARE, SELFPAY | PROVIDERS: PCP Hospitalist; Visit Provider Psychiatry & Neurology Neurology | DX: G56.21 Lesion of ulnar nerve, right upper limb (principal) | CPT/HCPCS: 95886; 95913 ==

== ENCOUNTER 2025-06-22 10:10 | Outpatient (AMB) | payer MEDICARE, SELFPAY ==
[2025-06-22 10:15] VITALS: BMI 29.5
--- NOTE | 2025-06-22 10:15 | A.OFFVIS_ITS ---
Vital Signs 06/22/25 10:15 Height 5 ft 4 in Weight 172 lb BMI 29.5 Intake Visit Reasons: PO LT SF mass exc 06/07/25 AR Intake Note: Lorin is a 74 year old right hand dominant female who presents today post- operatively status post left small finger pad mass excision, DOS: 06/07/[address] Murphy. Patient reports it is a bit sore around the incision. Denies numbness or tingling. She continues taking Tylenol PRN with relief. Sutures removed in office and steri strips applied. Allergies esomeprazole Allergy (Severe, Verified 06/22/25 10:18) Itching lisinopril Allergy (Verified 06/22/25 10:16) Itching HPI HPI PO LT SF mass exc 06/07/25 AR: Details: Lorin is a 74 year old right hand dominant female who presents today post- operatively status post left small finger pad mass excision, DOS: 06/07/[address] Murphy. Patient reports it is a bit sore around the incision. Denies numbness or tingling. She continues taking Tylenol PRN with relief. Sutures removed in office and steri strips applied. PFSH Medical History (Updated 06/02/25 @ 15:02 by Ben Dominguez) Left elbow fracture Appendicitis Social History (Updated 06/02/25 @ 14:56 by Amisha Wills [facility]) Current occupational status: retired Current occupation: rt hand Review of Systems Const All systems reviewed & are unremarkable except as noted in HPI and below Physical Exam Vital Signs: BMI result Body Mass Index 29.5 Const General: cooperative, healthy appearing and no acute distress Orientation/consciousness: patient oriented x3 HEENT Head: Yes normocephalic and Yes atraumatic Eyes EOM: EOMs intact bilaterally Resp Effort & Inspection: normal respiratory effort and able to speak in complete sentences Cardio Jugular venous distension: no JVD Skin General skin exam: turgor normal Rashes: no rashes Neuro General: patient oriented x3 Extrem Other: Evaluation of Left Upper Extremity: The patient is alert, oriented, and in no acute distress Neuro: Median, Ulnar, Radial nerves motor and sensory intact and sensation is normal to the tips of all digits Vascular: Cap refill brisk ROM: She can make a fist and extend all her digits, with encouragement No locking or catching Skin: Incision site noted on the volar pad of the left small finger Sutures in place No lacerations or abrasions. General: No Ecchymosis. No Erythema or evidence of infection. Psych Appearance: grossly normal Affect: normal affect Attitude: cooperative Assessment & Plan Assessment & Plan (1) Mass of finger of left hand: Code(s): R22.32 - Localized swelling, mass and lump, left upper limb Category: Medical (2) Diabetes mellitus: Code(s): E11.9 - Type 2 diabetes mellitus without complications Category: Medical Plan 1. 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
--- OUTSIDE RECORDS SUMMARY | 2025-06-22 11:26 | XMS_ITS | Patient Health Record ---
Author Organization [facility] Address [address] [place] [address] Care Team Providers Care Flux Core Welder Name Role Phone ERICH REYES Primary Care Provider [phone] Vaughn Stiles Unavailable [phone] Allergies Allergen (clinical drug ingredient) Drug/Non Drug Allergy documented on EMR Reaction Allergy Type Onset Date Status lisinopril Lisinopril swelling of lips Drug Allergy Active Results Component Value Reference Range Notes TISSUE EXAM Reviewed date:05/19/2025 05:47:31 PM Interpretation: [...] and their performance characteristics were determined by [facility]. They have not been [...] high complexity clinical laboratory testing. (controls appropriate) Albumin/Creatinine Ratio,Uri [id number] Reviewed date:07/24/2024 04:36:43 PM Interpretation: Performing Lab:Alexis Obando, [address] [place] [address], [place], Phone - [phone], Director - MDJodry Notes/Report: Creatinine, Urine 123.4 Not Estab. mg/dL Albumin, Urine 14.2 Not Estab. ug/mL Alb/Creat Ratio 12 0-29 mg/g creat Normal: 0 - 29 Moderately increased: 30 - 300 Severely increased: >300 Comp. Metabolic Panel (14)-3 [id number] Reviewed date:07/24/2024 04:36:37 PM Interpretation: Performing Lab:Alexis Obando, [address] [facility], Phone - [phone], Director - MDJodry Notes/Report: Glucose 99 70-99 mg/dL BUN 15 [...] 0-40 IU/L ALT (SGPT) 17 0-32 IU/L Lipid Panel-[id number] Reviewed date:07/24/2024 04:36:35 PM Interpretation: Performing Lab:Alexis Obando, [address] [facility], [place], Phone - [phone], Director - MDJodry Notes/Report: Cholesterol, Total 134 100-199 mg/dL Triglycerides 113 0-149 mg/dL HDL Cholesterol 48 >39 mg/dL VLDL Cholesterol Lui 20 5-40 mg/dL LDL Chol Calc (NIH) 66 0-99 mg/dL CT CHEST WO CONTRAST Reviewed date:05/20/2025 10:44:02 AM Interpretation: Performing Lab: Notes/Report: Note See Note [facility], a member of [employer] Patient Name: LORIN CHIN Date of : 1950 Reason for Exam: cough Exam Date: 05/13/2025 [id number] EST Report Status: Final Ordering Provider: VAUGHN STILES PCP: ERICH REYES INDICATION: Cough TECHNIQUE: CT scan o f the chest obtained without contrast. Scanner: Turbinepe ed 64 slice VCT Dose reduction techn [...] Signed Date: 025 15:05 ET Workstation ID: [id number] Transcribed By: Self Edit Transcribed Date: 05/13/2025 15:00 ET Lipid Panel-[id number] Reviewed date:05/25/2025 12:04:40 PM Interpretation: Performing Lab:Alexis Obando, [address], [place], Phone - [phone], Director - Chucho Notes/Report: Cholesterol, Total 158 100-199 mg/dL Triglycerides 208 0-149 mg/dL HDL Cholesterol 39 >39 mg/dL VLDL Cholesterol Lui 35 5-40 mg/dL LDL Chol Calc (NIH) 84 0-99 mg/dL Urine Culture, Routine-[id number] Reviewed date:05/25/2025 10:57:28 AM Interpretation: Performing Lab:[facility] Glass, [address], [address], [place], Phone - [phone], Director - [facility] Notes/Report: Clinical Information:SRC: URINE Clinical Information:SRC: URINE Urine Culture, Routine Final report Result 1 Culture shows less than 10,000 colony forming units of bacteria per milliliter of urine. This colony count is not generally considered to be clinically significant. Hemoglobin [id number] Reviewed date:05/25/2025 10:51:33 AM Interpretation: Performing Lab:[facility], [address] [facility], Phone - [phone], Director - Chucho Notes/Report: Hemoglobin A1c 7.7 4.8-5.6 % . Prediabetes: 5.7 - 6.4 Diabetes: >6.4 Glycemic control for adults with diabetes: <7.0 H. pylori Stool Ag, [id number] Reviewed date:12/22/2024 08:08:32 AM Interpretation: Performing Lab:[facility], [address] [place] [address], Phone - [phone], Director - Chucho Notes/Report: Clinical Information:SRC:ST H. pylori Stool Ag, EIA Negative Negative Hgb A1c with eAG Estimation- [id number] Reviewed date:07/24/2024 04:36:33 PM Interpretation: Performing Lab:[facility], [address] [place] [address], [place], Phone - [phone], Director - Chucho Notes/Report: Hemoglobin A1c 7.0 4.8-5.6 % . Prediabetes: 5.7 - 6.4 Diabetes: >6.4 Glycemic control for adults with diabetes: <7.0 Estim. Avg Glu (eAG) 154 Ambig Abbrev CMP14 Default A hand-written panel/profile was received from your office. In accordance with the [facility] Ambiguous Test Code Policy dated May 2003, we have completed your order by using the closest currently or formerly recognized AMA panel. We have assigned Comprehensive Metabolic Panel (14), Test Code #120408 to this request. If this is not the testing you wished to receive on this specimen, please contact the [facility] Client Inquiry/Technical Services Department to clarify the test order. We appreciate your business. Albumin/Creatinine Ratio,i ne-[id number] Reviewed date:01/14/2025 07:48:49 AM Interpretation: Performing Lab:[facility] [place], [address] [place], [place] [address] [place], Phone - [phone], Director - MDArielledry Notes/Report: Creatinine, Urine 90.9 Not Estab. mg/dL Albumin, Urine <3.0 Not Estab. ug/mL Alb/Creat Ratio <3 0-29 mg/g creat Normal: 0 - 29 Moderately increased: 30 - 300 Severely increased: >300 Lipid Panel-[id number] Reviewed date:01/14/2025 07:48:52 AM Interpretation: Performing Lab:[facility] [place], [email or web address] [facility] [place], Phone - [phone], Director - MDJodry Notes/Report: Cholesterol, Total 183 100-199 mg/dL Triglycerides 135 0-149 mg/dL HDL Cholesterol 52 >39 mg/dL VLDL Cholesterol Lui 24 5-40 mg/dL LDL Chol Calc ([facility]) 107 0-99 mg/dL Comp. Metabolic Panel (14)-3 [id number] Reviewed date:01/14/2025 07:48:56 AM Interpretation: Performing Lab:[facility] [place], [email or web address] [facility] [place], Phone - [phone], Director - MDMary Janey Notes/Report: Glucose 96 70-99 mg/dL BUN 12 [...] IU/L ALT (SGPT) 14 0-32 IU/L Hemoglobin [id number] Reviewed date:01/14/2025 07:48:59 AM Interpretation: Performing Lab:[facility] [place], [address] [facility], Phone - [phone], Director - [place]o Notes/Report: Hemoglobin A1c 7.0 4.8-5.6 % . Prediabetes: 5.7 - 6.4 Diabetes: >6.4 Glycemic control for adults with diabetes: <7.0 MR SHOULDER WO CONTRAST LEFT Reviewed date:11/16/2024 11:11:04 AM Interpretation: Performing Lab: Notes/Report: Note See Note [facility], a member of [employer] Patient Name: LORIN CHIN Date of : 1950 Reason for Exam: PAIN Exam Date: 11/09/2024 [id number] EST Report Status: Final Ordering Provider: MAYELA [...] Signed Date: 025 13:15 ET Workstation ID: [id number] Transcribed By: Self Edit Transcribed Date: 11/12/2024 12:59 ET Reason For Referral Reason Evaluation and manag ement Diagnosis 1 Accident due to [facility] anical fall without injury, subsequent encounter (W19.XXXD) Referral Organization [facility] Referring Provider First Name Vaughn Referring Provider Last Name Linesy Referred Provider Specialty Physical The rapist General Notes Referral sent to [facility] in [place] ([address] [place] [address] ) - Office will call patient for scheduling.CassandraGuardado, [place] 09/10/2024 04:32:39 PM > Referral Priority Routine Reason [facility], she w as seen by their department but need a referral Diagnosis 1 Other cyst of bone, left hand (M85.642) Referral Organization [facility] Referring Provider First Name Vaughn Referring Provider Last Name Linsey Referred Provider Specialty Hand Surgery General Notes Referral faxed to [facility]. Please call patient to schedule.Moris Christy 12/25/2024 04:55:22 PM > Referral Priority Routine Reason significant tear of 1 of the rotator cuff muscles and tendinitis along with osteoarthritis Diagnosis 1 Pain in left shoulde r (M25.512) Diagnosis 2 Unspecified osteoart hritis, unspecified site (M19.90) Referral Organization [facility] Referring Provider First Name ERICH Referring Provider Last Name AMY Referring Provider Speciality Internal M edicine Referred Provider Specialty Orthopedic S urgery General Notes Referral faxed to [facility]. Please call patient to schedule appointment.Jaison Crystal 11/16/2024 11:12:23 AM > Referral Priority Routine Reason [facility]-Please evaluate and treat Diagnosis 1 Other bursal cyst, u nspecified hand (M71.349) Referral Organization [facility] Referring Provider First Name Vaughn Referring Provider Last Name Linsey Referred Provider Specialty Hand Surgery General Notes Referral faxed to [facility]. Please call patient to schedule.Moris Christy 12/25/2024 04:46:39 PM > Referral Priority Routine Reason please evaluate and treat Diagnosis 1 Gastro-esophageal re flux disease without esophagitis (K21.9) Referral Organization [facility] Referring Provider First Name Vaughn Referring Provider Last Name Linsey Referred Provider Specialty Gastroentero logy General Notes Referral was faxed t [facility]. Please contact patient for scheduling.Guzman Rashida 12/23/2024 07:59:14 AM > Referral Priority Routine Reason [facility] - Dr Jeniffer [facility] please evaluate and treat Diagnosis 1 Type 2 diabetes basilio itus with foot ulcer (E11.621) Referral Organization [facility] Referring Provider First Name ERICH Referring Provider Last Name AMY Referring Provider Speciality Internal edicine Referred Provider Specialty Podiatry General Notes Referral was faxed t o [facility]. Please contact patient for scheduling.Guzman Rashida 01/08/2025 01:13:21 PM > Referral Priority Routine Reason itching of scalp P lease evaluate and treat Diagnosis 1 Seborrhea capitis (L 21.0) Referral Organization [facility] Referring Provider First Name ERICH Referring Provider Last Name AMY Referring Provider Speciality Internal edicine Referred Provider Specialty Dermatology General Notes Please call the [facility] ent to schedule the appointment, [facility]. Please contact them at [phone], Rayna Pacheco 03/11/2025 04:21:53 PM > Referral Priority Routine Reason Cyst left 5 finger Please evaluate and treat Diagnosis 1 Sebaceous cyst (L72. 3) Referral Organization [facility] Referring Provider First Name ERICH Referring Provider Last Name JOHN Referring Provider Speciality Internal M edicine Referred Provider Specialty Surgery General Notes Please call the [facility]er ent to schedule the appointment, [facility]. Please contact them at [phone], Rayna Pacheco 03/18/2025 03:39:53 PM > Referral Priority Urgent Reason PLEASE EVALUATE AND TREAT Please evaluate and treat Diagnosis 1 Cough (R05.9) Referral Organization [facility] Referring Provider First Name Vaughn Referring Provider Last Name Linsey Referred Provider Specialty Pulmonology General Notes Please call the spenser ent to schedule the appointment, Encounter created and SMS sent to the pt., Rayna Pacheco 04/26/2025 04:35:06 PM > Referral Priority Routine Medications Medication SIG (Take, Route, Frequency, Duration) Notes Start Date End Date Status Albuterol Sulfate HFA 108 (90 Base) MCG/ACT 1 puff as needed Inhalation every 4 hrs; Duration: 30 days Active Ketoconazole 2 % as directed Externally 4 times a week; Duration: 30 days 03/11/2025 Active Fluticasone Propionate 50 MCG/ACT SHAKE LIQUID AND USE 1 SPRAY in EACH NOSTRIL EVERY DAY Nasally Twice a day; Duration: 30 days Active Mounjaro 2.5 MG/0.5ML as directed Subcutaneous weekly; Duration: 30 days 06/15/2025 Active Symbicort 80-4.5 MCG/ACT as directed Inhalation twice a day; Duration: 30 days 04/22/2025 Active hydroCHLOROthiazide 25 MG 1 tablet in th e morning Orally Once a day; Duration: 90 days Active Esomeprazole Magnesium 40 MG 1 capsule 1 /2 to 1 hour before morning meal Orally Once a day; Duration: 30 days 05/20/2025 Active Hydrocortisone Anti-Itch 1 % 1 applicati on Externally Once a day; Duration: 30 days 11/01/2022 Active Atorvastatin Calcium 10 MG TAKE 1 TABLET BY MOUTH EVERY DAY; Duration: 90 days Active ZeroFOXStyle [place] Lite w/Device as directed in vitro daily; Duration: 90 days Active metFORMIN HCl 1000 MG 1 tablet with a me al Orally 2 TIMES A DAY; Duration: 30 day(s) Active Ozempic (0.25 or 0.5 MG/DOSE) 2 MG/3ML once weekly Subcutaneous weekly 05/11/2024 Not-Taking Fluconazole 150 MG 1 tablet Orally daily; Duration: 7 days 05/20/2025 Active Amitriptyline HCl 10 MG 1 tablet at bedt linnea Orally Once a day; Duration: 30 day(s) 11/29/2022 Not-Taking Doxycycline Hyclate 100 MG 1 capsule Ora lly Twice a day; Duration: 7 days 12/15/2024 Not-Taking hydrOXYzine HCl 25 MG 1 tablet as needed Orally Once a day; Duration: 30 days 12/31/2023 Not-Taking ZyrTEC 10 MG 1 tablet Orally Once a day; Duration: 30 day(s) Not-Taking tiZANidine HCl 2 MG TAKE 1 TABLET BY MOUTH THREE TIMES DAILY FOR 7 DAYS NEEDED; Duration: 7 Not-Taking Doxycycline Hyclate 50 MG 1 capsules Ora lly Twice a day; Duration: 7 days 02/19/2024 Not-Taking amLODIPine Besylate 2.5 MG 1 tablet Oral ly Once a day; Duration: 30 days 06/15/2025 Active FreeStyle Lancets - as directed for use with freestyle llite sc daily; Duration: 90 days Active Aspirin 81 MG 1 tablet Orally Once a day Active Ampicillin 500 MG 1 capsule Orally 8 hours; Duration: 5 days 12/31/2023 Not-Taking Mylanta Maximum Strength 400-400-40 MG/5ML 10 mL as needed Orally Twice a day; Duration: 30 days 05/20/2025 Active Ibuprofen 600 MG 1 tablet with food or milk as needed Orally Three times a day; Duration: 30 days Not-Taking Immunizations Vaccine Route Administration Date Status Comme [...] ulcer due to type 2 diabetes mellitus (5815242305040) Type 2 diabetes mellitus with foot ulcer (E11.621) Active confirmed Problem Disorder due to type 2 diabetes mellitus (630726551) Type 2 diabetes mellitus with unspecified complications (E11.8) Active confirmed Problem Hyperlipidemia (74990752) Hyperlipidemia, unspecified (E78.5) Active confirmed Problem Tension-type headache (763710428) Tension-type headache, unspecified, not intractable (G44.209) Active confirmed Problem Essential hypertension (68929204) Essential (primary) hypertension (I10) Active confirmed Problem Seasonal allergic rhinitis (316107050) Other seasonal allergic rhinitis (J30.2) Active confirmed Problem Mild intermittent asthma (762970323) Mild intermittent asthma, uncomplicated (J45.20) Active confirmed Problem Gastro-esophageal reflux disease without esophagitis (438245162) Gastro-esophageal reflux disease without esophagitis (K21.9) Active confirmed Problem Osteoarthritis (335785975) Unspecified osteoarthritis, unspecified site (M19.90) Active confirmed Problem Pain of right knee region (finding) (746418573887417) Pain in right knee (M25.561) Active confirmed Problem Visual hallucinations (51638770) Visual hallucinations (R44.1) Active confirmed Problem Hallucinations (4331306) Hallucinations, unspecified (R44.3) Active confirmed Problem Age-related osteoporosis (425085115) Osteoporosis without current pathological fracture, unspecified osteoporosis type (M81.0) Active confirmed Problem Bilateral carpal tunnel syndrome (2551400847354543 1) Bilateral carpal tunnel syndrome (G56.03) Active confirmed Problem Type II diabetes mellitus without complication (886551130) Controlled type 2 diabetes mellitus without complication, without long-term current use of insulin (E11.9) Active confirmed Vital Signs Heart Rate 75 /min 06/15/2025 Temperature 96.8 degrees Fahrenheit 06/15/2025 Oximetry 97 % 06/15/2025 Blood pressure diastolic 80 mm Hg 06/15/2025 Height 60 in 06/15/2025 Blood pressure systolic 150 mm Hg 06/15/2025 Weight 179.3 lbs 06/15/2025 BMI 35.01 kg/m2 06/15/2025 Encounters Encounter Location Date Provider Diagnosis [facility] [address] [address] 10/29/2024 Ghadeer Mazloum [address] [place] [address] 07/16/2024 ERICH REYES Type 2 diabetes mellitus with unspecified complications E11.8 ; Essential (primary) hypertension I10 ; Hyperlipidemia, unspecified E78.5 and Gastro-esophageal reflux disease without esophagitis K21.[address] [place] [address] 07/30/2024 Ghadeer Mazloum Essential (primary) hypertension I10 and Pruritus, unspecified L29.[address] [place] [address] 09/10/2024 Ghadeer Mazloum Accident due to mechanical fall without injury, subsequent encounter W19.XXXD ; Pain in left shoulder M25.512 ; Pain in left knee M25.562 and Essential (primary) hypertension I10 [address] [place] [address] 10/30/2024 Ghadeer Mazloum Other cyst of bone, left hand M85.[address] [place] [address] 12/15/2024 Ghadeer Mazloum Abdominal bloating R14.0 ; Folliculitis L73.9 ; Mild intermittent asthma, uncomplicated J45.20 and Gastro-esophageal reflux disease without esophagitis K21.[address] [place] [address] 12/22/2024 Ghadeer Mazloum Other bursal cyst, unspecified hand M71.[address] [place] [address] 01/08/2025 ERICH REYES Type 2 diabetes mellitus with unspecified complications E11.8 ; Encounter for general adult medical examination without abnormal findings Z00.00 ; Essential (primary) hypertension I10 ; Hyperlipidemia, unspecified E78.5 and Mild intermittent asthma, uncomplicated J45.[address] [place] [address] 03/11/2025 JUNG GUL Type 2 diabetes mellitus with unspecified complications E11.8 ; Seborrhea capitis L21.0 ; Essential (primary) hypertension I10 ; Hyperlipidemia, unspecified E78.5 and Mild intermittent asthma, uncomplicated J45.20 [facility] [address] [place] [address] 03/18/2025 JUNG JOHN Seborrhea capitis L2 1.0 ; Sebaceous cyst L72.3 ; Type 2 diabetes mellitus with unspecified complications E11.8 ; Essential (primary) hypertension I10 ; Hyperlipidemia, unspecified E78.5 and Mild intermittent asthma, uncomplicated J45.20 [facility] [address] [place] [address] 04/22/2025 Ghadeer Mazloum Cough R05.9 and Essential (primary) hypertension I10 [facility] [address] [place] [address] 05/20/2025 Ghadeer Mazloum Acute gastritis with out bleeding K29.00 ; Bilateral carpal tunnel syndrome G56.03 ; Dysuria R30.0 and Type 2 diabetes mellitus with unspecified complications E11.8 [facility] [address] [place] [address] 06/15/2025 Ghadeer Mazloum Essential (primary) hypertension I10 ; Type 2 diabetes mellitus with unspecified complications E11.8 and Dysuria R30.[address] [place] [address] 07/21/2024 [facility] [address] [place] [address] 07/30/2024 Ghadeer Rafaelloum [address] [place] [address] 09/09/[address] [place] [address] 09/10/[address] [place] [address] 09/16/2024 [facility] [address] [place] [address] 10/14/2024 JUNG GUL [facility] [address] [place] [address] 10/23/2024 JUNG GUL [facility] [address] [place] [address] 10/29/2024 [facility] [address] [place] [address] 11/16/2024 [facility] [address] [place] [address] 12/23/2024 [facility] [address] [place] [address] 12/23/2024 [facility] [address] [place] [address] 12/25/2024 [facility] [address] [place] [address] 12/25/2024 JUN[facility] GUL [facility] [address] [place] [address] 01/08/2025 [facility] [address] [place] [address] 04/08/2025 [facility] [address] [place] [address] 04/12/2025 [facility] [address] [place] [address] 04/22/2025 [facility] [address] [place] [address] 04/26/2025 [facility] [address] [facility] [place] [address] 05/10/2025 [facility] [address] [facility] [address] [place] [address] 05/25/2025 Vaughn Stiles Assessments Encounter Date Diagnosis (ICD Code) Assessment Notes Treatment Notes Treatment Clinical Notes Section Notes 07/16/2024 Type 2 diabetes mellitus with unspecified complications (ICD-10 - E11.8) Mrs. Chin is 73 years old female with hypertension, asthma, seasonal allergies, hyperlipidemia, type 2 diabetes mellitus here for follow up. Plan is as follows: Type II diabetes mellitus. She checks her blood sugar at home and denies hypoglycemic and hyperglycemic episodes. She is on right medications. She has seen an agile test lead for the past year. Foot care discussed. [...] this note under HIPAA compliance and under [place] law mandated for scribe services. Patient aware of service. Verbal consent and written consent taken from the patient. Patient understands and verbalizes understanding of the scribes services and all questions answered regarding scribes services. Patient agrees to use of scribes services. 07/16/2024 Essential (primary) hypertension (ICD-10 - I10) Mrs. Chin is 73 years old female with hypertension, asthma, seasonal allergies, hyperlipidemia, type 2 diabetes mellitus here for follow up. Plan is as follows: Type II diabetes mellitus. She checks her blood sugar at home and denies hypoglycemic and hyperglycemic episodes. She is on right medications. She has seen an agile test lead for the past year. Foot care discussed. [...] this note under HIPAA compliance and under [place] law mandated for scribe services. Patient aware of service. Verbal consent and written consent taken from the patient. Patient understands and verbalizes understanding of the scribes services and all questions answered regarding scribes services. Patient agrees to use of scribes services. 07/30/2024 Essential (primary) hypertension (ICD-10 - I10) Mrs. Chin is 73 years old female with hypertension, [...] the patient but was available upon request 09/10/2024 Pain in left shoulder (ICD-10 - M25.512) Mrs. Chin is 73 years old female with hypertension, [...] the patient but was available upon request 09/10/2024 Accident due to mechanical fall without injury, subsequent encounter (ICD-10 - W19.XXXD) Mrs. Chin is 73 years old female with hypertension, [...] bone, left hand (ICD-10 - M85.642) Mrs. Chin is 74 years old female with hypertension, asthma, seasonal allergies, hyperlipidemia, type 2 diabetes mellitus here for possible cyst on the left fiifth digit. Plan as follows: Cyst on the fifith digit - She was evaluated by [facility]. Xray was performed and per patient it was non-concerning. She states that she needs a referral for cyst drainage. Referral is placed, I have rendered the services for this patient under direct supervision of Dr. Reyes, who did not see the patient but was available phone 12/15/2024 Folliculitis (ICD-10 - L73.9) Mrs. Chin is 74 years old female with hypertension, [...] 12/15/2024 Abdominal bloating (ICD-10 - R14.0) Mrs. Chin is 74 years old female with hypertension, [...] cyst, unspecified hand (ICD-10 - M71.349) Mrs. Chin is 74 years old female with hypertension, [...] as referral has been made sent to [facility] dermatology. I have rendered the services for this patient under direct supervision of Dr. Reyes, who did not see the patient but was available upon request 01/08/2025 Type 2 diabetes mellitus with unspecified [...] She is on statins. She is seeing agile test lead earlier this year. Foot care discussed and [...] proxy.MOLST form discussed with the patient 01/08/2025 Encounter for general adult medical examination [...] She is on statins. She is seeing agile test lead earlier this year. Foot care discussed and [...] She is on statins. She is seeing agile test lead earlier this year. Foot care discussed and [...] She is on statins. She is seeing agile test lead earlier this year. Foot care discussed and [...] She is on statins. She is seeing agile test lead earlier this year. Foot care discussed and [...] is full code and her daughter Mayela Wtason is her healthcare proxy.MOLST form discussed with [...] She is on statins. She is seeing agile test lead earlier this year. Foot care discussed and [...] patient 04/22/2025 Cough (ICD-10 - R05.9) Ms. Chin is a 74-year-old lady with DM type II, hypertension, hyperlipidemia, acid reflux and history of hallucinations, Sickle cell trait and alpha thalassemia trait, seborrheic capitis Is here today for recent ER discharge from [facility]. Patient was seen consecutivelyAt the ER for symptoms of coughing. Plan as follows Cough. She was recently seen at [facility] and [facility] with x-ray negative for cardiopulmonary process. [...] gastritis without bleeding (ICD-10 - K29.00) Ms. Chin is a 74-year-old lady with DM type [...] currently on metformin. She does follow with [facility] test lead on a regular basis. Foot care discussed. [...] carpal tunnel syndrome (ICD-10 - G56.03) Ms. Chin is a 74-year-old lady with DM type [...] currently on metformin. She does follow with agile test lead on a regular basis. Foot care discussed. [...] the patient but was available upon request 06/15/2025 Essential (primary) hypertension (ICD-10 - I10) Ms. Chin is a 74-year-old lady with DM type II, hypertension, hyperlipidemia, acid reflux and history of hallucinations, Sickle cell trait and alpha thalassemia trait, seborrheic capitis Is here Follow-up and a recent cyst removal. Plan as follows Cyst removal. Her incision is intact. It was done at [facility] and she has a follow-up tomorrow for [...] with unspecified complications (ICD-10 - E11.8) Ms. Chin is a 74-year-old lady with DM type II, hypertension, hyperlipidemia, acid reflux and history of hallucinations, Sickle cell trait and alpha thalassemia trait, seborrheic capitis Is here Follow-up and a recent cyst removal. Plan as follows Cyst removal. Her incision is intact. It was done at [facility] and she has a follow-up tomorrow for [...] Despite multiple revisions, Errors may persist 05/20/2025 Dysuria (ICD-10 - R30.0) Ms. Chin is a 74-year-old lady with DM type [...] currently on metformin. She does follow with agile test lead on a regular basis. Foot care discussed. [...] Essential (primary) hypertension (ICD-10 - I10) Ms. Chin is a 74-year-old lady with DM type II, hypertension, hyperlipidemia, acid reflux and history of hallucinations, Sickle cell trait and alpha thalassemia trait, seborrheic capitis Is here today for recent ER discharge from [facility]. Patient was seen consecutivelyAt the ER for symptoms of coughing. Plan as follows Cough. She was recently seen at [facility] and [facility] with x-ray negative for cardiopulmonary process. [...] She is on statins. She is seeing agile test lead earlier this year. Foot care discussed and [...] She is on statins. She is seeing agile test lead earlier this year. Foot care discussed and [...] proxy.MOLST form discussed with the patient 01/08/2025 Essential (primary) hypertension (ICD-10 - I10) [...] She is on statins. She is seeing agile test lead earlier this year. Foot care discussed and [...] healthcare proxy.MOLST form discussed with the patient 12/15/2024 Mild intermittent asthma, uncomplicated (ICD-10 - J45.20) Mrs. Chin is 74 years old female with hypertension, [...] the patient but was available upon request 09/10/2024 Pain in left knee (ICD-10 - M25.562) Mrs. Chin is 73 years old female with hypertension, [...] 07/30/2024 Pruritus, unspecified (ICD-10 - L29.9) Mrs. Chin is 73 years old female with hypertension, [...] the patient but was available upon request 07/16/2024 Hyperlipidemia, unspecified (ICD-10 - E78.5) Mrs. Chin is 73 years old female with hypertension, asthma, seasonal allergies, hyperlipidemia, type 2 diabetes mellitus here for follow up. Plan is as follows: Type II diabetes mellitus. She checks her blood sugar at home and denies hypoglycemic and hyperglycemic episodes. She is on right medications. She has seen an agile test lead for the past year. Foot care discussed. [...] this note under HIPAA compliance and under [place] law mandated for scribe services. Patient aware of service. Verbal consent and written consent taken from the patient. Patient understands and verbalizes understanding of the scribes services and all questions answered regarding scribes services. Patient agrees to use of scribes services. 09/10/2024 Essential (primary) hypertension (ICD-10 - I10) Mrs. Chin is 73 years old female with hypertension, [...] the patient but was available upon request 07/16/2024 Gastro-esophageal reflux disease without esophagitis (ICD-10 - K21.9) Mrs. Chin is 73 years old female with hypertension, asthma, seasonal allergies, hyperlipidemia, type 2 diabetes mellitus here for follow up. Plan is as follows: Type II diabetes mellitus. She checks her blood sugar at home and denies hypoglycemic and hyperglycemic episodes. She is on right medications. She has seen an agile test lead for the past year. Foot care discussed. [...] this note under HIPAA compliance and under [place] law mandated for scribe services. Patient aware of service. Verbal consent and written consent taken from the patient. Patient understands and verbalizes understanding of the scribes services and all questions answered regarding scribes services. Patient agrees to use of scribes services. 12/15/2024 Gastro-esophageal reflux disease without esophagitis (ICD-10 - K21.9) Mrs. Chin is 74 years old female with hypertension, [...] patient but was available upon request 01/08/2025 Hyperlipidemia, unspecified (ICD-10 - E78.5) Lorin [...] She is on statins. She is seeing agile test lead earlier this year. Foot care discussed and [...] proxy.MOLST form discussed with the patient 03/11/2025 Hyperlipidemia, unspecified (ICD-10 - E78.5) Lorin [...] She is on statins. She is seeing agile test lead earlier this year. Foot care discussed and [...] She is on statins. She is seeing agile test lead earlier this year. Foot care discussed and [...] healthcare proxy.MOLST form discussed with the patient 06/15/2025 Dysuria (ICD-10 - R30.0) Ms. Chin is a 74-year-old lady with DM type II, hypertension, hyperlipidemia, acid reflux and history of hallucinations, Sickle cell trait and alpha thalassemia trait, seborrheic capitis Is here Follow-up and a recent cyst removal. Plan as follows Cyst removal. Her incision is intact. It was done at [facility] and she has a follow-up tomorrow for [...] Despite multiple revisions, Errors may persist 05/20/2025 Type 2 diabetes mellitus with unspecified complications (ICD-10 - E11.8) Ms. Chin is a 74-year-old lady with DM type [...] currently on metformin. She does follow with agile test lead on a regular basis. Foot care discussed. [...] patient but was available upon request 01/08/2025 Mild intermittent asthma, uncomplicated (ICD-10 - [...] She is on statins. She is seeing agile test lead earlier this year. Foot care discussed and [...] She is on statins. She is seeing agile test lead earlier this year. Foot care discussed and [...] proxy.MOLST form discussed with the patient 03/18/2025 Hyperlipidemia, unspecified (ICD-10 - E78.5) Lorin [...] She is on statins. She is seeing agile test lead earlier this year. Foot care discussed and [...] She is on statins. She is seeing agile test lead earlier this year. Foot care discussed and [...] 11/01/2022 HEMOGLOBIN A1C WITH EST GLUCOSE 08/21/20 22 LIPID PANEL 08/21/2022 LIPID PANEL 08/10/2022 MICROALBUMIN, URINE 08/10/2022 MICROALBUMIN, URINE 08/21/2022 CT Chest WO 04/22/2025 Hemoglobin [id number] 06/15/2025 Hgb A1c with eAG [id number] 05/11 Comp. Metabolic Panel [id number] 2024 Next Appt Details Provider Name:Vaughn steward, 07/06/2025 10:15:00 AM, [address] [place] [address], [place], [id number], Provider Name:JUNGNEL REYES , 08/19/2025 10:30:00 AM, [address], [place], [address], Provider Name:JUNG A GUL , 01/14/2026 10:00:00 AM, [address], [place], [address], Insurance Providers Payer Name Payer Address Payer Phone Subscriber Number Group Number Insured Name Patient Relationship to Insured Coverage Start Date Coverage End Date [employer] [address] [address] [place] [address] [id number] Lorin Chin Self - patient is the insured [employer] [place] [address] [place] [address] [id number] Lorin Chin Self - patient is the insured Medical (General) History Medical History History ICD Code hypertension DM T 2 Diet control Asthma Seasonal Allergies headaches colon polyps 2021 Surgical History Surgery Date(Month/Year) appendectomy Left elbow fx
--- OUTSIDE RECORDS SUMMARY | 2025-06-22 11:26 | XMS_ITS | Clinical Summary ---
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 [id number] ER note 01-03-2016 Naproxen Itching 09/08/2024 Medications [...] Ultra2 Meter misc DIRECTED DAILY 4 Active [place] [employer] Ultra Test test strip USE DIRECTED TO [...] Description 05/17/2025 12:03 PM EDT Anesthesia Event [facility] Endoscopy [address] [place] [phone] Roman Reardon DO 05/17/2025 11:05 AM EDT - 05/17/2025 11:59 PM EDT Hospital Encounter [facility] Endoscopy [address] [place] [phone] Delroy Poe DO Hard, Shannon, CRNA Walsh, Michael, DO Gastroesophageal reflux disease, unspecified whether esophagitis present Discharge Disposition: Home or Self Care 05/13/2025 11:30 AM EDT - 05/13/2025 11:59 PM EDT Hospital Encounter [facility] CT Scan [address] [place] [phone] Cough, unspecified type Discharge Disposition: Home or Self Care 04/28/2025 Telephone Gastroenterology - [facility] 175 [facility] 175 [facility] [address] [place] [phone] Delroy Poe DO special procedure 04/10/2025 1:28 PM EDT - 04/10/2025 6:14 PM EDT Emergency [facility] Emergency [address] [place] [phone] Cierra Sow MD Viral URI (Primary Dx) Discharge Disposition: Home or Self Care 04/09/2025 8:16 AM EDT Anesthesia Event [facility] Endoscopy [address] [place] [phone] Juanjo Monroe MD 04/08/2025 Telephone Gastroenterology - [place] [facility] 175 [facility] [address] [place] [phone] Delroy Poe DO Special Procedure 03/26/2025 8:21 AM EDT Anesthesia Event [facility] Endoscopy [address] [place] [phone] Sunshine Harris MD 03/26/2025 7:39 AM EDT - 03/26/2025 11:59 PM EDT Hospital Encounter [facility] Endoscopy [address] [place] [phone] Delroy Poe DO Spencer, Mark A, MD Gastroesophageal reflux disease, unspecified whether esophagitis present Discharge Disposition: Home or Self Care from Last 3 Months Surgical History Surgery Date Site/Laterality Comments APPENDECTOMY ELBOW SURGERY Left Medical History Medical History Date Comments Diabetes ([facility] V24, [facility] V28) Hypertension Asthma Arthritis Hyperlipidemia GERD (gastroesophageal [...] 9:30 AM EDT Consult Orthopedic Surgery - [place] [address] [phone] Scooter Ashton, DPM 175 [facility] [address] [place] [address] 07/30/2025 10:50 AM EDT Office Visit Gastroenterology - 299 [facility] [address] [phone] Renetta David PA [address] [address] Health Maintenance Due Date Last Done Comments [...] WITH INR STAT 04/10/2025 1:36 PM EDT [id number], RSV, FLU A AND B QUALITATIVE RT-PCR, [...] Months Results * EGD Anesthesia - MAC; [facility] ENDOSCOPY (05/17/2025 12:19 PM EDT) Only [...] to BID. Narrative 05/17/2025 12:20 PM EDT [facility] GI Patient Name: Lorin Chin Procedure Date: 05/17/2025 12:00 PM Date of : 1950 Age: 74 Gender: Female Note Status: Finalized Attending MD: Delroy Poe DO, [id number] Procedure Date No Time: 05/17/2025 Procedure: Upper [...] the physician, the nurse, the anesthesiologist, the geophysical observer and the microwave technician in the pre-procedure area in the [...] for histology. Wide Area Transepithelial Sampling (WATS-3D [place] Biopsy) was performed for histology and samples [...] was normal. Procedure Code(s): --- Professional --- 59428, Esophagogastroduodenoscopy, flexible, transoral; with removal of tumor(s), polyp(s), or other lesion(s) by snare technique [id number], 59, Esophagogastroduodenoscopy, flexible, transoral; with biopsy, single or multiple Diagnosis Code(s): --- Professional --- K22.89, Other specified disease of esophagus K92.2, Gastrointestinal hemorrhage, unspecified K31.7, Polyp of stomach and duodenum R12, Heartburn CPT copyright 2020 [employer]. All rights reserved. The codes documented in this report are preliminary and upon lead software developer review may be revised to meet current compliance requirements. DELROY Poe DO 05/17/2025 12:20:41 PM This report has been signed electronically.Delroy Poe DO Number of Addenda: 0 Note Initiated On: 05/17/2025 12:00 PM Scope In: Scope Out: Endoscopy Department at [facility] - [address] [place] [phone] Procedure Note Delroy Poe DO - 05/17/2025 [facility] GI Patient Name: Lorin Chin Procedure Date: 05/17/2025 12:00 PM Date of : 1950 Age: 74 Gender: Female Note Status: Finalized Attending MD: Delroy Poe DO, [id number] Procedure Date No Time: 05/17/2025 Procedure: Upper [...] the physician, the nurse, the anesthesiologist, the geophysical observer and thetechnician in the pre-procedure area in [...] cold forcepsfor histology. Wide Area Transepithelial Sampling(WATS-3D [place] Biopsy) was performed for histology andsamples sent [...] was normal. Procedure Code(s): --- Professional --- 43942, Esophagogastroduodenoscopy, flexible, transoral; with removal of tumor(s), polyp(s), or other lesion(s) by snare technique [id number], 59, Esophagogastroduodenoscopy, flexible, transoral; with biopsy, single or multiple Diagnosis Code(s): --- Professional --- K22.89, Other specified disease of esophagus K92.2, Gastrointestinal hemorrhage, unspecified K31.7, Polyp of stomach and duodenum R12, Heartburn CPT copyright 2020 [employer]. All rights reserved. The codes documented in this report are preliminary and upon lead software developer reviewmay be revised to meet current compliance requirements. DELROY Poe DO 05/17/2025 12:20:41 PM This report has been signed electronically.Delroy Poe DO Number of Addenda: 0 Note Initiated On: 05/17/2025 12:00 PM Scope In: Scope Out: Endoscopy Department at [facility] - [address] [place] [phone] IMPRESSION: - Z-line irregular, 36 cm from [...] no dysplasia are identified. 9:23 AM T [facility] Gross Description A. Gastric, Body, [...] piece, multiple levels. TS 9:23 AM EDT [facility] Disclaimer NOTE: The immunohistochemical tests and in situ hybridization tests were developed and their performance characteristics were determined by [facility]. They have not been [...] fixed and paraffin embedded. 9:23 AM EDT [facility] Tissue Gastric corpus structure / Unknown 05/17/2025 12:13 PM EDT 05/17/2025 1:46 PM EDT Tissue specimen (specimen) Esophageal structure / Unknown 05/17/2025 12:14 PM EDT 05/17/2025 1:46 PM EDT Tissue specimen (specimen) Pyloric antrum structure / Unknown 05/17/2025 12:15 PM EDT 05/17/2025 1:46 PM EDT us Delroy Poe DO LAB PATHOLOGY ORDERABLES Final R esult [facility] [address] [place] [address], * CT Chest wo Contrast (05/13/2025 12:20 [...] Signed Date: 05/13/2025 15:05 ET Workstation ID: [id number] Transcribed By: Self Edit Transcribed Date: 05/13/2025 15:00 ET Narrative 05/13/2025 3:05 PM EDT INDICATION: Cough TECHNIQUE: CT scan of the chest obtained without contrast. Scanner: Solar TitanpeFolioDynamix 64 slice VCT Dose reduction technique: ASIR [...] of the chest obtained without contrast. Scanner: Video Blocks 64 slice VCT Dose reduction technique: ASIR [...] Signed Date: 05/13/2025 15:05 ET Workstation ID: [id number] Transcribed By: Self Edit Transcribed Date: 05/13/2025 15:00 ET us Vaughn MADERA IM CT PROCEDURES Final Res ult * ECG-Annotated (04/14/2025) Provider Onbase ECG ORDERABLES Final Result * Troponin I high sensitivity (04/10/2025 2:46 PM EDT) Only the most recent of2 resultswithin the time period is included. [facility] High Sensitivity Troponin I 26 <=54 ng/L LAB CHEMISTRY METHOD 04/10/2025 4:09 PM EDT [facility] Blood Venous blood specimen / Unknown Venipuncture / Unknown 04/10/2025 2:46 PM EDT 04/10/2025 3:38 PM EDT Narrative [facility] - 04/10/2025 4:09 PM EDT High levels of biotin in samples may falsely decrease hsTroponin values. Use caution when interpreting hsTroponin results in patients taking biotin who exhibit renal impairment (eGFR <60) or in patients taking more than 20 mg/day of biotin. us Cierra Sow MD LAB BLOOD ORDERABLES Final Resul t [facility] [address] [place] [address], * ECG 12 lead (04/10/2025 2:33 PM EDT) Only the most recent of2 resultswithin the time period is included. [facility] Ventricular Rate ECG 63 BPM GEMUSE Atrial Rate 63 BPM GEMUSE P-R Interval 186 ms GEMUSE QRS Duration 100 ms GEMUSE Q-T Interval 404 ms GEMUSE QTc 413 ms GEMUSE P Wave [place] 15 degrees GEMUSE R [place] -23 degrees GEMUSE T [place] 71 degrees GEMUSE ECG Interpretation Normal sinus [...] Signed Date: 04/10/2025 14:33 ET Workstation ID: [id number] Transcribed By: Self Edit Transcribed Date: 04/10/2025 [...] Signed Date: 04/10/2025 14:33 ET Workstation ID: [id number] Transcribed By: Self Edit Transcribed Date: 04/10/2025 14:33 ET us Cierra Sow MD IMG XR PROCEDURES Final Result * Prothrombin time with INR (04/10/2025 1:36 PM EDT) [facility] Protime 12.3 10.6 - 13.9 sec LAB COAGULATION METHOD 04/10/2025 2:48 PM EDT [facility] INR 1.0 LAB COAGULATION METHOD 04/10/2025 2:48 PM EDT [facility] Blood Venous blood specimen / Unknown Venipuncture / Unknown 04/10/2025 1:36 PM EDT 04/10/2025 2:33 PM EDT us Ezequiel Dennis DO LAB BLOOD ORDERABLES Final Res ult [facility] [address] [place] [address], [place] [phone] * [id number], RSV, Influenza A and B qualitative RT-PCR (04/10/2025 1:25 PM EDT) [facility] Influenza A PCR Not Detected Not Detected LAB MICROBIOLOGY METHOD 04/10/2025 3:31 PM EDT [facility] Influenza B PCR Not Detected Not Detected LAB MICROBIOLOGY METHOD 04/10/2025 3:31 PM EDT [facility] RSV PCR Not Detected Not Detected LAB MICROBIOLOGY METHOD 04/10/2025 3:31 PM EDT [facility] SARS COV-2 Not Detected Not Detected LAB MICROBIOLOGY METHOD 04/10/2025 3:31 PM EDT [facility] Swab Both anterior nares / Unknown Non-blood Collection / Unknown 04/10/2025 1:25 PM EDT 04/10/2025 2:35 PM EDT Narrative [facility] - 04/10/2025 3:31 PM EDT Disclaimer: Testing was performed using the [employer] GeneXpert Xpress SARS-CoV-2 _Flu_RSV PLUS PCR assay. [...] for Healthcare providers can be found at https://www.fda.gov/media/613521/download. Fact sheet for Healthcare patients can be found at https://www.fda.gov/media/934824/download. Ezequiel Dennis DO LAB MICROBIOLOGY - GENERAL ORD ERABLES Final Result [facility] [address] [place] [address], * (ABNORMAL) CBC auto differential (04/10/2025 1:21 PM EDT) WBC 7.2 4.8 - 10.8 K/mcL LAB HEMETOLOGY METHOD 04/10/2025 2:49 PM EDT [facility] RBC 5.20(H) 3.80 - 4.80 M/mcL LAB HEMETOLOGY METHOD 04/10/2025 2:49 PM EDT [facility] Hemoglobin 11.2(L) 11.5 - 16.0 g/dL LAB HEMETOLOGY METHOD 04/10/2025 2:49 PM EDT [facility] Hematocrit 36.6 35.0 - 47.0 % LAB HEMETOLOGY METHOD 04/10/2025 2:49 PM EDT [facility] MCV 70.7(L) 79.0 - 98.0 FL LAB HEMETOLOGY METHOD 04/10/2025 2:49 PM EDT [facility] MCH 21.6(L) 27.0 - 32.0 pcg LAB HEMETOLOGY METHOD 04/10[facility]2025 [facility] MCHC 30.6(L) 32.0 - 37.0 g/dL LAB HEMETOLOGY METHOD 04/10/2025 2:49 PM EDT [facility] RDW 17.3(H) 11.0 - 15.0 % LAB HEMETOLOGY METHOD 04/10/2025 2:49 PM EDT [facility] Platelets 250 130 - 400 K/mcL LAB HEMETOLOGY METHOD 04/10/2025 2:49 PM [facility] MPV 11.5(H) 7.0 - 11.0 FL LAB HEMETOLOGY METHOD 04/10/2025 2:[facility] NRBC 0.0 <1.0 % LAB HEMETOLOGY METHOD 04/10/2025 2:49 PM [facility] NRBC Absolute 0.00 <0.10 K/mcL LAB HEMETOLOGY METHOD 04/10/2025 2:49 PM [facility] Neutrophils Relative 62.8 % LAB HEMETOLOGY METHOD 04/10/2025 2:49 [facility] Lymphocytes Relative 17.3 % LAB HEMETOLOGY METHOD 04/10/2025 2:49 PM [facility] Monocytes Relative 11.5 % LAB HEMETOLOGY METHOD 04/10/2025 2:49 PM [facility] Eosinophils Relative 7.3 % LAB HEMETOLOGY METHOD 04/10/2025 2:49 PM [facility] Basophils Relative 0.7 % LAB HEMETOLOGY METHOD 04/10/2025 2:49 PM EDT [facility] Immature Granulocytes Relative 0.4 % LAB HEMETOLOGY METHOD 04/10/2025 2:49 PM EDT [facility] Neutrophils Absolute 4.50 1.50 - 7.00 K/mcL LAB HEMETOLOGY METHOD 04/10/2025 2:49 PM EDT [facility] Lymphocytes Absolute 1.24 1.00 - 5.00 K/mcL LAB HEMETOLOGY METHOD 04/10/2025 2:49 PM EDT [facility] Monocytes Absolute 0.82 0.20 - 1.00 K/mcL LAB HEMETOLOGY METHOD 04/10/2025 2:49 PM EDT [facility] Eosinophils Absolute 0.52(H) 0.00 - 0.50 K/mcL LAB HEMETOLOGY METHOD 04/10/2025 2:49 PM EDT [facility] Basophils Absolute 0.05 0.00 - 0.20 K/mcL LAB HEMETOLOGY METHOD 04/10/2025 2:49 PM EDT [facility] Immature Granulocytes Absolute 0.03 0.00 - 0.03 K/mcL LAB HEMETOLOGY METHOD 04/10/2025 2:49 PM EDT [facility] Blood Venous blood specimen / Unknown Venipuncture / Unknown 04/10/2025 1:21 PM EDT 04/10/2025 2:34 PM EDT us Cierra Sow MD LAB BLOOD ORDERABLES Final Resul t [facility] [address] [place] [address], * B-type natriuretic peptide (04/10/2025 1:21 PM EDT) BNP 70 <=100 pcg/mL LAB CHEMISTRY METHOD 04/10/2025 3:27 PM EDT [facility] Blood Venous blood specimen / Unknown Venipuncture / Unknown 04/10/2025 1:21 PM EDT 04/10/2025 2:34 PM EDT us Cierra Sow MD LAB BLOOD ORDERABLES Final Resul t Performing Organization Address [facility]/ZIP Co de Phone Number [facility] [address] [place] [address], [place] [phone] * Magnesium (04/10/2025 1:21 PM EDT) Pathologist [facility] Magnesium 2.2 1.9 - 2.6 mg/dL LAB CHEMISTRY METHOD 04/10/2025 3:01 PM EDT [facility] Blood Venous blood specimen / Unknown Venipuncture / Unknown 04/10/2025 1:21 PM EDT 04/10/2025 2:34 PM EDT us Cierra Sow MD LAB BLOOD ORDERABLES Final Resul t Performing Organization Address [facility] Co de Phone Number [facility] [address] [place] [address], [place] [phone] * Lipase (04/10/2025 1:21 PM EDT) Pathologist [facility] Lipase 44 13 - 75 unit/L LAB CHEMISTRY METHOD 04/10/2025 3:01 PM EDT [facility] Blood Venous blood specimen / Unknown Venipuncture / Unknown 04/10/2025 1:21 PM EDT 04/10/2025 2:34 PM EDT us Cierra Sow MD LAB BLOOD ORDERABLES Final Resul t Performing Organization Address City/[facility]/ZIP Co de Phone Number [facility] [address] [place] [address], [place] [phone] * (ABNORMAL) Comprehensive metabolic panel (04/10/2025 1:21 PM EDT) [facility] Sodium 143 133 - 145 mmol/L LAB CHEMISTRY METHOD 04/10/2025 3:01 PM [facility] Potassium 4.0 3.5 - 5.5 mmol/L LAB CHEMISTRY METHOD 04/10/2025 3:01 PM [facility] Chloride 111(H) 96 - 110 mmol/L LAB CHEMISTRY METHOD 04/10/2025 3:01 PM [facility] CO2 28 21 - 32 mmol/L LAB CHEMISTRY METHOD 04/10/2025 3:01 PM [facility] Anion Gap 4 3 - 11 LAB CHEMISTRY METHOD 04/10/2025 3:01 PM [facility] Glucose 101(H) 70 - 100 mg/dL LAB CHEMISTRY METHOD 04/10/2025 3:01 PM [facility] BUN 12 5 - 25 mg/dL LAB CHEMISTRY METHOD 04/10/2025 3:01 PM [facility] Creatinine 0.72 0.50 - 1.10 mg/dL LAB CHEMISTRY METHOD 04/10/2025 3:01 PM [facility] eGFR 88 >=60 mL/min/1. 73m2 LAB CHEMISTRY METHOD 04/10/2025 3:01 PM [facility] Comment:Calculation based on the Chronic Kidney Disease Epidemiology Collaboration (CKD-EPI) equation refit without adjustment for race. BUN/Creatinine Ratio 16.7 LAB CHEMISTRY METHOD 04/10/2025 3:01 PM [facility] Calcium 9.0 8.5 - 10.5 mg/dL LAB CHEMISTRY METHOD 04/10/2025 3:01 PM [facility] AST (SGOT) 32 10 - 42 unit/L LAB CHEMISTRY METHOD 04/10/2025 3:01 PM [facility] ALT (SGPT) 28 10 - 60 unit/L LAB CHEMISTRY METHOD 04/10/2025 3:01 PM EDT [facility] Alkaline Phosphatase 92 42 - 121 unit/L LAB CHEMISTRY METHOD 04/10/2025 3:01 PM EDT [facility] Total Protein 6.5 6.0 - 8.0 g/dL LAB CHEMISTRY METHOD 04/10/2025 3:01 PM EDT [facility] Albumin 3.4 3.2 - 5.0 g/dL LAB CHEMISTRY METHOD 04/10/2025 3:01 PM EDT [facility] Total Bilirubin 0.2 0.0 - 1.4 mg/dL LAB CHEMISTRY METHOD 04/10/2025 3:01 PM EDT [facility] Blood Venous blood specimen / Unknown Venipuncture / Unknown 04/10/2025 1:21 PM EDT 04/10/2025 2:34 PM EDT Cierra Sow MD LAB BLOOD ORDERABLES Final Resul t [facility] [address] [place] [address], from Last 3 Months Insurance [employer] MEDICARE MEDICAID - [place] Care Teams Street Light Cleaner Relationship Specialty Start Date End Date Jennifer Patterson MD [address] [place] [address] PCP - General Internal Medicine 12/23/24
== END 2025-06-22 10:40 | disposition home or self-care (01) ==
LOC: HO.HOS 10:10
PROVIDERS: PCP Hospitalist
DX: R22.32 Localized swelling, mass and lump, left upper limb (principal); E11.9 Type 2 diabetes mellitus without complications
CPT/HCPCS: 99024

== ENCOUNTER → 2025-06-22 10:10 | Outpatient (BNVA) | payer MEDICARE, SELFPAY | PROVIDERS: PCP Hospitalist | DX: Z48.817 Encounter for surgical aftercare following surgery on the skin and subcutaneous tissue (principal); R22.32 Localized swelling, mass and lump, left upper limb; E11.9 Type 2 diabetes mellitus without complications | CPT/HCPCS: 99212 ==

== ENCOUNTER 2025-09-01 11:15 | Outpatient (AMB) | payer MEDICARE, SELFPAY ==
[2025-09-01 11:20] VITALS: BP 122/66; PULSE 62; O2SAT 98; BMI 29.9
--- NOTE | 2025-09-01 11:20 | MHC.OFFVIS ---
Vital Signs 09/01/25 11:20 Height 5 ft 4 in Weight 174 lb 2 oz BMI 29.9 BP 122/66 Blood Pressure Location Lt brachial Position Sitting Pulse 62 Pulse Source Pulse Oximeter Pulse Oximetry (%) 98 Oxygen Delivery Method Room Air Intake Visit Reasons: Cough Allergies esomeprazole Allergy (Severe, Verified 09/01/25 11:23) Itching lisinopril Allergy (Verified 09/01/25 11:23) Itching HPI HPI Cough: Details: Lorin is pleasant 74 year old female former minimal smoker, with underlying asthma, diabetes, hypertension, sickle cell trait, and alpha thalassemia trait. She was referred by PCP for pulmonary evaluation. She was diagnosed with asthma as an adult, never requiring intubation. She reports over the last few months requiring multiple rounds of prednisone and antibiotics for bronchitis in April and recently treated for pneumonia. For these visits she was seen at [facility] and [facility] as well as an urgent care in [place]. Since completing prednisone/abx this past Saturday, she reports overall improvements, continues with intermittent dyspnea, wheezing and occasional productive cough. She has been using Albuterol MDI PRN, otherwise does not have a daily inhaler. She denies prior h/o recurrent URI. She endorses second hand smoke exposure. Denies any occupational exposures. Endorses seasonal allergies, no recent allergy testing. She reports multiple first degree family members with asthma. [facility] Medical History (Updated 09/06/25 @ 09:44 by Bertha Munguia NP) Left elbow fracture Appendicitis Social History (Updated 09/01/25 @ 11:22 by Adore Ramirez CMA) Patient Tobacco Use Status: Former Tobacco user Current occupational status: retired Current occupation: rt hand Review of Systems Const Denies chills, Denies excessive sweating, Denies fever(s), Denies headache(s) and Denies night sweats Eyes Denies dry eyes, Denies irritation and Denies itchy eyes ENT Reports Normal hearing present, Denies headache(s), Denies nasal congestion, Denies nasal discharge, Denies post nasal drip and Denies sore throat Card Denies chest pain, Denies chest pain at rest, Denies chest pain with activity, Denies claudication, Denies leg edema, Denies dyspnea, Denies orthopnea and Denies paroxysmal nocturnal dyspnea Resp Denies chest congestion, Denies excessive phlegm production, Denies pain on inspiration, Denies pain with cough, Denies dyspnea and Denies stridor Musc Denies myalgias Neuro Reports Normal hearing present and Denies headache(s) Endo Denies excessive sweating Yonny/Lymph Denies lymphadenopathy Aller/Immun Denies itchy eyes and Denies seasonal rhinorrhea Physical Exam Vital Signs: Last Vital Signs Pulse 62 09/01/25 11:20 BP 122/66 09/01/25 11:20 Pulse Ox 98 09/01/25 11:20 Oxygen Delivery Method Room Air 09/01/25 11:20 BMI result Body Mass Index 29.9 Const General: cooperative, healthy appearing, comfortable, no acute distress, well developed and alert Orientation/consciousness: patient oriented x3 Limitations: no limitations HEENT Head: Yes normal to inspection, Yes normocephalic and Yes atraumatic Ears: hearing grossly normal bilaterally and external ears normal Eyes General: appearance normal, both eyes and all related structures Eyelids: Yes eyelids normal Sclerae: sclerae normal EOM: EOMs intact bilaterally Neck Neck: Yes normal visual inspection and Yes no lymphadenopathy Lymphatic: no lymphadenopathy noted Chest Chest palpation & inspection: normal inspection of the chest Resp Effort & Inspection: normal respiratory effort, able to speak in complete sentences, no audible wheezes, no cough, no stridor, not tachypneic, no tripod positioning and no use of accessory muscles Auscultation: clear to auscultation bilaterally Cardio Jugular venous distension: no JVD Rate: regular rate Rhythm: regular rhythm Skin Other: warm, dry General skin exam: no rashes or lesions noted Neuro General: patient oriented x3 Cranial nerves: Yes Normal hearing present Cognition (Neuro): normal cognition Gait exam (Neuro): Normal gait present Extrem General: Yes normal to inspection, Yes capillary refill normal, Yes no clubbing, cyanosis or edema and Yes no pedal edema Psych Appearance: grossly normal and well kempt Speech and movement: Normal speech and movement present and Clear speech present Affect: normal affect Attitude: cooperative Thought process: Normal thought process present Thought content: Normal thought content present Insight: Good insight present (Psych) Judgement: Good judgement present (Psych) Assessment & Plan Assessment & Plan (1) Asthma: Code(s): J45.909 - Unspecified asthma, uncomplicated Category: Medical (2) Environmental allergies: Code(s): Z91.09 - Other allergy status, other than to drugs and biological substances Category: Medical (3) History of recent pneumonia: Code(s): Z87.01 - Personal history of pneumonia (recurrent) Category: Medical Plan Lorin presents for pulmonary evaluation with known history of asthma and two URI requiring abx/prednisone related to bronchitis and PNA April/August. Will attempt to obtain urgent care records. Discussed initiating a daily inhaler which she was agreeable to Arnuity. Discussed the importance of good oral hygiene to prevent thrush. Encouraged use of Albuterol MDI PRN and to monitor symptoms. She is aware to call if symptoms do not improve or worsen. Will send for PFT to assess severity of obstructive defect and CXR to assess resolution of PNA in 4-6 weeks. Patient endorses seasonal allergies, will send for RAST. All questions were answered and patient is in agreement of plan. Will follow up to review results or sooner if needed. Orders: Orders Resp Allergy Profile Region I 09/01/25 Z91.09 - Other allergy status, other than to drugs and biological substances PFT pulmonary function test Today R06.09 - Other forms of dyspnea Immunoglobulin E 09/01/25 Z91.09 - Other allergy status, other than to drugs and biological substances Complete Blood Count Auto Diff 09/01/25 Z91.09 - Other allergy status, other than to drugs and biological substances XR chest 2V 4 Weeks Z87.01 - Personal history of pneumonia (recurrent) Medications: New fluticasone furoate 100 mcg/actuation (Arnuity Ellipta) 1 inh inhalation DAILY 30 ea 3RF Coding Level of Care Code New Pt Level 4 (17229) Diagnoses Asthma J45.909 Environmental allergies Z91.09 History of recent pneumonia Z87.01
--- OUTSIDE RECORDS SUMMARY | 2025-09-01 14:17 | XMS_ITS | Patient Health Record ---
Author Organization [facility] Address [address] [place] [address] Care Team Providers Care Fountain Jerk Name Role Phone ERICH REYES Primary Care Provider Vaughn Stiles Unavailable [phone] Allergies Allergen (clinical drug ingredient) Drug/Non Drug Allergy documented on EMR Reaction Allergy Type Onset Date Status lisinopril Lisinopril swelling of lips Drug Allergy Active Results Component Value Reference Range Notes Lipid Panel-[id number] Reviewed date:05/25/2025 12:04:40 PM Interpretation: Performing Lab:[facility], [address] [facility], Phone - [phone], Director - Chucho Notes/Report: Cholesterol, Total 158 100-199 mg/dL Triglycerides 208 0-149 mg/dL HDL Cholesterol 39 >39 mg/dL VLDL Cholesterol Lui 35 5-40 mg/dL LDL Chol Calc (NIH) 84 0-99 mg/dL Urine Culture, Routine-[id number] 7 Reviewed date:05/25/2025 10:57:28 AM Interpretation: Performing Lab:[facility], [address], [place], Phone - [phone], Director - Rich Notes/Report: Clinical Information:SRC: URINE Clinical Information:SRC: URINE Urine Culture, Routine Final report Result 1 Culture shows less than 10,000 colony forming units of bacteria per milliliter of urine. This colony count is not generally considered to be clinically significant. Hemoglobin [id number] Reviewed date:05/25/2025 10:51:33 AM Interpretation: Performing Lab:[facility], [address] [facility], Phone - [phone], Director - Chucho Notes/Report: Hemoglobin A1c 7.7 4.8-5.6 % . Prediabetes: 5.7 - 6.4 Diabetes: >6.4 Glycemic control for adults with diabetes: <7.0 H. pylori Stool Ag, EIA-[id number] Reviewed date:12/22/2024 08:08:32 AM Interpretation: Performing Lab:[facility] [place], [address] [place] [address], Phone - [phone], Director - Chucho Notes/Report: Clinical Information:SRC:ST H. pylori Stool Ag, EIA Negative Negative Albumin/Creatinine Ratio,Uri ne-[id number] Reviewed date:01/14/2025 07:48:49 AM Interpretation: Performing Lab:[facility] [place], [address] [place] [address], Phone - [phone], Director - Chucho Notes/Report: Creatinine, Urine 90.9 Not Estab. mg/dL Albumin, Urine <3.0 Not Estab. ug/mL Alb/Creat Ratio <3 0-29 mg/g creat Normal: 0 - 29 Moderately increased: 30 - 300 Severely increased: >300 Lipid Panel-[id number] Reviewed date:01/14/2025 07:48:52 AM Interpretation: Performing Lab:[facility] [place], [address] [place] [address], Phone - [phone], Director - Chucho Notes/Report: Cholesterol, Total 183 100-199 mg/dL Triglycerides 135 0-149 mg/dL HDL Cholesterol 52 >39 mg/dL VLDL Cholesterol Lui 24 5-40 mg/dL LDL Chol Calc (NIH) 107 0-99 mg/dL Comp. Metabolic Panel (14)-3 [id number] Reviewed date:01/14/2025 07:48:56 AM Interpretation: Performing Lab:[facility] [place], [address] [place] [address], Phone - [phone], Director - Chucho Notes/Report: Glucose 96 70-99 mg/dL BUN 12 [...] IU/L ALT (SGPT) 14 0-32 IU/L Hemoglobin [id number] Reviewed date:01/14/2025 07:48:59 AM Interpretation: Performing Lab:[facility], [address] [facility], [place], Phone - [phone], Director - Chucho Notes/Report: Hemoglobin A1c 7.0 4.8-5.6 % . Prediabetes: 5.7 - 6.4 Diabetes: >6.4 Glycemic control for adults with diabetes: <7.0 MR SHOULDER WO CONTRAST LEFT Reviewed date:11/16/2024 11:11:04 AM Interpretation: Performing Lab: Notes/Report: Note See Note [facility], a member of [employer] Patient Name: LORIN CHIN Date of : 1950 Reason for Exam: PAIN Exam Date: 11/09/2024 [id number] EST Report Status: Final Ordering Provider: MAYELA [...] Signed Date: 025 13:15 ET Workstation ID: [id number] Transcribed By: Self Edit Transcribed Date: 11/12/2024 12:59 ET Comp. Metabolic Panel (14)-3 [id number] Reviewed date:08/19/2025 10:38:37 AM Interpretation: Performing Lab:[facility], [address] [facility], [place], Phone - [phone], Director - Chucho Notes/Report: Glucose 101 70-99 mg/dL BUN 18 8-27 mg/dL Creatinine 0.84 0.57-1.00 mg/dL eGFR 73 >59 mL/min/1.73 BUN/Creatinine Ratio 21 12-28 Sodium 144 134-144 mmol/L Potassium 4.5 3.5-5.2 mmol/L Chloride 103 96-106 mmol/L Carbon Dioxide, Total 26 20-29 mmol/L Calcium 9.6 8.7-10.3 mg/dL Protein, Total 6.8 6.0-8.5 g/dL Albumin 4.2 3.8-4.8 g/dL Globulin, Total 2.6 1.5-4.5 g/dL Bilirubin, Total 0.2 0.0-1.2 mg/dL Alkaline Phosphatase 98 49-135 IU/L AST (SGOT) 26 0-40 IU/L ALT (SGPT) 17 0-32 IU/L Hemoglobin [id number] Reviewed date:08/19/2025 10:38:30 AM Interpretation: Performing Lab:[facility], [address] [facility], [place], Phone - [phone], Director - Chucho Notes/Report: Hemoglobin A1c 7.0 4.8-5.6 % . Prediabetes: 5.7 - 6.4 Diabetes: >6.4 Glycemic control for adults with diabetes: <7.0 TISSUE EXAM Reviewed date:05/19/2025 05:47:31 PM Interpretation: [...] and their performance characteristics were determined by [facility]. They have not [...] Interpretation: Performing Lab: Notes/Report: Note See Note [facility], a member of [employer] Patient Name: LORIN CHIN Date of : 1950 Reason for Exam: cough Exam Date: 05/13/2025 [id number] EST Report Status: Final Ordering Provider: VAUGHN STILES PCP: ERICH REYES INDICATION: Cough TECHNIQUE: CT scan o f the chest obtained without contrast. Scanner: Novaledpe ed 64 slice VCT Dose reduction techn [...] Signed Date: 025 15:05 ET Workstation ID: [id number] Transcribed By: Self Edit Transcribed Date: 05/13/2025 15:00 ET Reason For Referral Reason Evaluation and manag ement Diagnosis 1 Accident due to mech anical fall without injury, subsequent encounter (W19.XXXD) Referral Organization [facility] Referring Provider First Name Vaughn Referring Provider Last Name Linsey Referred Provider Specialty Physical The rapist General Notes Referral sent to [facility] in [place] ([address] , [place] [address] ) - Office will call patient for scheduling., Jersey Guardado 09/10/2024 04:32:39 PM > Referral Priority Routine Reason [facility], she w as seen by their department but need a referral Diagnosis 1 Other cyst of bone, left hand (M85.642) Referral Organization [facility] Referring Provider First Name Vaughn Referring Provider Last Name Linsey Referred Provider Specialty Hand Surgery General Notes Referral faxed to [facility]. Please call patient to schedule.Moris Christy 12/25/2024 04:55:22 PM > Referral Priority Routine Reason significant tear of 1 of the rotator cuff muscles and tendinitis along with osteoarthritis Diagnosis 1 Pain in left shoulde r (M25.512) Diagnosis 2 Unspecified osteoart hritis, unspecified site (M19.90) Referral Organization [facility] Referring Provider First Name ERICH Referring Provider Last Name AMY Referring Provider Speciality Internal edicine Referred Provider Specialty Orthopedic S urgery General Notes Referral faxed to [facility]. Please call patient to schedule appointment.Jaison Crystal 11/16/2024 11:12:23 AM > Referral Priority Routine Reason [facility]-Please evaluate and treat Diagnosis 1 Other bursal cyst, u nspecified hand (M71.349) Referral Organization [facility] Referring Provider First Name Vaughn Referring Provider Last Name Linsey Referred Provider Specialty Hand Surgery General Notes Referral faxed to [facility]. Please call patient to schedule.Moris Christy 12/25/2024 04:46:39 PM > Referral Priority Routine Reason please evaluate and treat Diagnosis 1 Gastro-esophageal re flux disease without esophagitis (K21.9) Referral Organization [facility] Referring Provider First Name Vaughn Referring Provider Last Name Linsey Referred Provider Specialty Gastroentero logy General Notes Referral was faxed tom [facility]. Please contact patient for scheduling.Guzman Rashida 12/23/2024 07:59:14 AM > Referral Priority Routine Reason [facility] - Dr Jeniffer [facility] please evaluate and treat Diagnosis 1 Type 2 diabetes basilio itus with foot ulcer (E11.621) Referral Organization [facility] Referring Provider First Name ERICH Referring Provider Last Name AMY Referring Provider Speciality Internal edicine Referred Provider Specialty Podiatry General Notes Referral was faxed t [facility]. Please contact patient for scheduling.Guzman Rashida 01/08/2025 01:13:21 PM > Referral Priority Routine Reason itching of scalp P lease evaluate and treat Diagnosis 1 Seborrhea capitis (L 21.0) Referral Organization [facility] Referring Provider First Name JUNG Referring Provider Last Name [facility] Referring Provider Speciality Internal edicine Referred Provider Specialty Dermatology General Notes Please call the spenser ent to schedule the appointment, [facility]. Please contact them at [phone], Rayna Pacheco 03/11/2025 04:21:53 PM > Referral Priority Routine Reason Cyst left 5 finger Please evaluate and treat Diagnosis 1 Sebaceous cyst (L72. 3) Referral Organization [facility] Referring Provider First Name JUNG Referring Provider Last Name [facility] Referring Provider Speciality Internal edicine Referred Provider Specialty Surgery General Notes Please call the spenser ent to schedule the appointment, [facility]. Please contact them at [phone], Rayna Pacheco 03/18/2025 03:39:53 PM > Referral Priority Urgent Reason PLEASE EVALUATE AND TREAT Please evaluate and treat Diagnosis 1 Cough (R05.9) Referral Organization [facility] Referring Provider First Name Aranza Referring Provider Last Name Linsey Referred Provider Specialty Pulmonology General Notes Please call the spenser ent to schedule the appointment, Encounter created and SMS sent to the pt., Rayna Pacheco 04/26/2025 04:35:06 PM > Referral Priority Routine Reason Please evaluate and treat Diagnosis 1 Postmenopausal bleed ing (N95.0) Referral Organization [facility] Referring Provider First Name Vaughn Referring Provider Last Name Linsey Referred Provider Specialty Area Plant Manager and water supervisor General Notes Referral was faxed t [facility]. Please contact patient for scheduling.Guzman Rashida 07/06/2025 01:12:27 PM > Referral Priority Urgent Medications Medication SIG (Take, Route, Frequency, Duration) Notes Start Date End Date Status Ampicillin 500 MG 1 capsule Orally 8 hours; Duration: 5 days 12/31/2023 Not-Taking Ciprofloxacin-dexAMETHasone 0.3-0.1 % 4 drops into affected ear Otic Twice a day; Duration: 7 days 08/19/2025 Active metFORMIN HCl 1000 MG 1 tablet with a me al Orally 2 TIMES A DAY; Duration: 30 day(s) Active Albuterol Sulfate HFA 108 (90 Base) MCG/ACT 1 puff as needed Inhalation every 4 hrs; Duration: 30 days Active Fluticasone Propionate 50 MCG/ACT SHAKE LIQUID AND USE 1 SPRAY in EACH NOSTRIL EVERY DAY Nasally Twice a day; Duration: 30 days Active Ketoconazole 2 % as directed Externally 4 times a week; Duration: 30 days 03/11/2025 Active hydroCHLOROthiazide 25 MG 1 tablet in th morning Orally Once a day; Duration: 90 days Active Symbicort 80-4.5 MCG/ACT as directed Inhalation twice a day; Duration: 30 days 04/22/2025 Active Hydrocortisone Anti-Itch 1 % 1 applicati on Externally Once a day; Duration: 30 days 11/01/2022 Active Esomeprazole Magnesium 40 MG 1 capsule 1 /2 to 1 hour before morning meal Orally Once a day; Duration: 30 days 05/20/2025 Active Mylanta Maximum Strength 400-400-40 MG/5ML 10 mL as needed Orally Twice a day; Duration: 30 days 05/20/2025 Active Mounjaro 5 MG/0.5ML 5 mg Subcutaneous weekly; Duration: 30 days 06/15/2025 Active Atorvastatin Calcium 10 MG TAKE 1 TABLET BY MOUTH EVERY DAY; Duration: 90 days Active Ibuprofen 600 MG 1 tablet with food or milk as needed Orally Three times a day; Duration: 30 days Active Fluconazole 150 MG 1 tablet Orally daily; Duration: 7 days 05/20/2025 Not-Taking Ozempic (0.25 or 0.5 MG/DOSE) 2 MG/3ML once weekly Subcutaneous weekly 05/11/2024 Not-Taking Doxycycline Hyclate 100 MG 1 capsule Ora lly Twice a day; Duration: 7 days 12/15/2024 Not-Taking Amitriptyline HCl 10 MG 1 tablet at bedt linnea Orally Once a day; Duration: 30 day(s) 11/29/2022 Not-Taking ZyrTEC 10 MG 1 tablet Orally Once a day; Duration: 30 day(s) Not-Taking hydrOXYzine HCl 25 MG 1 tablet as needed Orally Once a day; Duration: 30 days 12/31/2023 Not-Taking amLODIPine Besylate 5 MG 1 tablet Orally Once a day; Duration: 30 days 06/15/2025 Active Doxycycline Hyclate 50 MG 1 capsules Ora lly Twice a day; Duration: 7 days 02/19/2024 Not-Taking Aspirin 81 MG 1 tablet Orally Once a day Active tiZANidine HCl 2 MG TAKE 1 TABLET BY MOUTH THREE TIMES DAILY FOR 7 DAYS NEEDED; Duration: 7 Not-Taking FreeStyle Lancets - as directed for use with freestyle llite sc daily; Duration: 90 days Active FreeStyle [place] Lite w/Device as directed in vitro daily; Duration: 90 days Active Immunizations Vaccine Route Administration Date Status Comme nts COVID 19 Pfizer Unknown 02/21/2021 Administered COVID 19 Pfizer Unknown 03/14/2021 Administered COVID-19 Pfizer Unknown 09/15/2022 Administered Fluzone High-Dose IM Intramuscular 08/19/2025 Administered Prevnar 20 Unknown 12/31/2022 Administered Shingrix Unknown 12/31/2022 Administered Shingrix Unknown 01/08/2024 Administered Td (adult) preservative free Unknown 03/25/2014 Administered Social History Tobacco Use: Social History Observation [...] ulcer due to type 2 diabetes mellitus (7257857366505) Type 2 diabetes mellitus with foot ulcer (E11.621) Active confirmed Problem Disorder due to type 2 diabetes mellitus (634729370) Type 2 diabetes mellitus with unspecified complications (E11.8) Active confirmed Problem Hyperlipidemia (03281662) Hyperlipidemia, unspecified (E78.5) Active confirmed Problem Tension-type headache (843132756) Tension-type headache, unspecified, not intractable (G44.209) Active confirmed Problem Essential hypertension (48165073) Essential (primary) hypertension (I10) Active confirmed Problem Seasonal allergic rhinitis (377445617) Other seasonal allergic rhinitis (J30.2) Active confirmed Problem Mild intermittent asthma (970640942) Mild intermittent asthma, uncomplicated (J45.20) Active confirmed Problem Gastro-esophageal reflux disease without esophagitis (942481016) Gastro-esophageal reflux disease without esophagitis (K21.9) Active confirmed Problem Osteoarthritis (085442370) Unspecified osteoarthritis, unspecified site (M19.90) Active confirmed Problem Pain of right knee region (finding) (060812749761422) Pain in right knee (M25.561) Active confirmed Problem Postmenopausal bleeding (13826685) Postmenopausal bleeding (N95.0) Active confirmed Problem Visual hallucinations (19189537) Visual hallucinations (R44.1) Active confirmed Problem Hallucinations (7803468) Hallucinations, unspecified (R44.3) Active confirmed Problem Age-related osteoporosis (694868032) Osteoporosis without current pathological fracture, unspecified osteoporosis type (M81.0) Active confirmed Problem Bilateral carpal tunnel syndrome (2970885865360806 1) Bilateral carpal tunnel syndrome (G56.03) Active confirmed Problem Type II diabetes mellitus without complication (551620557) Controlled type 2 diabetes mellitus without complication, without long-term current use of insulin (E11.9) Active confirmed Vital Signs Heart Rate 72 /min 08/19/2025 Temperature 97.3 degrees Fahrenheit 08/19/2025 Blood pressure diastolic 68 mm Hg 08/19/2025 Oximetry 97 % 08/19/2025 Height 60 in 08/19/2025 Blood pressure systolic 130 mm Hg 08/19/2025 Weight 176.0 lbs 08/19/2025 BMI 34.37 kg/m2 08/19/2025 Encounters Encounter Location Date Provider Diagnosis [address] [address] 10/29/2024 Vaughn Stiles [address] [address] 09/10/2024 Ghadeer Mazloum Accident due to mechanical fall without injury, subsequent encounter W19.XXXD ; Pain in left shoulder M25.512 ; Pain in left knee M25.562 and Essential (primary) hypertension I10 [address] [address] 10/30/2024 Ghadeer Mazloum Other cyst of bone, left hand M85.[address] [address] 12/15/2024 Ghadeer Mazloum Abdominal bloating R14.0 ; Folliculitis L73.9 ; Mild intermittent asthma, uncomplicated J45.20 and Gastro-esophageal reflux disease without esophagitis K21.[address] [place] [address] 12/22/2024 Ghadeer Mazloum Other bursal cyst, unspecified hand M71.[address] [place] [address] 01/08/2025 JUNG GUL Type 2 diabetes mellitus with unspecified complications E11.8 ; Encounter for general adult medical examination without abnormal findings Z00.00 ; Essential (primary) hypertension I10 ; Hyperlipidemia, unspecified E78.5 and Mild intermittent asthma, uncomplicated J45.[address] [place] [address] 03/11/2025 JUNG GUL Type 2 diabetes mellitus with unspecified complications E11.8 ; Seborrhea capitis L21.0 ; Essential (primary) hypertension I10 ; Hyperlipidemia, unspecified E78.5 and Mild intermittent asthma, uncomplicated J45.[address] [place] [address] 03/18/2025 JUNG GUL Seborrhea capitis L2 1.0 ; Sebaceous cyst L72.3 ; Type 2 diabetes mellitus with unspecified complications E11.8 ; Essential (primary) hypertension I10 ; Hyperlipidemia, unspecified E78.5 and Mild intermittent asthma, uncomplicated J45.[address] [place] [address] 04/22/2025 Ghadeer Mazloum Cough R05.9 and Essential (primary) hypertension I10 [address] [place] [address] 05/20/2025 Ghadeer Mazloum Acute gastritis with out bleeding K29.00 ; Bilateral carpal tunnel syndrome G56.03 ; Dysuria R30.0 and Type 2 diabetes mellitus with unspecified complications E11.[address] [place] [address] 06/15/2025 Ghadeer Mazloum Essential (primary) hypertension I10 ; Type 2 diabetes mellitus with unspecified complications E11.8 and Dysuria R30.0 [facility] [address] [place] [address] 07/06/2025 Ghalbertoer Rafaelloum Essential (primary) hypertension I10 ; Type 2 diabetes mellitus with unspecified complications E11.8 and Postmenopausal bleeding N95.0 [facility] [address] [place] [address] 07/27/2025 Ghadeer Mazloum Essential (primary) hypertension I10 ; Type 2 diabetes mellitus with unspecified complications E11.8 and Postmenopausal bleeding N95.0 [facility] [address] [place] [address] 08/19/2025 [facility] Type 2 diabetes mellitus with unspecified complications E11.8 ; Essential (primary) hypertension I10 ; Postmenopausal bleeding N95.0 ; Otalgia, right ear H92.01 and Encounter for immunization Z23 [facility] [address] [place] [address] 09/09/2024 [facility] [address] [place] [address] 09/10/2024 [facility] [address] [place] [address] 09/16/2024 [facility] [address] [place] [address] 10/14/2024 [facility] [address] [place] [address] 10/23/2024 [facility] [address] [place] [address] 10/29/2024 [facility] [address] [place] [address] 11/16/2024 [facility] [address] [place] [address] 12/23/2024 [facility] [address] [place] [address] 12/23/2024 [facility] [address] [place] [address] 12/25/2024 [facility] [address] [facility] [place] [address] 12/25/2024 [facility] [address] [place] [address] 01/08/2025 [facility] [address] [place] [address] 04/08/2025 [facility] [address] [place] [address] 04/12/2025 [facility] [address] [place] [address] 04/22/2025 [facility] [address] [place] [address] 04/26/2025 [facility] [address] [place] [address] 05/10/2025 [facility] [address] [place] [address] 05/25/2025 [facility] [address] [place] [address] 06/25/2025 [facility] [address] [place] [address] 07/12/2025 [facility] [address] [place] [address] 08/24/2025 [facility] [address] [place] [address] 08/26/2025 [facility] Pneumonia, unspecifi ed organism J18.9 Assessments Encounter Date Diagnosis (ICD Code) Assessment Notes Treatment Notes Treatment Clinical Notes Section Notes 09/10/2024 Accident due to mechanical fall without [...] fifith digit - She was evaluated by [facility] department. Xray was performed and [...] as referral has been made sent to [facility] dermatology. I have rendered the services [...] She is on statins. She is seeing medical staff assistant earlier this year. Foot care discussed and [...] She is on statins. She is seeing medical staff assistant earlier this year. Foot care discussed and [...] She is on statins. She is seeing medical staff assistant earlier this year. Foot care discussed and [...] She is on statins. She is seeing medical staff assistant earlier this year. Foot care discussed and [...] She is on statins. She is seeing medical staff assistant earlier this year. Foot care discussed and [...] She is on statins. She is seeing medical staff assistant earlier this year. Foot care discussed and [...] here today for recent ER discharge from [facility]. Patient was seen consecutivelyAt the ER for symptoms of coughing. Plan as follows Cough. She was recently seen at [facility] with x-ray negative for cardiopulmonary process. She [...] currently on metformin. She does follow with medical staff assistant on a regular basis. Foot care discussed. [...] currently on metformin. She does follow with medical staff assistant on a regular basis. Foot care discussed. [...] incision is intact. It was done at [place] and she has a follow-up tomorrow for [...] software. Despite multiple revisions, Errors may persist 07/06/2025 Type 2 diabetes mellitus with unspecified complications (ICD-10 - E11.8) Ms. Chin is a 74-year-old lady with DM type II, hypertension, hyperlipidemia, acid reflux and history of hallucinations, Sickle cell trait and alpha thalassemia trait, seborrheic capitis Is here Follow-up On blood pressure. Plan as follows Hypertension. Her blood pressure is elevated in the office today compared to previously has been fluctuating. Increase amlodipine to 5 mg and continue chlorthalidone. We will follow up in 3 weeks Type 2 diabetes. Recent A1c of 7.7. She is currently on metformin thousand milligrams twice a day. Continue on Mounjaro 2.5mg. Diet modification as discussed and discussed the importance of being compliant. We will recheck A1c and 3 months Postmenopausal bleeding. She admits to 3 episodes so far. Denies urinary symptoms, no pelvic pain or pressure. She is not on HRT. Referred patient to [facility] for further evaluation to rule out any endometrial Hyperplasia Versus Endometrial polyp. Recent blood work has been discussed with the patient General concerns have been discussed I have rendered the services for this patient under direct supervision of Dr. Reyes, who did not see the patient but was available upon requestContent of this note has been dictated using voice recognition software. Despite multiple revisions, Errors may persist 07/06/2025 Essential (primary) hypertension (ICD-10 - I10) Ms. Chin is a 74-year-old lady with DM type II, hypertension, hyperlipidemia, acid reflux and history of hallucinations, Sickle cell trait and alpha thalassemia trait, seborrheic capitis Is here Follow-up On blood pressure. Plan as follows Hypertension. Her blood pressure is elevated in the office today compared to previously has been fluctuating. Increase amlodipine to 5 mg and continue chlorthalidone. We will follow up in 3 weeks Type 2 diabetes. Recent A1c of 7.7. She is currently on metformin thousand milligrams twice a day. Continue on Mounjaro 2.5mg. Diet modification as discussed and discussed the importance of being compliant. We will recheck A1c and 3 months Postmenopausal bleeding. She admits to 3 episodes so far. Denies urinary symptoms, no pelvic pain or pressure. She is not on HRT. Referred patient to [facility] for further evaluation to rule out any endometrial Hyperplasia Versus Endometrial polyp. Recent blood work has been discussed with the patient General concerns have been discussed I have rendered the services for this patient under direct supervision of Dr. Reyes, who did not see the patient but was available upon requestContent of this note has been dictated using voice recognition software. Despite multiple revisions, Errors may persist 07/27/2025 Type 2 diabetes mellitus with unspecified complications (ICD-10 - E11.8) Ms. Chin is a 74-year-old lady with DM type II, hypertension, hyperlipidemia, acid reflux and history of hallucinations, Sickle cell trait and alpha thalassemia trait, seborrheic capitis Is here Follow-up On blood pressure. Plan as follows Hypertension. Her blood pressure is within acceptable range on repeat, continue amlodipine to 5 mg and continue chlorthalidone. Type 2 diabetes. Recent A1c of 7.7. She is currently on metformin thousand milligrams twice a day. Continue on Mounjaro 2.5mg. Diet modification as discussed and discussed the importance of being compliant. Check A1c and lipid panel Postmenopausal bleeding. Referred patient to a different practice, will also obtain transvaginal pelvic ultrasound to rule out any abnormalities at this point while awaiting gynecology appointment. General concerns have been discussed I have rendered the services for this patient under direct supervision of Dr. Reyes, who did not see the patient but was available upon requestContent of this note has been dictated using voice recognition software. Despite multiple revisions, Errors may persist 07/27/2025 Essential (primary) hypertension (ICD-10 - I10) Ms. Chin is a 74-year-old lady with DM type II, hypertension, hyperlipidemia, acid reflux and history of hallucinations, Sickle cell trait and alpha thalassemia trait, seborrheic capitis Is here Follow-up On blood pressure. Plan as follows Hypertension. Her blood pressure is within acceptable range on repeat, continue amlodipine to 5 mg and continue chlorthalidone. Type 2 diabetes. Recent A1c of 7.7. She is currently on metformin thousand milligrams twice a day. Continue on Mounjaro 2.5mg. Diet modification as discussed and discussed the importance of being compliant. Check A1c and lipid panel Postmenopausal bleeding. Referred patient to a different practice, will also obtain transvaginal pelvic ultrasound to rule out any abnormalities at this point while awaiting gynecology appointment. General concerns have been discussed I have rendered the services for this patient under direct supervision of Dr. Reyes, who did not see the patient but was available upon requestContent of this note has been dictated using voice recognition software. Despite multiple revisions, Errors may persist 08/19/2025 Type 2 diabetes mellitus with unspecified complications (ICD-10 - E11.8) Ms. Chin is a 74-year-old lady with DM type II, hypertension, hyperlipidemia, acid reflux and history of hallucinations, Sickle cell trait and alpha thalassemia trait, seborrheic capitis Is here Follow-up On blood work. Plan as follows Hypertension. Her blood pressure is within acceptable range on repeat, continue amlodipine to 5 mg and continue chlorthalidone. Type 2 diabetes. Recent A1c of 7.0. She is currently on metformin thousand milligrams twice a day.and increase Mounjaro 5mg. Diet modification as discussed and discussed the importance of being compliant. Check A1c and lipid panel. Otalgia right ear. She started on Cipro Floxin/dexamethaso ne eardrops for 7 days. Obesity. Encouraged to lose weight and diet restrictions discussed. General concerns have been discussed Content of this note has been dictated using voice recognition software. Despite multiple revisions, Errors may persist 08/19/2025 Essential (primary) hypertension (ICD-10 - I10) Ms. Chin is a 74-year-old lady with DM type II, hypertension, hyperlipidemia, acid reflux and history of hallucinations, Sickle cell trait and alpha thalassemia trait, seborrheic capitis Is here Follow-up On blood work. Plan as follows Hypertension. Her blood pressure is within acceptable range on repeat, continue amlodipine to 5 mg and continue chlorthalidone. Type 2 diabetes. Recent A1c of 7.0. She is currently on metformin thousand milligrams twice a day.and increase Mounjaro 5mg. Diet modification as discussed and discussed the importance of being compliant. Check A1c and lipid panel. Otalgia right ear. She started on Cipro Floxin/dexamethaso ne eardrops for 7 days. Obesity. Encouraged to lose weight and diet restrictions discussed. General concerns have been discussed Content of this note has been dictated using voice recognition software. Despite multiple revisions, Errors may persist 08/26/2025 Pneumonia, unspecified organism (ICD-10 - J18.9) 08/19/2025 Postmenopausal bleeding (ICD-10 - N95.0) Ms. Chin is a 74-year-old lady with DM type II, hypertension, hyperlipidemia, acid reflux and history of hallucinations, Sickle cell trait and alpha thalassemia trait, seborrheic capitis Is here Follow-up On blood work. Plan as follows Hypertension. Her blood pressure is within acceptable range on repeat, continue amlodipine to 5 mg and continue chlorthalidone. Type 2 diabetes. Recent A1c of 7.0. She is currently on metformin thousand milligrams twice a day.and increase Mounjaro 5mg. Diet modification as discussed and discussed the importance of being compliant. Check A1c and lipid panel. Otalgia right ear. She started on Cipro Floxin/dexamethaso ne eardrops for 7 days. Obesity. Encouraged to lose weight and diet restrictions discussed. General concerns have been discussed Content of this note has been dictated using voice recognition software. Despite multiple revisions, Errors may persist 07/27/2025 Postmenopausal bleeding (ICD-10 - N95.0) Ms. Chin is a 74-year-old lady with DM type II, hypertension, hyperlipidemia, acid reflux and history of hallucinations, Sickle cell trait and alpha thalassemia trait, seborrheic capitis Is here Follow-up On blood pressure. Plan as follows Hypertension. Her blood pressure is within acceptable range on repeat, continue amlodipine to 5 mg and continue chlorthalidone. Type 2 diabetes. Recent A1c of 7.7. She is currently on metformin thousand milligrams twice a day. Continue on Mounjaro 2.5mg. Diet modification as discussed and discussed the importance of being compliant. Check A1c and lipid panel Postmenopausal bleeding. Referred patient to a different practice, will also obtain transvaginal pelvic ultrasound to rule out any abnormalities at this point while awaiting gynecology appointment. General concerns have been discussed I have rendered the services for this patient under direct supervision of Dr. Reyes, who did not see the patient but was available upon requestContent of this note has been dictated using voice recognition software. Despite multiple revisions, Errors may persist 07/06/2025 Postmenopausal bleeding (ICD-10 - N95.0) Ms. Chin is a 74-year-old lady with DM type II, hypertension, hyperlipidemia, acid reflux and history of hallucinations, Sickle cell trait and alpha thalassemia trait, seborrheic capitis Is here Follow-up On blood pressure. Plan as follows Hypertension. Her blood pressure is elevated in the office today compared to previously has been fluctuating. Increase amlodipine to 5 mg and continue chlorthalidone. We will follow up in 3 weeks Type 2 diabetes. Recent A1c of 7.7. She is currently on metformin thousand milligrams twice a day. Continue on Mounjaro 2.5mg. Diet modification as discussed and discussed the importance of being compliant. We will recheck A1c and 3 months Postmenopausal bleeding. She admits to 3 episodes so far. Denies urinary symptoms, no pelvic pain or pressure. She is not on HRT. Referred patient to [facility] for further evaluation to rule out any endometrial Hyperplasia Versus Endometrial polyp. Recent blood work has been discussed with the patient General concerns have been discussed I have [...] incision is intact. It was done at [place] and she has a follow-up tomorrow for [...] currently on metformin. She does follow with medical staff assistant on a regular basis. Foot care discussed. [...] here today for recent ER discharge from [facility]. Patient was seen consecutivelyAt the ER for symptoms of coughing. Plan as follows Cough. She was recently seen at [facility] with x-ray negative for cardiopulmonary process. She [...] She is on statins. She is seeing medical staff assistant earlier this year. Foot care discussed and [...] She is on statins. She is seeing medical staff assistant earlier this year. Foot care discussed and [...] She is on statins. She is seeing medical staff assistant earlier this year. Foot care discussed and [...] patient but was available upon request 09/10/2024 Essential (primary) hypertension (ICD-10 - I10) [...] She is on statins. She is seeing medical staff assistant earlier this year. Foot care discussed and [...] She is on statins. She is seeing medical staff assistant earlier this year. Foot care discussed and [...] She is on statins. She is seeing medical staff assistant earlier this year. Foot care discussed and [...] currently on metformin. She does follow with medical staff assistant on a regular basis. Foot care discussed. [...] patient but was available upon request 06/15/2025 Dysuria (ICD-10 - R30.0) Ms. Chin is a 74-year-old lady with DM type II, hypertension, hyperlipidemia, acid reflux and history of hallucinations, Sickle cell trait and alpha thalassemia trait, seborrheic capitis Is here Follow-up and a recent cyst removal. Plan as follows Cyst removal. Her incision is intact. It was done at [place] and she has a follow-up tomorrow for [...] software. Despite multiple revisions, Errors may persist 08/19/2025 Otalgia, right ear (ICD-10 - H92.01) Ms. Chin is a 74-year-old lady with DM type II, hypertension, hyperlipidemia, acid reflux and history of hallucinations, Sickle cell trait and alpha thalassemia trait, seborrheic capitis Is here Follow-up On blood work. Plan as follows Hypertension. Her blood pressure is within acceptable range on repeat, continue amlodipine to 5 mg and continue chlorthalidone. Type 2 diabetes. Recent A1c of 7.0. She is currently on metformin thousand milligrams twice a day.and increase Mounjaro 5mg. Diet modification as discussed and discussed the importance of being compliant. Check A1c and lipid panel. Otalgia right ear. She started on Cipro Floxin/dexamethaso ne eardrops for 7 days. Obesity. Encouraged to lose weight and diet restrictions discussed. General concerns have been discussed Content of this note has been dictated using voice recognition software. Despite multiple revisions, Errors may persist 08/19/2025 Encounter for immunization (ICD-10 - Z23) Ms. Chin is a 74-year-old lady with DM type II, hypertension, hyperlipidemia, acid reflux and history of hallucinations, Sickle cell trait and alpha thalassemia trait, seborrheic capitis Is here Follow-up On blood work. Plan as follows Hypertension. Her blood pressure is within acceptable range on repeat, continue amlodipine to 5 mg and continue chlorthalidone. Type 2 diabetes. Recent A1c of 7.0. She is currently on metformin thousand milligrams twice a day.and increase Mounjaro 5mg. Diet modification as discussed and discussed the importance of being compliant. Check A1c and lipid panel. Otalgia right ear. She started on Cipro Floxin/dexamethaso ne eardrops for 7 days. Obesity. Encouraged to lose weight and diet restrictions discussed. General concerns have been discussed Content of this note has been dictated using voice recognition software. Despite multiple revisions, Errors may persist 03/18/2025 Hyperlipidemia, unspecified (ICD-10 - E78.5) Lorin [...] She is on statins. She is seeing medical staff assistant earlier this year. Foot care discussed and [...] She is on statins. She is seeing medical staff assistant earlier this year. Foot care discussed and [...] She is on statins. She is seeing medical staff assistant earlier this year. Foot care discussed and [...] She is on statins. She is seeing medical staff assistant earlier this year. Foot care discussed and [...] 25OH VITAMIN D 08/21/2022 COMPREHENSIVE METABOLIC PANEL 11/01/2022 COMPREHENSIVE METABOLIC PANEL 08/21/2022 COMPREHENSIVE METABOLIC PANEL 08/10/2022 HEMOGLOBIN A1C WITH EST GLUCOSE 08/21/20 LIPID PANEL 08/21/2022 LIPID PANEL 08/10/2022 MICROALBUMIN, URINE 08/10/2022 MICROALBUMIN, URINE 08/21/2022 CT Chest WO 04/22/2025 Ultrasound: Transvaginal Pelvic Sono Xray: Chest-Standard Frontal & Lat 08/26 Hemoglobin [id number] 06/15/2025 Hgb A1c with eAG Estimation-[id number] 05/11 Comp. Metabolic Panel [id number] 2024 Future Test Test Name Order Date Hemoglobin [id number] 08/19/2025 Lipid Panel-[id number] 08/19/2025 Next Appt Details Provider Name:Vaughn steward, 01/21/2026 11:00:00 AM, [address] [place] [address], [place], [address], Insurance Providers Payer Name Payer Address Payer Phone Subscriber Number Group Number Insured Name Patient Relationship to Insured Coverage Start Date Coverage End Date [employer] Medicare [address] [address] [place] [address] [id number] Lorin Chin Self - patient is the insured [place] [address] [place] [address] [id number] Lorin Chin Self - patient is the insured Medical (General) History Medical History History ICD Code hypertension DM T 2 Diet control Asthma Seasonal Allergies headaches colon polyps 2021 Surgical History Surgery Date(Month/Year) appendectomy Left elbow fx
--- OUTSIDE RECORDS SUMMARY | 2025-09-01 14:17 | XMS_ITS | Clinical Summary ---
Author Organization [facility] Address [address] [place] [phone] Phone Care Team Providers Care Toolroom Checker Name Role Phone Leonardo Jennifer Fung MD Primary Care Provider [phone] Allergies Active Allergy Reactions Criticality Noted Date Comments Lisinopril Headache,Pain,Palpit ati ons,Other 09/08/2024 uncertaint o me if htis [facility] as of [id number] ER note 01-03-2016 Naproxen Itching 09/08/2024 Medications [...] mg total) by mouth. 1 Active lancets (GCD SystemeTouch Delica Plus Lancet) 33 gauge DIRECTED FOR [...] EACH NOSTRIL TWICE DAILY EVERY DAY Active GCD SystemeTouch Ultra2 Meter misc DIRECTED DAILY 4 Active RingMDuch Ultra Test test strip USE DIRECTED TO [...] 1 tablet (40 mg total) by mouth 1 (one) time each day. Do not crush, chew, or split. 90 each 3 5 07/30/20 26 Active Active Problems Problem Noted Date Diagnosed Date Allergic rhinitis 07/29/2025 Fracture of elbow 07/29/2025 Heartburn 07/29/2025 History of colonic polyps 07/29/2025 Overview (07/29/2025): tubular adenomas seen on colonoscopy April 2021 Hypertension 07/29/2025 Iron deficiency anemia 07/29/2025 Murder of relative 07/29/2025 Class 1 obesity 07/29/2025 Sickle cell trait ([facility] V24) 07/29/2025 Overview (07/29/2025): Hgb electrophoresis 12/27/2003 Type 2 diabetes mellitus ([facility] V24, [facility] V 28) 07/29/2025 Vitamin D deficiency 07/29/2025 Alpha thalassaemia minor 12/27/2003 Overview (07/29/2025): Hgb electrophoresis 12/27/2003 Encounters Date Type Department Care Team Description 07/30/2025 10:50 AM EDT Office Visit Gastroenterology - [address] [facility] [address] [place] [address] Renetta David PA Gastroesophageal reflux disease, unspecified whether esophagitis present (Primary Dx); Periumbilical pain from Last 3 Months Surgical History Surgery Date Site/Laterality Comments APPENDECTOMY ELBOW SURGERY Left ESOPHAGOGASTRODUODENOSCOPY 05/04/2025 - 06/03/2025 erosive gastropathy, benign gastric polyp negative for H. Pylori Dr. Poe Medical History Medical History Date Comments Diabetes ([facility] V24, [facility] V28) Hypertension Asthma Arthritis Hyperlipidemia GERD (gastroesophageal reflux disease) Social History Tobacco Use Types Packs/Day Years Used Date Smoking Tobacco: Former Cigarettes Smokeless Tobacco: Never Tobacco Cessation:Counseling Given: Not Answered Alcohol Use Standard Drinks/Week Comments Yes 0 (1 standard drink = 0.6 oz pur e alcohol) occ Interpersonal Safety Answer Date Record ed Physical Abuse Unrecognized value 05/17/2025 Verbal Abuse Unrecognized value 05/17/2025 Comments Unknown Sex and Gender Information [...] EDT Inhaled Oxygen Concentration - - Weight 79.8 kg (176 lb) 07/30/2025 10:39 AM EDT Height 160 cm (5' 3 ) 07/30/2025 10:39 AM EDT Body Mass Index 31.18 07/30/2025 10:39 AM EDT Plan of Treatment Health Maintenance Due Date Last Done Comments Breast Cancer Screening 1950 Colorectal Cancer Screening: Colonoscopy 1950 Diabetes: Annual Foot Exam 1960 Diabetes: Annual Retina Eye Exam 1960 RSV Immunization Adult Patients (1 - Risk 50-74 years 1-dose series) 2000 Zoster Vaccines (2 of 3) 04/16/2016 02/20/2016 Cholesterol Screening (Lipid Panel) 11/28/2023 Hepatitis C Screening 11/28/2023 Medicare Annual Wellness Visit 11/28/2023 Osteoporosis Screening (Bone Density Screening) 11/28/2023 Social Influencers of Health Screening 11/28/2023 Diabetes: Annual Urine Albumin-Creatinine Ratio (uACR) 09/09/2024 Diabetes: Blood Sugar Contro l Test (HGBA1C) 09/09/2024 Depression Screening 11/04/2024 COVID-19 Vaccine (3 - 2024-2 6 season) 2025 03/14/2021, 02/21/2021 Influenza Vaccine (#1) 2025 7, 08/05/2009 Diabetes: [...] Procedure Name Priority Date/Time Associated Diagnosis Comments COMPREHENSIVE METABOLIC PANEL STAT 04/10/2025 1:21 PM EDT from Last 3 Months or Most Recently Relevant to Health Maintenance Results * (ABNORMAL) Comprehensive metabolic panel (04/10/2025 1:21 PM EDT) Sodium 143 133 - 145 mmol/L LAB [...] 04/10/2025 3:01 PM [facility] Total Protein 6.5 6.0 - 8.0 g/dL LAB CHEMISTRY METHOD 04/10/2025 3:01 PM [facility] Albumin 3.4 3.2 - 5.0 g/dL LAB CHEMISTRY METHOD 04/10/2025 3:01 PM [facility] Total Bilirubin 0.2 0.0 - 1.4 mg/dL LAB CHEMISTRY METHOD 04/10/2025 3:01 PM [facility] Blood Venous blood specimen / Unknown Venipuncture / Unknown 04/10/2025 1:21 PM EDT 04/10/2025 2:34 PM EDT us Cierra Sow MD LAB BLOOD ORDERABLES Final Resul t [facility] [address] [place] [address], from Last 3 Months or Most Recently Relevant to Health Maintenance Insurance [employer] MEDICARE MEDICAID - [place] Care Teams Toolroom Checker Relationship Specialty Start Date End Date Jennifer Patterson MD [address] [place] [address] PCP - General Internal Medicine 12/23/24
== END 2025-09-01 11:57 | disposition home or self-care (01) ==
LOC: HO.HPSW 11:16
PROVIDERS: PCP Hospitalist; Visit Provider Nurse Practitioner Family
DX: J45.909 Unspecified asthma, uncomplicated (principal); Z91.09 Other allergy status, other than to drugs and biological substances; Z87.01 Personal history of pneumonia (recurrent)
CPT/HCPCS: 99204

== ENCOUNTER → 2025-09-01 11:15 | Outpatient (BNVA) | payer MEDICARE, SELFPAY | PROVIDERS: PCP Hospitalist; Visit Provider Nurse Practitioner Family | DX: J45.909 Unspecified asthma, uncomplicated (principal); Z91.09 Other allergy status, other than to drugs and biological substances; R06.09 Other forms of dyspnea; R91.8 Other nonspecific abnormal finding of lung field; Z87.01 Personal history of pneumonia (recurrent); Z87.891 Personal history of nicotine dependence | CPT/HCPCS: 99202 ==

== ENCOUNTER 2025-09-29 14:23 | Outpatient (REF) | payer MEDICARE, SELFPAY ==
--- NOTE | ~2025-09-29 | XR_ITS ---
EXAMINATION: XR CHEST 2 VIEWS HISTORY: Z87.01 - Personal history of pneumonia (recurrent) COMPARISON: Comparison is made with the prior examination dated 11/30/2022. FINDINGS: PA and lateral views of the chest are submitted. The lungs are expanded and clear. There is no pleural effusion, pneumothorax, or pulmonary vascular congestion. The heart is normal in size. There is mild dextroscoliosis. XR/XR chest 2V IMPRESSION: No acute cardiopulmonary abnormality. Electronically signed by: Jignesh Stephenson MD 09/29/2025 02:52 PM EST
--- NOTE | ~2025-09-29 | CT_ITS ---
EXAMINATION: CT CHEST WITHOUT CONTRAST CLINICAL INFORMATION: R93.89 - Abnormal findings on diagnostic imaging COMPARISON: None available. TECHNIQUE: Multidetector volumetric CT imaging of the chest was done. Axial MIP volume rendering provided. Sagittal and coronal reformatted images were obtained. This CT examination was performed using dose optimization techniques as appropriate, variously including the following: *Automated exposure control *Adjustment of mA and/or kV according to patient size (this includes techniques or standardized protocols for targeted exams where dose is matched to indication/reason for exam; i.e. extremities or head) *Use of iterative reconstruction technique FINDINGS: LUNGS: There is a 5 mm triangular nodular density along the anterior aspect of the minor fissure likely representing pulmonary lymph node. Flat nodular density along the posterior left major fissure is also likely related to pulmonary clinic. Curvilinear density is noted in the lateral basal right lower lobe, likely scarring or atelectasis. Nodules measured on axial CT #5 Image 75: There is 2 mm solid pulmonary nodule in the anterior right middle lobe. Image 96: There is a 3 mm solid nodule in the posterolateral right lower lobe. Image 100: Lateral left lower lobe: 4 mm solid pulmonary nodule contacts pleura MEDIASTINUM: The mediastinum is normal. CORONARY ARTERY CALCIFICATION: None visualized on this study. PLEURA: There is a 2.5 cm flat area of pleural thickening versus atelectasis in the posterior segment left upper lobe and a similar 1.5 cm area in the lateral base of the left lower lobe. AXILLA: No lymphadenopathy. UPPER ABDOMEN: Single pseudodiverticula is noted in the descending colon. No other abnormalities are noted. OSSEOUS STRUCTURES: Mild degenerative changes are present in the mid to upper thoracic spine. CT/CT chest wo IV con IMPRESSION: There are 3 solid pulmonary nodules measuring up to 4 mm. No further follow-up is indicated per Fleischner Society recommendations, unless the patient falls into a high risk category, in which case a 12 month follow-up CT chest without contrast is optional. High risk patients includes those with a history of smoking, first-degree relative with lung cancer, or exposure to uranium, radon, or asbestos. There are 2 thin flat areas of pleural thickening in the left chest that are of uncertain etiology but demonstrate no aggressive features. Electronically signed by: Tavon Edgar MD 09/29/2025 03:52 PM EST [facility]
== END 2025-09-29 14:24 | disposition home or self-care (01) ==
LOC: HO.CT 14:23
PROVIDERS: PCP Hospitalist; Visit Provider Nurse Practitioner Family
DX: R93.89 Abnormal findings on diagnostic imaging of other specified body structures (principal); Z87.01 Personal history of pneumonia (recurrent)
CPT/HCPCS: 71046; 71250

== ENCOUNTER → 2025-09-29 14:26 | Outpatient (BNV) | payer MEDICARE, SELFPAY | PROVIDERS: PCP Hospitalist; Visit Provider Radiology Diagnostic Radiology | DX: J94.8 Other specified pleural conditions (principal); R91.8 Other nonspecific abnormal finding of lung field; Z87.01 Personal history of pneumonia (recurrent) | CPT/HCPCS: 71046; 71250 ==

== ENCOUNTER 2025-10-13 13:01 | Outpatient (AMB) | payer MEDICARE, SELFPAY ==
--- NOTE | 2025-10-13 13:19 | A.OFFVIS_ITS ---
Vital Signs 10/13/25 13:20 Height 5 ft 4 in Weight 178 lb 2 oz BMI 30.6 BP 122/50 L Blood Pressure Location Rt brachial Position Sitting Pulse 66 Pulse Source Pulse Oximeter Pulse Oximetry (%) 97 Oxygen Delivery Method Room Air Intake Visit Reasons: Cough Allergies esomeprazole Allergy (Severe, Verified 10/13/25 13:21) Itching lisinopril Allergy (Verified 10/13/25 13:21) Itching HPI HPI Cough: Details: Lorin is pleasant 74 year old female former minimal smoker, with underlying asthma, diabetes, hypertension, sickle cell trait, and alpha thalassemia trait. She reported over the last few months requiring multiple rounds of prednisone and antibiotics for bronchitis in April and recently treated for pneumonia. At the last visit, she was started on Arnuity for better asthma control, however finds that it is not as effective as previous ones, and she continues to experience wheezing. She uses her albuterol rescue inhaler twice a day. She also has an occasional dry cough but denies chest tightness, dyspnea. The patient has had no visits to urgent care or the hospital since her last appointment. Today she presents to review chest CT results. Of note, she has upcoming PFT scheduled next month. COUNT INCLUDES THE [facility] Medical History (Updated 10/13/25 @ 14:02 by Bertha Munguia NP) Left elbow fracture Appendicitis Social History Patient Tobacco Use Status: Former Tobacco user Current occupational status: retired Current occupation: rt hand Review of Systems Const Denies chills, Denies excessive sweating, Denies fever(s), Denies headache(s) and Denies night sweats Eyes Denies dry eyes, Denies irritation and Denies itchy eyes ENT Reports Normal hearing present, Denies headache(s), Denies nasal congestion, Denies nasal discharge, Denies post nasal drip and Denies sore throat Card Denies chest pain, Denies chest pain at rest, Denies chest pain with activity, Denies claudication, Denies leg edema, Denies dyspnea, Denies dyspnea on exertion, Denies orthopnea and Denies paroxysmal nocturnal dyspnea Resp Denies change in phlegm color, Denies chest congestion, Reports cough, Denies hemoptysis, Denies excessive phlegm production, Denies pain on inspiration, Denies pain with cough, Denies dyspnea, Denies dyspnea on exertion, Denies stridor and Reports wheezing Musc Denies myalgias Neuro Reports Normal hearing present and Denies headache(s) Endo Denies excessive sweating Yonny/Lymph Denies lymphadenopathy Aller/Immun Denies itchy eyes, Denies seasonal rhinorrhea and Reports wheezing Physical Exam Vital Signs: Last Vital Signs Pulse 66 10/13/25 13:20 BP 122/50 L 10/13/25 13:20 Pulse Ox 97 10/13/25 13:20 Oxygen Delivery Method Room Air 10/13/25 13:20 BMI result Body Mass Index 30.6 Const General: cooperative, healthy appearing, comfortable, no acute distress, well developed and alert Nutritional Appearance: obese Orientation/consciousness: patient oriented x3 Limitations: no limitations HEENT Head: Yes normal to inspection, Yes normocephalic and Yes atraumatic Ears: hearing grossly normal bilaterally and external ears normal Eyes General: appearance normal, both eyes and all related structures Eyelids: Yes eyelids normal Sclerae: sclerae normal EOM: EOMs intact bilaterally Neck Neck: Yes normal visual inspection and Yes no lymphadenopathy Lymphatic: no lymphadenopathy noted Chest Chest palpation & inspection: normal inspection of the chest Resp Effort & Inspection: normal respiratory effort, able to speak in complete sentences, no audible wheezes, no cough, no stridor, not tachypneic, no tripod positioning and no use of accessory muscles Auscultation: clear to auscultation bilaterally Cardio Jugular venous distension: no JVD Rate: regular rate Rhythm: regular rhythm Skin Other: warm, dry General skin exam: no rashes or lesions noted Neuro General: patient oriented x3 Cranial nerves: Yes Normal hearing present Cognition (Neuro): normal cognition Gait exam (Neuro): Normal gait present Extrem General: Yes normal to inspection, Yes capillary refill normal, Yes no clubbing, cyanosis or edema and Yes no pedal edema Psych Appearance: grossly normal and well kempt Speech and movement: Normal speech and movement present and Clear speech present Affect: normal affect Attitude: cooperative Thought process: Normal thought process present Thought content: Normal thought content present Insight: Good insight present (Psych) Judgement: Good judgement present (Psych) Results Reviewed Results Reviewed: [address] [address] [address] Scan Report Signed Patient: Lorin Chin MR#: [id number] : 1950 Acct:[id number] Age/Sex: 74 / F ADM Date: 09/29/25 Loc: HO.CT Attending Dr: Bertha Munguia NP Ordering Physician: Bertha Munguia NP Date of Service: 09/29/25 Procedure(s): CT chest wo IV con Accession Number(s): [id number] cc: Sheldon Patterson MD; Bertha Munguia NP~ Report Number: [id number]: Total DLP = 176.00 mGy-cm Reason for Exam: R93.89 - Abnormal findings on diagnostic imaging of other specified body... EXAMINATION: CT CHEST WITHOUT CONTRAST CLINICAL INFORMATION: R93.89 - Abnormal findings on diagnostic imaging COMPARISON: None available. TECHNIQUE: Multidetector volumetric CT imaging of the chest was done. Axial MIP volume rendering provided. Sagittal and coronal reformatted images were obtained. This CT examination was performed using dose optimization techniques as appropriate, variously including the following: *Automated exposure control *Adjustment of mA and/or kV according to patient size (this includes techniques or standardized protocols for targeted exams where dose is matched to indication/reason for exam; i.e. extremities or head) *Use of iterative reconstruction technique FINDINGS: LUNGS: There is a 5 mm triangular nodular density along the anterior aspect of the minor fissure likely representing pulmonary lymph node. Flat nodular density along the posterior left major fissure is also likely related to pulmonary clinic. Curvilinear density is noted in the lateral basal right lower lobe, likely scarring or atelectasis. Nodules measured on axial CT #5 Image 75: There is 2 mm solid pulmonary nodule in the anterior right middle lobe. Image 96: There is a 3 mm solid nodule in the posterolateral right lower lobe. Image 100: Lateral left lower lobe: 4 mm solid pulmonary nodule contacts pleura MEDIASTINUM: The mediastinum is normal. CORONARY ARTERY CALCIFICATION: None visualized on this study. PLEURA: There is a 2.5 cm flat area of pleural thickening versus atelectasis in the posterior segment left upper lobe and a similar 1.5 cm area in the lateral base of the left lower lobe. AXILLA: No lymphadenopathy. UPPER ABDOMEN: Single pseudodiverticula is noted in the descending colon. No other abnormalities are noted. OSSEOUS STRUCTURES: Mild degenerative changes are present in the mid to upper thoracic spine. CT/CT chest wo IV con IMPRESSION: There are 3 solid pulmonary nodules measuring up to 4 mm. No further follow-up is indicated per Fleischner Society recommendations, unless the patient falls into a high risk category, in which case a 12 month follow-up CT chest without contrast is optional. High risk patients includes those with a history of smoking, first-degree relative with lung cancer, or exposure to uranium, radon, or asbestos. There are 2 thin flat areas of pleural thickening in the left chest that are of uncertain etiology but demonstrate no aggressive features. Electronically signed by: Tavon Edgar MD 09/29/2025 03:52 PM EST Dictated By: Tavon Edgar MD Signed By: <Electronically signed by Tavon Edgar MD in OV> 09/29/25 1552 DD/ 1439 TD/TT: 09/29/25 1530 Inspector Filters: Assessment & Plan Assessment & Plan (1) Asthma: Code(s): J45.909 - Unspecified asthma, uncomplicated Category: Medical (2) Environmental allergies: Code(s): Z91.09 - Other allergy status, other than to drugs and biological substances Category: Medical (3) Multiple pulmonary nodules: Code(s): R91.8 - Other nonspecific abnormal finding of lung field Category: Medical Plan Discussed with the patient that her asthma is not well-controlled on her current Arnuity inhaler, as she still experiences wheezing and needs her albuterol inhaler twice a day. Recommended switching her to Breo, explaining it contains two ingredients to better control her symptoms and reduce the need for the rescue inhaler. She has upcoming PFT scheduled next month. We reviewed her recent CT scan results, and explained that the three small nodules found are not concerning at their current size (largest is 4 mm), but we should monitor them with associated pleural thickening. Recommended a follow-up CT scan in one year to ensure everything remains stable. We will have a follow-up visit in 2-3 months to assess her response to Breo, but she should call sooner if her symptoms worsen. All questions were answered and patient is in agreement of macarena n. Orders: Orders CT chest wo IV con 11 Months R91.8 - Other nonspecific abnormal finding of lung field Medications: New fluticasone furoate-vilanterol 200-25 mcg/dose (Breo Ellipta) 1 inh inhalation DAILY 60 ea 3RF Discontinued fluticasone furoate 100 mcg/actuation (Arnuity Ellipta) Discontinued Reason: Patient Completed Course 1 inh inhalation DAILY 30 ea 3RF Coding Level of Care Code Est Pt Level 4 (72759) Diagnoses Asthma J45.909 Environmental allergies Z91.09 Multiple pulmonary nodules R91.8
[2025-10-13 13:20] VITALS: BP 122/50; PULSE 66; O2SAT 97; BMI 30.6
== END 2025-10-13 15:22 | disposition home or self-care (01) ==
LOC: HO.HPSW 13:01
PROVIDERS: PCP Hospitalist; Visit Provider Nurse Practitioner Family
DX: J45.909 Unspecified asthma, uncomplicated (principal); Z91.09 Other allergy status, other than to drugs and biological substances; R91.8 Other nonspecific abnormal finding of lung field
CPT/HCPCS: 99214

== ENCOUNTER → 2025-10-13 13:01 | Outpatient (BNVA) | payer MEDICARE, SELFPAY | PROVIDERS: PCP Hospitalist; Visit Provider Nurse Practitioner Family | DX: J45.909 Unspecified asthma, uncomplicated (principal); Z91.09 Other allergy status, other than to drugs and biological substances; R91.8 Other nonspecific abnormal finding of lung field | CPT/HCPCS: 99212 ==